=== PATIENT | female | born 1960 | race Two or more races ===

== ENCOUNTER 2020-11-17 07:20 | Inpatient (IN) | payer BC ==
[~2020-11-17] VITALS: Ht 154.9 cm; Wt 70.4 kg
[2020-11-17 08:59] LABS: BASOPHILS % (AUTO) 0.2 % (0-1); EOSINOPHILS % (AUTO) 0 % (0-6); HEMOGLOBIN 13.4 g/dl (12.0-16.0); LYMPHOCYTES # (AUTO) 0.7 X10'3 (1.1-4.8); LYMPHOCYTES % (AUTO) 6.7 % (21-51); MEAN CORPUSCULAR HGB CONC 33.5 g/dL (33.0-36.5); MEAN CORPUSCULAR VOLUME 83.4 FL (78-98); MEAN PLATELET VOLUME 6.7 FL (7.4-10.4); MONOCYTES # (AUTO) 0.8 X10'3 (0-0.9); MONOCYTES % (AUTO) 7.4 % (2-12); NEUTROPHILS # (AUTO) 9.5 X10'3 (1.8-7.7); NEUTROPHILS % (AUTO) 85.7 % (42-75); PLATELET COUNT 500 X10'3 (140-440); RED BLOOD COUNT 4.79 X10'6 (4.20-5.60); RED CELL DISTRIBUTION WIDTH 13.1 % (11.5-14.5); WHITE BLOOD COUNT 11.1 X10'3 (4.5-11.0)
[2020-11-17 09:26] LABS: ALANINE AMINOTRANSFERASE 34 U/L (12-78); ALBUMIN 2.6 G/DL (3.4-5.0); ALBUMIN/GLOBULIN RATIO 0.5 (1.1-1.5); ALKALINE PHOSPHATASE 294 IU/L (46-116); ANION GAP 13 (8-16); ASPARTATE AMINO TRANSFERASE 26 U/L (10-37); BILIRUBIN,TOTAL 0.5 MG/DL (0.1-1.0); BLOOD UREA NITROGEN 4 MG/DL (7-18); CALCIUM 8.4 MG/DL (8.5-10.1); CHLORIDE 101 MMOL/L (99-107); CREATININE 0.67 MG/DL (0.40-0.90); GLUCOSE 109 MG/DL (70-104); MAGNESIUM 2.2 MG/DL (1.5-2.4); SODIUM 140 MMOL/L (135-145); TOTAL CARBON DIOXIDE 26.1 MMOL/L (24-32); eGFR 89 ML/MIN
[2020-11-17] MEDS ORDERED: dexamethasone sod phosphate 10mg/ml inj IV STA (09:28)
[2020-11-17 09:39] LABS: POTASSIUM 2.6 MMOL/L (3.5-5.1)
[2020-11-17] MEDS ORDERED: potassium Cl 20 mEq SR tablet PO STA (09:39)
[2020-11-17] MEDS ORDERED: potassium Cl 10 mEq/100mL bag IV ONE (09:40)
[2020-11-17] MEDS ORDERED: proCHLORperazine 10 MG/2 ml inj IV ONE (09:40)
[2020-11-17] MEDS ORDERED: normal saline 1000ml 1,000 ML IV ONE (09:40)
[2020-11-17] MEDS ORDERED: ondansetron/PF 4mg/2ml inj IV ONE (09:40)
[2020-11-17 09:53] LABS: C-REACTIVE PROTEIN 13.57 MG/DL (0.0-0.5); LACTATE DEHYDROGENASE 408 U/L (81-234)
--- NOTE | 2020-11-17 09:57 | NUR ---
K 2.6 TAKEN BY QUOC SMITH
[2020-11-17] MEDS ORDERED: REMDESIVIR INJ 200 MG in normal saline 100ml IV soln 60 ML IV ONE (10:15)
[2020-11-17] MEDS ORDERED: dexamethasone 6 MG in NS 50ml IV soln IV STA (10:42)
[2020-11-17] MEDS ORDERED: ondansetron/PF 4mg/2ml inj IV PRN (10:55)
[2020-11-17] MEDS ORDERED: morphine 2 MG/ML inj. syringe IV PRN ×2 (10:55)
[2020-11-17] MEDS ORDERED: acetaminophen 325mg tablet PO PRN (10:55)
[2020-11-17] MEDS ORDERED: mag hydrox/Alum hydrox/simeth 30ml oral suspension PO PRN (10:55)
[2020-11-17 11:30] LABS: D-DIMER 1.39 MG/L FEU (0-0.50)
[2020-11-17 12:05] LABS: TROPONIN I < 0.04 NG/ML (0.0-0.05)
[2020-11-17] MEDS ORDERED: AMLO5TAB PO (14:47)
[2020-11-17] MEDS ORDERED: OMEP-50 PO (14:47)
[2020-11-17] MEDS ORDERED: HYDR-3972 PO (14:47)
[2020-11-17] MEDS ORDERED: ALPR0.5T8 PO (14:47)
[2020-11-17] MEDS ORDERED: VENL37.589 PO (14:47)
--- NOTE | 2020-11-17 15:00 | NUR ---
Incont. of urine and stool. Pt was cleaned.
[2020-11-17] MEDS ORDERED: HYDROcodone/acetaminophen 10/325mg tab PO PRN (16:30)
[2020-11-17] MEDS ORDERED: dexamethasone sod phosphate 10mg/ml inj IV SCH (20:00)
--- NOTE | 2020-11-17 21:02 | NUR ---
Report given to LUIS Ramírez.
--- NOTE | 2020-11-17 21:45 | NUR ---
Patient in room COVID 03. I have received report from Justice SMITH and had the opportunity to ask questions and assume patient care. patient admitted to the unit 2144 via . skin check perfoemd with ale smith.
[2020-11-17 22:00] VITALS: BP 117/68
[2020-11-17] MEDS: guaiFENesin/DM 10ml UD oral syrup PO PRN (22:17)
[2020-11-17] MEDS: docusate sod 100mg capsule PO SCH (22:17)
[2020-11-17] MEDS: acetaminophen 325mg tablet PO PRN (22:18)
[2020-11-17] MEDS: dexamethasone 6 MG in NS 50ml IV soln IV SCH (22:37)
[2020-11-18] MEDS ORDERED: magnesium Cl slow-release 64mg tablet PO PRN (00:10)
[2020-11-18] MEDS ORDERED: potassium Cl 40MEQ/1/2NS 520ml 520 ML IV PRN (00:10)
[2020-11-18] MEDS ORDERED: magnesium 4gm in 100ml NS 100 ML IV PRN (00:10)
[2020-11-18] MEDS ORDERED: potassium Cl 20 mEq SR tablet PO PRN (00:10)
[2020-11-18 00:56] LABS: MAGNESIUM 2.5 MG/DL (1.5-2.4); POTASSIUM 4.4 MMOL/L (3.5-5.1)
--- NOTE | 2020-11-18 06:43 | NUR ---
Patient in room COVID 03. I have received report from Marlys SMITH and had the opportunity to ask questions and assume patient care.
[2020-11-18 07:00] VITALS: BP 105/64
[2020-11-18] MEDS: K and/or MAG REPLACEMENT MC SCH ×2 (08:00→20:00)
[2020-11-18 09:02] LABS: BASOPHILS % (AUTO) 0.2 % (0-1); EOSINOPHILS % (AUTO) 0 % (0-6); HEMATOCRIT 38.9 % (35.0-45.0); HEMOGLOBIN 13.1 g/dl (12.0-16.0); LYMPHOCYTES # (AUTO) 0.6 X10'3 (1.1-4.8); LYMPHOCYTES % (AUTO) 4.8 % (21-51); MEAN CORPUSCULAR HEMOGLOBIN 28.4 PG (27.0-31.0); MEAN CORPUSCULAR HGB CONC 33.8 g/dL (33.0-36.5); MEAN CORPUSCULAR VOLUME 84.1 FL (78-98); MONOCYTES # (AUTO) 0.4 X10'3 (0-0.9); MONOCYTES % (AUTO) 3.5 % (2-12); NEUTROPHILS # (AUTO) 10.7 X10'3 (1.8-7.7); NEUTROPHILS % (AUTO) 91.5 % (42-75); PLATELET COUNT 596 X10'3 (140-440); RED BLOOD COUNT 4.62 X10'6 (4.20-5.60); RED CELL DISTRIBUTION WIDTH 13.4 % (11.5-14.5); WHITE BLOOD COUNT 11.7 X10'3 (4.5-11.0)
[2020-11-18 09:28] LABS: ALBUMIN 2.4 G/DL (3.4-5.0); ANION GAP 12 (8-16); BLOOD UREA NITROGEN 10 MG/DL (7-18); BUN/CREATININE RATIO 14.5 (6.6-38.0); CALCIUM 8.7 MG/DL (8.5-10.1); CHLORIDE 106 MMOL/L (99-107); CREATININE 0.69 MG/DL (0.40-0.90); GLUCOSE 168 MG/DL (70-104); POTASSIUM 3.5 MMOL/L (3.5-5.1); SODIUM 143 MMOL/L (135-145); TOTAL CARBON DIOXIDE 25.4 MMOL/L (24-32); eGFR 86 ML/MIN
[2020-11-18] MEDS: enoxaparin 40mg/0.4ml syringe SUBCUT SCH (09:29)
[2020-11-18] MEDS: pantoprazole 40mg Tablet.DR PO SCH (09:30)
[2020-11-18] MEDS: amLODIPine 5mg tablet PO SCH (09:30)
[2020-11-18] MEDS: docusate sod 100mg capsule PO SCH ×2 (09:31→21:01)
[2020-11-18] MEDS: venlafaxine XR 37.5mg cap (Q24H) PO SCH (09:31)
[2020-11-18] MEDS: REMDESIVIR INJ 100 MG in normal saline 100ml IV soln 80 ML IV SCH (09:31)
[2020-11-18] MEDS: dexamethasone 6 MG in NS 50ml IV soln IV SCH ×2 (09:32→21:01)
[2020-11-18] MEDS: HYDROcodone/acetaminophen 5mg/325mg tablet PO PRN (09:58)
[2020-11-18 11:00] VITALS: BP 138/78
--- NOTE | 2020-11-18 12:00 | NUR ---
Dr. Sanders to see pt new orders for imodium prn and robitussin AC prn at night for cough. per dr. sanders, only use the robitussin with codiene during the night.
[2020-11-18 16:13] VITALS: BP 66/78
[2020-11-18] MEDS ORDERED: loperamide 2mg capsule PO PRN (16:35)
--- NOTE | 2020-11-18 18:18 | NUR ---
Problems reprioritized. Patient report given, questions answered & plan of care reviewed with Prudence RN. Pt Spo2 stable on 15LPM High flow. pt eating dinner watching tv.
--- NOTE | 2020-11-18 18:45 | NUR ---
Patient in room COVID 03. I have received report from IVANA SMITH and had the opportunity to ask questions and assume patient care.
[2020-11-18] MEDS: HYDROcodone/acetaminophen 10/325mg tab PO PRN (21:21)
[2020-11-19] MEDS: guaiFENesin/codeine phos 10ml UD oral syrup PO PRN ×2 (02:04→22:29)
--- NOTE | 2020-11-19 06:36 | NUR ---
Problems reprioritized. Patient report given, questions answered & plan of care reviewed with MIL SMITH.
--- NOTE | 2020-11-19 06:36 | NUR ---
Patient in room COVID 03. I have received report from Felisha SMITH and had the opportunity to ask questions and assume patient care.
[2020-11-19 07:00] VITALS: BP 112/73
[2020-11-19] MEDS: K and/or MAG REPLACEMENT MC SCH ×2 (08:00→20:00)
[2020-11-19 08:59] LABS: EOSINOPHILS % (AUTO) 0 % (0-6); HEMOGLOBIN 12.6 g/dl (12.0-16.0); MEAN CORPUSCULAR HEMOGLOBIN 28.2 PG (27.0-31.0); MONOCYTES # (AUTO) 0.5 X10'3 (0-0.9); NEUTROPHILS % (AUTO) 93.1 % (42-75); RED CELL DISTRIBUTION WIDTH 13.5 % (11.5-14.5)
[2020-11-19 09:01] LABS: BASOPHILS % (AUTO) 0.1 % (0-1); HEMATOCRIT 38.6 % (35.0-45.0); LYMPHOCYTES # (AUTO) 0.9 X10'3 (1.1-4.8); LYMPHOCYTES % (AUTO) 4.5 % (21-51); MEAN CORPUSCULAR HGB CONC 32.5 g/dL (33.0-36.5); MEAN CORPUSCULAR VOLUME 86.5 FL (78-98); MONOCYTES % (AUTO) 2.3 % (2-12); NEUTROPHILS # (AUTO) 18.5 X10'3 (1.8-7.7); PLATELET COUNT 684 X10'3 (140-440); RED BLOOD COUNT 4.47 X10'6 (4.20-5.60); WHITE BLOOD COUNT 19.8 X10'3 (4.5-11.0)
[2020-11-19 09:08] LABS: ALBUMIN 2.1 G/DL (3.4-5.0); ANION GAP 12 (8-16); BLOOD UREA NITROGEN 15 MG/DL (7-18); BUN/CREATININE RATIO 22.4 (6.6-38.0); CALCIUM 8.5 MG/DL (8.5-10.1); CHLORIDE 109 MMOL/L (99-107); CREATININE 0.67 MG/DL (0.40-0.90); GLUCOSE 130 MG/DL (70-104); POTASSIUM 3.2 MMOL/L (3.5-5.1); SODIUM 146 MMOL/L (135-145); TOTAL CARBON DIOXIDE 25.3 MMOL/L (24-32); eGFR 89 ML/MIN
[2020-11-19] MEDS: dexamethasone 6 MG in NS 50ml IV soln IV SCH ×2 (09:23→20:01)
[2020-11-19] MEDS: docusate sod 100mg capsule PO SCH ×2 (09:24→20:01)
[2020-11-19] MEDS: amLODIPine 5mg tablet PO SCH (09:24)
[2020-11-19] MEDS: pantoprazole 40mg Tablet.DR PO SCH (09:24)
[2020-11-19] MEDS: enoxaparin 40mg/0.4ml syringe SUBCUT SCH ×2 (09:25→20:01)
[2020-11-19] MEDS: venlafaxine XR 37.5mg cap (Q24H) PO SCH (09:31)
[2020-11-19] MEDS: guaiFENesin/DM 10ml UD oral syrup PO PRN (09:37)
[2020-11-19] MEDS: REMDESIVIR INJ 100 MG in normal saline 100ml IV soln 80 ML IV SCH (09:54)
[2020-11-19 11:00] VITALS: BP 98/58
[2020-11-19] MEDS: potassium Cl 20 mEq SR tablet PO PRN ×2 (14:34→20:01)
--- NOTE | 2020-11-19 18:37 | NUR ---
Problems reprioritized. Patient report given, questions answered & plan of care reviewed with Chelsie SMITH.
[2020-11-19 20:00] VITALS: BP 113/65
[2020-11-20 02:00] VITALS: BP 108/64
--- NOTE | 2020-11-20 06:54 | NUR ---
I have received report from Chelsie SMITH and had the opportunity to ask questions and assume patient care.
[2020-11-20 07:47] VITALS: BP 120/69
[2020-11-20] MEDS: K and/or MAG REPLACEMENT MC SCH ×2 (08:00→20:00)
[2020-11-20] MEDS: docusate sod 100mg capsule PO SCH ×2 (08:00→19:47)
[2020-11-20 08:26] LABS: BASOPHILS % (AUTO) 0.1 % (0-1); EOSINOPHILS % (AUTO) 0 % (0-6); HEMATOCRIT 38.6 % (35.0-45.0); HEMOGLOBIN 12.7 g/dl (12.0-16.0); LYMPHOCYTES # (AUTO) 0.7 X10'3 (1.1-4.8); LYMPHOCYTES % (AUTO) 4.2 % (21-51); MEAN CORPUSCULAR HEMOGLOBIN 28.3 PG (27.0-31.0); MEAN CORPUSCULAR VOLUME 85.8 FL (78-98); MEAN PLATELET VOLUME 6.9 FL (7.4-10.4); MONOCYTES # (AUTO) 0.7 X10'3 (0-0.9); MONOCYTES % (AUTO) 4.7 % (2-12); NEUTROPHILS # (AUTO) 14.4 X10'3 (1.8-7.7); PLATELET COUNT 662 X10'3 (140-440); RED BLOOD COUNT 4.49 X10'6 (4.20-5.60); RED CELL DISTRIBUTION WIDTH 13.3 % (11.5-14.5); WHITE BLOOD COUNT 15.8 X10'3 (4.5-11.0)
[2020-11-20 08:56] LABS: D-DIMER 2.01 MG/L FEU (0-0.50)
[2020-11-20] MEDS: dexamethasone 6 MG in NS 50ml IV soln IV SCH ×2 (09:12→19:47)
[2020-11-20] MEDS: venlafaxine XR 37.5mg cap (Q24H) PO SCH (09:14)
[2020-11-20] MEDS: pantoprazole 40mg Tablet.DR PO SCH (09:15)
[2020-11-20] MEDS: amLODIPine 5mg tablet PO SCH (09:15)
[2020-11-20] MEDS: enoxaparin 40mg/0.4ml syringe SUBCUT SCH ×2 (09:16→19:48)
[2020-11-20 09:32] LABS: ALBUMIN 2.2 G/DL (3.4-5.0); ANION GAP 9 (8-16); BLOOD UREA NITROGEN 16 MG/DL (7-18); BUN/CREATININE RATIO 26.7 (6.6-38.0); C-REACTIVE PROTEIN 1.89 MG/DL (0.0-0.5); CALCIUM 8.7 MG/DL (8.5-10.1); CHLORIDE 112 MMOL/L (99-107); GLUCOSE 101 MG/DL (70-104); POTASSIUM 3.8 MMOL/L (3.5-5.1); SODIUM 148 MMOL/L (135-145); TOTAL CARBON DIOXIDE 26.6 MMOL/L (24-32); eGFR > 90 ML/MIN
[2020-11-20] MEDS: REMDESIVIR INJ 100 MG in normal saline 100ml IV soln 80 ML IV SCH (09:36)
[2020-11-20 12:27] VITALS: BP 119/68
[2020-11-20] MEDS: LORazepam 1 MG tablet PO PRN (15:18)
[2020-11-20 16:49] VITALS: BP 122/76
[2020-11-20 18:00] VITALS: BP 152/71
--- NOTE | 2020-11-20 18:42 | NUR ---
Patient in room COVID 03. I have received report from PHOENIX SMITH and had the opportunity to ask questions and assume patient care.
[2020-11-20] MEDS: magnesium hydroxide 30ml (MOM) UD suspension PO PRN (20:06)
[2020-11-20 22:00] VITALS: BP 160/99
[2020-11-20] MEDS: guaiFENesin/codeine phos 10ml UD oral syrup PO PRN (22:14)
[2020-11-21 02:00] VITALS: BP 136/79
--- NOTE | 2020-11-21 06:36 | NUR ---
Problems reprioritized. Patient report given, questions answered & plan of care reviewed with MARIA DE JESUS SMITH.
[2020-11-21 07:00] VITALS: BP 133/81
--- NOTE | 2020-11-21 07:17 | NUR ---
Patient in room COVID 03. I have received report from Felisha Killian and had the opportunity to ask questions and assume patient care.
[2020-11-21] MEDS: dexamethasone 6 MG in NS 50ml IV soln IV SCH ×2 (07:52→21:47)
[2020-11-21] MEDS: pantoprazole 40mg Tablet.DR PO SCH (07:53)
[2020-11-21] MEDS: docusate sod 100mg capsule PO SCH ×2 (07:53→21:48)
[2020-11-21] MEDS: venlafaxine XR 37.5mg cap (Q24H) PO SCH (07:53)
[2020-11-21] MEDS: REMDESIVIR INJ 100 MG in normal saline 100ml IV soln 80 ML IV SCH (07:53)
[2020-11-21] MEDS: enoxaparin 40mg/0.4ml syringe SUBCUT SCH ×2 (07:53→21:48)
[2020-11-21] MEDS: amLODIPine 5mg tablet PO SCH (07:53)
[2020-11-21] MEDS: K and/or MAG REPLACEMENT MC SCH ×2 (08:00→20:00)
[2020-11-21 08:14] LABS: EOSINOPHILS % (AUTO) 0 % (0-6)
[2020-11-21 08:17] LABS: BASOPHILS % (AUTO) 0.1 % (0-1); HEMATOCRIT 38.8 % (35.0-45.0); HEMOGLOBIN 13.2 g/dl (12.0-16.0); LYMPHOCYTES # (AUTO) 0.6 X10'3 (1.1-4.8); LYMPHOCYTES % (AUTO) 4.7 % (21-51); MEAN CORPUSCULAR HEMOGLOBIN 28.8 PG (27.0-31.0); MEAN CORPUSCULAR VOLUME 84.9 FL (78-98); MEAN PLATELET VOLUME 6.6 FL (7.4-10.4); MONOCYTES # (AUTO) 0.6 X10'3 (0-0.9); MONOCYTES % (AUTO) 4.4 % (2-12); NEUTROPHILS # (AUTO) 11.7 X10'3 (1.8-7.7); NEUTROPHILS % (AUTO) 90.8 % (42-75); PLATELET COUNT 760 X10'3 (140-440); RED BLOOD COUNT 4.56 X10'6 (4.20-5.60); RED CELL DISTRIBUTION WIDTH 13.3 % (11.5-14.5); WHITE BLOOD COUNT 12.9 X10'3 (4.5-11.0)
[2020-11-21 08:20] LABS: ALBUMIN 2.2 G/DL (3.4-5.0); ANION GAP 7 (8-16); BLOOD UREA NITROGEN 18 MG/DL (7-18); C-REACTIVE PROTEIN 1.49 MG/DL (0.0-0.5); CALCIUM 8.2 MG/DL (8.5-10.1); CHLORIDE 110 MMOL/L (99-107); GLUCOSE 108 MG/DL (70-104); POTASSIUM 4.1 MMOL/L (3.5-5.1); SODIUM 146 MMOL/L (135-145); TOTAL CARBON DIOXIDE 28.7 MMOL/L (24-32); eGFR > 90 ML/MIN
[2020-11-21 08:23] LABS: D-DIMER 1.39 MG/L FEU (0-0.50)
[2020-11-21 11:00] VITALS: BP 134/91
[2020-11-21 15:00] VITALS: BP 134/78
[2020-11-21 18:00] VITALS: BP 118/56
--- NOTE | 2020-11-21 18:32 | NUR ---
Problems reprioritized. Patient report given, questions answered & plan of care reviewed with Kylie Killian.
[2020-11-21 22:00] VITALS: BP 136/76
--- NOTE | 2020-11-22 06:30 | NUR ---
I have received report from Karon SMITH and had the opportunity to ask questions and assume patient care.
[2020-11-22 07:00] VITALS: BP 117/81
[2020-11-22] MEDS: dexamethasone 6 MG in NS 50ml IV soln IV SCH (07:57)
[2020-11-22] MEDS: amLODIPine 5mg tablet PO SCH (07:57)
[2020-11-22] MEDS: enoxaparin 40mg/0.4ml syringe SUBCUT SCH ×2 (07:58→22:38)
[2020-11-22] MEDS: venlafaxine XR 37.5mg cap (Q24H) PO SCH (07:58)
[2020-11-22] MEDS: pantoprazole 40mg Tablet.DR PO SCH (07:58)
[2020-11-22] MEDS: docusate sod 100mg capsule PO SCH ×2 (07:58→20:00)
[2020-11-22] MEDS: K and/or MAG REPLACEMENT MC SCH ×2 (08:00→20:00)
[2020-11-22] MEDS: ALPRAZolam 0.5mg tablet PO PRN (08:00)
[2020-11-22 09:08] LABS: EOSINOPHILS % (AUTO) 0 % (0-6); HEMOGLOBIN 13.8 g/dl (12.0-16.0); LYMPHOCYTES # (AUTO) 0.6 X10'3 (1.1-4.8); MEAN CORPUSCULAR VOLUME 85.6 FL (78-98); MONOCYTES # (AUTO) 0.4 X10'3 (0-0.9); NEUTROPHILS % (AUTO) 92.7 % (42-75); RED CELL DISTRIBUTION WIDTH 13.3 % (11.5-14.5); WHITE BLOOD COUNT 14.3 X10'3 (4.5-11.0)
[2020-11-22 09:10] LABS: BASOPHILS % (AUTO) 0.2 % (0-1); HEMATOCRIT 42.4 % (35.0-45.0); MEAN CORPUSCULAR HEMOGLOBIN 27.8 PG (27.0-31.0); MEAN CORPUSCULAR HGB CONC 32.5 g/dL (33.0-36.5); MEAN PLATELET VOLUME 6.8 FL (7.4-10.4); MONOCYTES % (AUTO) 3.1 % (2-12); NEUTROPHILS # (AUTO) 13.3 X10'3 (1.8-7.7); PLATELET COUNT 885 X10'3 (140-440); RED BLOOD COUNT 4.95 X10'6 (4.20-5.60)
[2020-11-22 09:29] LABS: ALBUMIN 2.3 G/DL (3.4-5.0); C-REACTIVE PROTEIN 0.97 MG/DL (0.0-0.5); CALCIUM 8.3 MG/DL (8.5-10.1); CHLORIDE 106 MMOL/L (99-107); CREATININE 0.56 MG/DL (0.40-0.90); GLUCOSE 112 MG/DL (70-104); POTASSIUM 3.6 MMOL/L (3.5-5.1); TOTAL CARBON DIOXIDE 27.5 MMOL/L (24-32); eGFR > 90 ML/MIN
[2020-11-22 09:32] LABS: ANION GAP 10 (8-16); BLOOD UREA NITROGEN 18 MG/DL (7-18); BUN/CREATININE RATIO 32.1 (6.6-38.0); SODIUM 143 MMOL/L (135-145)
[2020-11-22 11:11] LABS: D-DIMER 1.04 MG/L FEU (0-0.50)
--- NOTE | 2020-11-22 12:33 | NUR ---
Initial: Pt admitted w/ +Covid and is still quite short of breath per EMR. Pt's PO intake is low because of this, avg 24% x 11 meals on Regular diet not meeting needs, though PO intake did improve this morning. Pt may benefit from ONS at this time. No N/V/D noted, LBM 11/21. Will continue to monitor PO trends. Recommend: 1. Continue Regular diet as tolerated 2. Ensure Enlive BID BD to provide 700kcals and 40g protein if consumed 100% 3. Bowel care per rx 4. Weekly wts Addendum: 11/22/20 at [address] Amended: Links added.
[2020-11-22 12:51] VITALS: BP 119/69
[2020-11-22 16:07] VITALS: BP 141/80
[2020-11-22] MEDS: lactose-reduced food (Ensure Enlive) - 237ml bottle PO SCH (17:30)
[2020-11-22 18:00] VITALS: BP 108/59
[2020-11-22 22:00] VITALS: BP 102/62
[2020-11-23] MEDS: dexamethasone inj 4 MG in normal saline 50ml IV soln 50 ML IV SCH ×3 (00:14→19:53)
[2020-11-23 02:00] VITALS: BP 99/63
[2020-11-23 06:00] VITALS: BP 106/63
[2020-11-23] MEDS: lactose-reduced food (Ensure Enlive) - 237ml bottle PO SCH (07:30)
[2020-11-23] MEDS: venlafaxine XR 37.5mg cap (Q24H) PO SCH (08:00)
[2020-11-23] MEDS: K and/or MAG REPLACEMENT MC SCH ×2 (08:00→19:53)
[2020-11-23 08:17] LABS: BASOPHILS # (AUTO) 0.1 X10'3 (0-0.2); BASOPHILS % (AUTO) 0.5 % (0-1); EOSINOPHILS % (AUTO) 0.1 % (0-6); HEMATOCRIT 39.2 % (35.0-45.0); HEMOGLOBIN 12.7 g/dl (12.0-16.0); LYMPHOCYTES # (AUTO) 0.5 X10'3 (1.1-4.8); LYMPHOCYTES % (AUTO) 4.4 % (21-51); MEAN CORPUSCULAR HEMOGLOBIN 28.1 PG (27.0-31.0); MEAN CORPUSCULAR HGB CONC 32.5 g/dL (33.0-36.5); MEAN CORPUSCULAR VOLUME 86.7 FL (78-98); MEAN PLATELET VOLUME 6.8 FL (7.4-10.4); MONOCYTES # (AUTO) 0.3 X10'3 (0-0.9); MONOCYTES % (AUTO) 2.7 % (2-12); NEUTROPHILS # (AUTO) 11.5 X10'3 (1.8-7.7); NEUTROPHILS % (AUTO) 92.3 % (42-75); PLATELET COUNT 777 X10'3 (140-440); RED BLOOD COUNT 4.53 X10'6 (4.20-5.60); RED CELL DISTRIBUTION WIDTH 13.6 % (11.5-14.5); WHITE BLOOD COUNT 12.5 X10'3 (4.5-11.0)
[2020-11-23 08:27] LABS: D-DIMER 0.78 MG/L FEU (0-0.50)
[2020-11-23 08:45] LABS: ALANINE AMINOTRANSFERASE 17 U/L (12-78); ALBUMIN 2.1 G/DL (3.4-5.0); ALBUMIN/GLOBULIN RATIO 0.5 (1.1-1.5); ALKALINE PHOSPHATASE 246 IU/L (46-116); ANION GAP 7 (8-16); ASPARTATE AMINO TRANSFERASE 14 U/L (10-37); BILIRUBIN,TOTAL 0.4 MG/DL (0.1-1.0); BLOOD UREA NITROGEN 17 MG/DL (7-18); BUN/CREATININE RATIO 27.9 (6.6-38.0); C-REACTIVE PROTEIN 0.39 MG/DL (0.0-0.5); CHLORIDE 106 MMOL/L (99-107); CREATININE 0.61 MG/DL (0.40-0.90); GLUCOSE 109 MG/DL (70-104); POTASSIUM 4.3 MMOL/L (3.5-5.1); SODIUM 141 MMOL/L (135-145); TOTAL CARBON DIOXIDE 27.6 MMOL/L (24-32); TOTAL PROTEIN 6.6 G/DL (6.4-8.2); eGFR > 90 ML/MIN
[2020-11-23] MEDS: pantoprazole 40mg Tablet.DR PO SCH (10:14)
[2020-11-23] MEDS: docusate sod 100mg capsule PO SCH ×2 (10:14→19:54)
[2020-11-23] MEDS: enoxaparin 40mg/0.4ml syringe SUBCUT SCH ×2 (10:15→19:55)
[2020-11-23] MEDS: amLODIPine 5mg tablet PO SCH (10:18)
[2020-11-23 12:30] VITALS: BP 119/63
[2020-11-23 18:00] VITALS: BP 135/77
[2020-11-23 22:00] VITALS: BP 105/79
[2020-11-24 02:00] VITALS: BP 99/61
--- NOTE | 2020-11-24 06:56 | NUR ---
Patient in room COVID 03. I have received report from Jennifer SMITH and had the opportunity to ask questions and assume patient care.
[2020-11-24 07:00] VITALS: BP 108/65
[2020-11-24 07:16] LABS: MONOCYTES # (AUTO) 0.6 X10'3 (0-0.9)
[2020-11-24 07:17] LABS: BASOPHILS % (AUTO) 0.3 % (0-1); EOSINOPHILS % (AUTO) 0 % (0-6); HEMATOCRIT 38.6 % (35.0-45.0); LYMPHOCYTES # (AUTO) 0.9 X10'3 (1.1-4.8); LYMPHOCYTES % (AUTO) 8.6 % (21-51); MEAN CORPUSCULAR HEMOGLOBIN 28.7 PG (27.0-31.0); MEAN CORPUSCULAR HGB CONC 33.6 g/dL (33.0-36.5); MEAN CORPUSCULAR VOLUME 85.3 FL (78-98); MEAN PLATELET VOLUME 6.8 FL (7.4-10.4); MONOCYTES % (AUTO) 5.4 % (2-12); NEUTROPHILS # (AUTO) 9.2 X10'3 (1.8-7.7); NEUTROPHILS % (AUTO) 85.7 % (42-75); PLATELET COUNT 739 X10'3 (140-440); RED BLOOD COUNT 4.52 X10'6 (4.20-5.60); RED CELL DISTRIBUTION WIDTH 13.3 % (11.5-14.5); WHITE BLOOD COUNT 10.7 X10'3 (4.5-11.0)
[2020-11-24 07:38] LABS: ALANINE AMINOTRANSFERASE 17 U/L (12-78); ALBUMIN 2.1 G/DL (3.4-5.0); ALBUMIN/GLOBULIN RATIO 0.5 (1.1-1.5); ALKALINE PHOSPHATASE 221 IU/L (46-116); ANION GAP 9 (8-16); ASPARTATE AMINO TRANSFERASE 21 U/L (10-37); BILIRUBIN,TOTAL 0.4 MG/DL (0.1-1.0); BLOOD UREA NITROGEN 13 MG/DL (7-18); C-REACTIVE PROTEIN 0.19 MG/DL (0.0-0.5); CALCIUM 7.9 MG/DL (8.5-10.1); CHLORIDE 105 MMOL/L (99-107); CREATININE 0.59 MG/DL (0.40-0.90); GLUCOSE 100 MG/DL (70-104); POTASSIUM 4.2 MMOL/L (3.5-5.1); SODIUM 141 MMOL/L (135-145); TOTAL CARBON DIOXIDE 27.1 MMOL/L (24-32); TOTAL PROTEIN 6.3 G/DL (6.4-8.2); eGFR > 90 ML/MIN
[2020-11-24] MEDS: K and/or MAG REPLACEMENT MC SCH ×2 (08:00→20:00)
[2020-11-24] MEDS: dexamethasone inj 4 MG in normal saline 50ml IV soln 50 ML IV SCH (08:25)
[2020-11-24] MEDS: amLODIPine 5mg tablet PO SCH (08:25)
[2020-11-24] MEDS: pantoprazole 40mg Tablet.DR PO SCH (08:25)
[2020-11-24] MEDS: docusate sod 100mg capsule PO SCH ×2 (08:25→20:00)
[2020-11-24] MEDS: venlafaxine XR 37.5mg cap (Q24H) PO SCH (08:26)
[2020-11-24] MEDS: enoxaparin 40mg/0.4ml syringe SUBCUT SCH ×2 (08:26→19:47)
[2020-11-24] MEDS: LORazepam 1 MG tablet PO PRN (08:48)
[2020-11-24 11:00] VITALS: BP 121/63
[2020-11-24 18:00] VITALS: BP 127/76
--- NOTE | 2020-11-24 18:26 | NUR ---
Problems reprioritized. Patient report given, questions answered & plan of care reviewed with Kylie SMITH.
[2020-11-24] MEDS: lactose-reduced food (Ensure Enlive) - 237ml bottle PO SCH (18:29)
[2020-11-24 22:00] VITALS: BP 113/65
[2020-11-25 02:00] VITALS: BP 99/61
--- NOTE | 2020-11-25 06:53 | NUR ---
Problems reprioritized. Patient report given, questions answered & plan of care reviewed with Jon SMITH.
[2020-11-25 07:00] VITALS: BP 104/67
[2020-11-25] MEDS: enoxaparin 40mg/0.4ml syringe SUBCUT SCH ×2 (07:19→21:57)
[2020-11-25] MEDS: venlafaxine XR 37.5mg cap (Q24H) PO SCH (07:20)
[2020-11-25] MEDS: pantoprazole 40mg Tablet.DR PO SCH (07:20)
[2020-11-25] MEDS: docusate sod 100mg capsule PO SCH ×3 (07:20→21:56)
[2020-11-25] MEDS: amLODIPine 5mg tablet PO SCH (07:21)
[2020-11-25] MEDS: ALPRAZolam 0.5mg tablet PO PRN (07:24)
[2020-11-25] MEDS: acetaminophen 325mg tablet PO PRN (07:30)
[2020-11-25] MEDS: lactose-reduced food (Ensure Enlive) - 237ml bottle PO SCH ×2 (07:31→16:42)
[2020-11-25] MEDS: dexamethasone inj 4 MG in normal saline 50ml IV soln 50 ML IV SCH (07:36)
[2020-11-25] MEDS: K and/or MAG REPLACEMENT MC SCH ×2 (08:00→20:00)
[2020-11-25 09:07] LABS: BASOPHILS % (AUTO) 0.2 % (0-1); EOSINOPHILS # (AUTO) 0.2 X10'3 (0-0.9); EOSINOPHILS % (AUTO) 1.5 % (0-6); HEMATOCRIT 41.1 % (35.0-45.0); HEMOGLOBIN 13.9 g/dl (12.0-16.0); LYMPHOCYTES # (AUTO) 2.1 X10'3 (1.1-4.8); LYMPHOCYTES % (AUTO) 14.5 % (21-51); MEAN CORPUSCULAR HGB CONC 33.9 g/dL (33.0-36.5); MEAN CORPUSCULAR VOLUME 85.5 FL (78-98); MEAN PLATELET VOLUME 6.9 FL (7.4-10.4); NEUTROPHILS # (AUTO) 11.1 X10'3 (1.8-7.7); NEUTROPHILS % (AUTO) 76.8 % (42-75); PLATELET COUNT 691 X10'3 (140-440); RED CELL DISTRIBUTION WIDTH 13.5 % (11.5-14.5); WHITE BLOOD COUNT 14.4 X10'3 (4.5-11.0)
[2020-11-25 09:21] LABS: ALANINE AMINOTRANSFERASE 17 U/L (12-78); ALBUMIN 2.3 G/DL (3.4-5.0); ALBUMIN/GLOBULIN RATIO 0.5 (1.1-1.5); ALKALINE PHOSPHATASE 212 IU/L (46-116); ANION GAP 7 (8-16); ASPARTATE AMINO TRANSFERASE 18 U/L (10-37); BILIRUBIN,TOTAL 0.4 MG/DL (0.1-1.0); BLOOD UREA NITROGEN 12 MG/DL (7-18); BUN/CREATININE RATIO 21.1 (6.6-38.0); C-REACTIVE PROTEIN 0.06 MG/DL (0.0-0.5); CALCIUM 8.1 MG/DL (8.5-10.1); CHLORIDE 105 MMOL/L (99-107); CREATININE 0.57 MG/DL (0.40-0.90); GLUCOSE 77 MG/DL (70-104); POTASSIUM 3.2 MMOL/L (3.5-5.1); SODIUM 142 MMOL/L (135-145); TOTAL CARBON DIOXIDE 30.2 MMOL/L (24-32); TOTAL PROTEIN 6.7 G/DL (6.4-8.2); eGFR > 90 ML/MIN
[2020-11-25 09:35] LABS: D-DIMER 0.88 MG/L FEU (0-0.50)
[2020-11-25] MEDS ORDERED: potassium Cl 20 mEq SR tablet PO PRN (10:30)
[2020-11-25] MEDS: potassium Cl 20 mEq SR tablet PO PRN ×2 (10:49→16:40)
[2020-11-25 11:00] VITALS: BP 107/59
[2020-11-25 15:00] VITALS: BP 107/59
[2020-11-25 18:00] VITALS: BP 111/67
--- NOTE | 2020-11-25 18:04 | NUR ---
Problems reprioritized. Patient report given, questions answered & plan of care reviewed with the night shift supervisor RN.
[2020-11-25 22:00] VITALS: BP 121/73
[2020-11-26 02:00] VITALS: BP 129/68
--- NOTE | 2020-11-26 06:51 | NUR ---
Patient in room COVID 03. I have received report from Ashely SMITH and had the opportunity to ask questions and assume patient care.
[2020-11-26] MEDS: docusate sod 100mg capsule PO SCH ×2 (07:13→19:59)
[2020-11-26] MEDS: venlafaxine XR 37.5mg cap (Q24H) PO SCH (07:13)
[2020-11-26] MEDS: pantoprazole 40mg Tablet.DR PO SCH (07:14)
[2020-11-26] MEDS: enoxaparin 40mg/0.4ml syringe SUBCUT SCH ×2 (07:14→19:59)
[2020-11-26] MEDS: dexamethasone inj 4 MG in normal saline 50ml IV soln 50 ML IV SCH (07:15)
[2020-11-26 07:21] LABS: BASOPHILS % (AUTO) 0.2 % (0-1); EOSINOPHILS # (AUTO) 0.3 X10'3 (0-0.9); EOSINOPHILS % (AUTO) 1.9 % (0-6); HEMATOCRIT 40.1 % (35.0-45.0); HEMOGLOBIN 13.5 g/dl (12.0-16.0); LYMPHOCYTES # (AUTO) 1.8 X10'3 (1.1-4.8); LYMPHOCYTES % (AUTO) 12.5 % (21-51); MEAN CORPUSCULAR HEMOGLOBIN 28.4 PG (27.0-31.0); MEAN CORPUSCULAR HGB CONC 33.8 g/dL (33.0-36.5); MEAN CORPUSCULAR VOLUME 84.1 FL (78-98); MEAN PLATELET VOLUME 6.4 FL (7.4-10.4); MONOCYTES # (AUTO) 1.1 X10'3 (0-0.9); MONOCYTES % (AUTO) 7.4 % (2-12); NEUTROPHILS # (AUTO) 11.5 X10'3 (1.8-7.7); PLATELET COUNT 604 X10'3 (140-440); RED BLOOD COUNT 4.77 X10'6 (4.20-5.60); RED CELL DISTRIBUTION WIDTH 13.6 % (11.5-14.5); WHITE BLOOD COUNT 14.7 X10'3 (4.5-11.0)
[2020-11-26] MEDS: lactose-reduced food (Ensure Enlive) - 237ml bottle PO SCH ×2 (07:30→17:30)
[2020-11-26 07:36] LABS: D-DIMER 0.81 MG/L FEU (0-0.50)
[2020-11-26 07:42] LABS: ALANINE AMINOTRANSFERASE 23 U/L (12-78); ALBUMIN 2.3 G/DL (3.4-5.0); ALBUMIN/GLOBULIN RATIO 0.5 (1.1-1.5); ALKALINE PHOSPHATASE 208 IU/L (46-116); ANION GAP 6 (8-16); ASPARTATE AMINO TRANSFERASE 20 U/L (10-37); BILIRUBIN,TOTAL 0.3 MG/DL (0.1-1.0); BLOOD UREA NITROGEN 11 MG/DL (7-18); BUN/CREATININE RATIO 16.7 (6.6-38.0); C-REACTIVE PROTEIN 0.95 MG/DL (0.0-0.5); CALCIUM 8.3 MG/DL (8.5-10.1); CHLORIDE 104 MMOL/L (99-107); CREATININE 0.66 MG/DL (0.40-0.90); GLUCOSE 87 MG/DL (70-104); POTASSIUM 4.2 MMOL/L (3.5-5.1); SODIUM 141 MMOL/L (135-145); TOTAL CARBON DIOXIDE 31.2 MMOL/L (24-32); TOTAL PROTEIN 6.7 G/DL (6.4-8.2); eGFR > 90 ML/MIN
[2020-11-26 08:00] VITALS: BP 114/73
[2020-11-26] MEDS: K and/or MAG REPLACEMENT MC SCH ×2 (08:00→19:55)
[2020-11-26] MEDS: amLODIPine 5mg tablet PO SCH (08:39)
[2020-11-26 12:00] VITALS: BP 123/70
--- NOTE | 2020-11-26 14:54 | NUR ---
Reassessment: Patient's PO intake appears to be improving with average 50% PO intake up to average 67% PO intake over the last two days. Pt receiving Ensure Enlive BIDBD, documented with 100% PO intake first ONS down to 50% PO intake at second ONS. Noted pt refused ONS at dinner 11/25 and pending documentation of all PO intake for today. Pt will be meeting estimated nutrient needs if current trends in PO intake of meals continues. LBM 11/25. No further nutrition intervention implemented at this time. Will continue to follow and make recommendations as appropriate. Recommend: 1. Continue regular diet 2. Ensure Enlive BIDBD 3. Routine bowel care 4. Weekly scaled weights Addendum: 11/26/20 at [address] Amended: Links added.
[2020-11-26 17:00] VITALS: BP 110/65
[2020-11-26 18:00] VITALS: BP 90/35
--- NOTE | 2020-11-26 18:34 | NUR ---
Problems reprioritized. Patient report given, questions answered & plan of care reviewed with Prudence RN.
--- NOTE | 2020-11-26 18:57 | NUR ---
Patient in room COVID 03. I have received report from MIL SMITH and had the opportunity to ask questions and assume patient care.
[2020-11-26 22:00] VITALS: BP 108/70
[2020-11-27 02:00] VITALS: BP 98/68
--- NOTE | 2020-11-27 06:37 | NUR ---
Problems reprioritized. Patient report given, questions answered & plan of care reviewed with PHOENIX SMITH.
[2020-11-27] MEDS: lactose-reduced food (Ensure Enlive) - 237ml bottle PO SCH ×2 (07:30→19:00)
[2020-11-27 07:41] LABS: BASOPHILS # (AUTO) 0.1 X10'3 (0-0.2); EOSINOPHILS # (AUTO) 0.3 X10'3 (0-0.9); HEMOGLOBIN 13.4 g/dl (12.0-16.0)
[2020-11-27 07:43] LABS: BASOPHILS % (AUTO) 0.7 % (0-1); EOSINOPHILS % (AUTO) 1.7 % (0-6); HEMATOCRIT 41.1 % (35.0-45.0); LYMPHOCYTES # (AUTO) 1.6 X10'3 (1.1-4.8); LYMPHOCYTES % (AUTO) 10.2 % (21-51); MEAN CORPUSCULAR HGB CONC 32.6 g/dL (33.0-36.5); MEAN CORPUSCULAR VOLUME 85.9 FL (78-98); MONOCYTES # (AUTO) 1.3 X10'3 (0-0.9); MONOCYTES % (AUTO) 8.1 % (2-12); NEUTROPHILS # (AUTO) 12.5 X10'3 (1.8-7.7); NEUTROPHILS % (AUTO) 79.3 % (42-75); PLATELET COUNT 635 X10'3 (140-440); RED BLOOD COUNT 4.78 X10'6 (4.20-5.60); RED CELL DISTRIBUTION WIDTH 13.7 % (11.5-14.5); WHITE BLOOD COUNT 15.8 X10'3 (4.5-11.0)
[2020-11-27] MEDS: venlafaxine XR 37.5mg cap (Q24H) PO SCH (07:52)
[2020-11-27] MEDS: ALPRAZolam 0.5mg tablet PO PRN ×2 (07:52→19:13)
[2020-11-27] MEDS: dexamethasone inj 4 MG in normal saline 50ml IV soln 50 ML IV SCH (07:52)
[2020-11-27] MEDS: enoxaparin 40mg/0.4ml syringe SUBCUT SCH ×2 (07:52→20:30)
[2020-11-27] MEDS: docusate sod 100mg capsule PO SCH ×2 (07:52→20:00)
[2020-11-27] MEDS: amLODIPine 5mg tablet PO SCH (07:56)
[2020-11-27] MEDS: pantoprazole 40mg Tablet.DR PO SCH (07:57)
[2020-11-27 08:00] VITALS: BP 106/60
[2020-11-27] MEDS: K and/or MAG REPLACEMENT MC SCH ×2 (08:00→18:54)
[2020-11-27 08:06] LABS: ALANINE AMINOTRANSFERASE 25 U/L (12-78); ALBUMIN 2.4 G/DL (3.4-5.0); ALBUMIN/GLOBULIN RATIO 0.5 (1.1-1.5); ALKALINE PHOSPHATASE 201 IU/L (46-116); ANION GAP 7 (8-16); ASPARTATE AMINO TRANSFERASE 14 U/L (10-37); BILIRUBIN,TOTAL 0.4 MG/DL (0.1-1.0); BLOOD UREA NITROGEN 17 MG/DL (7-18); BUN/CREATININE RATIO 30.4 (6.6-38.0); CALCIUM 8.9 MG/DL (8.5-10.1); CHLORIDE 103 MMOL/L (99-107); CREATININE 0.56 MG/DL (0.40-0.90); GLUCOSE 95 MG/DL (70-104); POTASSIUM 3.8 MMOL/L (3.5-5.1); SODIUM 138 MMOL/L (135-145); TOTAL CARBON DIOXIDE 27.9 MMOL/L (24-32); eGFR > 90 ML/MIN
[2020-11-27 10:27] VITALS: BP 102/66
[2020-11-27 15:12] VITALS: BP 115/77
--- NOTE | 2020-11-27 18:30 | NUR ---
Patient in room COVID 03. I have received report from PHOENIX and had the opportunity to ask questions and assume patient care.
[2020-11-27 19:00] VITALS: BP 120/70
[2020-11-27 23:00] VITALS: BP 108/69
--- NOTE | 2020-11-28 06:35 | NUR ---
Problems reprioritized. Patient report given, questions answered & plan of care reviewed with PHOENIX.
[2020-11-28] MEDS: enoxaparin 40mg/0.4ml syringe SUBCUT SCH ×2 (07:51→20:29)
[2020-11-28] MEDS: dexamethasone inj 4 MG in normal saline 50ml IV soln 50 ML IV SCH (07:51)
[2020-11-28] MEDS: pantoprazole 40mg Tablet.DR PO SCH (07:52)
[2020-11-28] MEDS: ALPRAZolam 0.5mg tablet PO PRN ×2 (07:52→20:06)
[2020-11-28] MEDS: docusate sod 100mg capsule PO SCH ×2 (07:52→20:00)
[2020-11-28] MEDS: venlafaxine XR 37.5mg cap (Q24H) PO SCH (07:52)
[2020-11-28] MEDS: amLODIPine 5mg tablet PO SCH (07:53)
[2020-11-28] MEDS: lactose-reduced food (Ensure Enlive) - 237ml bottle PO SCH ×2 (07:58→18:30)
[2020-11-28 08:31] VITALS: BP 113/77
[2020-11-28] MEDS: K and/or MAG REPLACEMENT MC SCH ×3 (08:33→20:00)
[2020-11-28 09:48] LABS: D-DIMER 0.26 MG/L FEU (0-0.50)
[2020-11-28 09:53] LABS: BASOPHILS % (AUTO) 0.2 % (0-1); EOSINOPHILS # (AUTO) 0.3 X10'3 (0-0.9); EOSINOPHILS % (AUTO) 1.7 % (0-6); HEMATOCRIT 38.2 % (35.0-45.0); HEMOGLOBIN 12.4 g/dl (12.0-16.0); LYMPHOCYTES # (AUTO) 1.6 X10'3 (1.1-4.8); LYMPHOCYTES % (AUTO) 9.1 % (21-51); MEAN CORPUSCULAR HGB CONC 32.4 g/dL (33.0-36.5); MEAN CORPUSCULAR VOLUME 86.5 FL (78-98); MEAN PLATELET VOLUME 7.2 FL (7.4-10.4); MONOCYTES # (AUTO) 1.1 X10'3 (0-0.9); MONOCYTES % (AUTO) 6.1 % (2-12); NEUTROPHILS # (AUTO) 14.9 X10'3 (1.8-7.7); NEUTROPHILS % (AUTO) 82.9 % (42-75); PLATELET COUNT 568 X10'3 (140-440); RED BLOOD COUNT 4.42 X10'6 (4.20-5.60); RED CELL DISTRIBUTION WIDTH 13.5 % (11.5-14.5)
[2020-11-28 10:01] LABS: ALANINE AMINOTRANSFERASE 24 U/L (12-78); ALBUMIN 2.2 G/DL (3.4-5.0); ALBUMIN/GLOBULIN RATIO 0.5 (1.1-1.5); ALKALINE PHOSPHATASE 181 IU/L (46-116); ANION GAP 9 (8-16); ASPARTATE AMINO TRANSFERASE 18 U/L (10-37); BILIRUBIN,TOTAL 0.3 MG/DL (0.1-1.0); BLOOD UREA NITROGEN 14 MG/DL (7-18); BUN/CREATININE RATIO 21.9 (6.6-38.0); CALCIUM 8.4 MG/DL (8.5-10.1); CHLORIDE 103 MMOL/L (99-107); CREATININE 0.64 MG/DL (0.40-0.90); GLUCOSE 135 MG/DL (70-104); POTASSIUM 3.2 MMOL/L (3.5-5.1); SODIUM 139 MMOL/L (135-145); TOTAL CARBON DIOXIDE 26.6 MMOL/L (24-32); TOTAL PROTEIN 6.5 G/DL (6.4-8.2); eGFR > 90 ML/MIN
[2020-11-28 12:50] VITALS: BP 116/71
[2020-11-28] MEDS ORDERED: potassium Cl 40MEQ/1/2NS 520ml 520 ML IV PRN (17:10)
[2020-11-28] MEDS ORDERED: potassium Cl 20 mEq SR tablet PO PRN (17:10)
[2020-11-28] MEDS ORDERED: magnesium Cl slow-release 64mg tablet PO PRN (17:10)
[2020-11-28] MEDS ORDERED: magnesium 4gm in 100ml NS 100 ML IV PRN (17:10)
[2020-11-28 18:01] VITALS: BP 121/75
--- NOTE | 2020-11-28 18:30 | NUR ---
Patient in room COVID 03. I have received report from PHOENIX and had the opportunity to ask questions and assume patient care.
[2020-11-28 19:00] VITALS: BP 118/71
[2020-11-28 23:00] VITALS: BP 123/84
--- NOTE | 2020-11-29 | NUR ---
PT OXYGEN LEVELS REMAINING 87-90% ON 6L NC. PT DESATS EASILY WITH ANY MOBILITY. PT PLACED IN 10L SALTER. OXYGEN SATURATIONS 93%
--- NOTE | 2020-11-29 06:40 | NUR ---
Problems reprioritized. Patient report given, questions answered & plan of care reviewed with PHOENIX.
[2020-11-29] MEDS: K and/or MAG REPLACEMENT MC SCH ×4 (07:18→20:00)
[2020-11-29 07:22] VITALS: BP 120/78
[2020-11-29] MEDS: pantoprazole 40mg Tablet.DR PO SCH (07:29)
[2020-11-29] MEDS: docusate sod 100mg capsule PO SCH ×2 (07:29→20:00)
[2020-11-29] MEDS: dexamethasone inj 4 MG in normal saline 50ml IV soln 50 ML IV SCH (07:29)
[2020-11-29] MEDS: ALPRAZolam 0.5mg tablet PO PRN ×2 (07:29→19:14)
[2020-11-29] MEDS: venlafaxine XR 37.5mg cap (Q24H) PO SCH (07:30)
[2020-11-29] MEDS: enoxaparin 40mg/0.4ml syringe SUBCUT SCH ×2 (07:30→21:15)
[2020-11-29] MEDS: amLODIPine 5mg tablet PO SCH (07:30)
[2020-11-29] MEDS: lactose-reduced food (Ensure Enlive) - 237ml bottle PO SCH ×2 (07:30→18:00)
[2020-11-29 08:12] LABS: D-DIMER 0.29 MG/L FEU (0-0.50)
[2020-11-29 08:19] LABS: BASOPHILS # (AUTO) 0.1 X10'3 (0-0.2); BASOPHILS % (AUTO) 0.4 % (0-1); EOSINOPHILS # (AUTO) 0.3 X10'3 (0-0.9); EOSINOPHILS % (AUTO) 1.4 % (0-6); HEMATOCRIT 36.6 % (35.0-45.0); HEMOGLOBIN 12.2 g/dl (12.0-16.0); LYMPHOCYTES # (AUTO) 2.7 X10'3 (1.1-4.8); LYMPHOCYTES % (AUTO) 14.4 % (21-51); MEAN CORPUSCULAR HEMOGLOBIN 28.4 PG (27.0-31.0); MEAN CORPUSCULAR HGB CONC 33.3 g/dL (33.0-36.5); MEAN CORPUSCULAR VOLUME 85.2 FL (78-98); MEAN PLATELET VOLUME 6.9 FL (7.4-10.4); MONOCYTES # (AUTO) 1.2 X10'3 (0-0.9); MONOCYTES % (AUTO) 6.3 % (2-12); NEUTROPHILS # (AUTO) 14.4 X10'3 (1.8-7.7); NEUTROPHILS % (AUTO) 77.5 % (42-75); PLATELET COUNT 544 X10'3 (140-440); RED BLOOD COUNT 4.29 X10'6 (4.20-5.60); RED CELL DISTRIBUTION WIDTH 13.6 % (11.5-14.5); WHITE BLOOD COUNT 18.6 X10'3 (4.5-11.0)
[2020-11-29 08:36] LABS: ALANINE AMINOTRANSFERASE 54 U/L (12-78); ALBUMIN 2.2 G/DL (3.4-5.0); ALBUMIN/GLOBULIN RATIO 0.5 (1.1-1.5); ALKALINE PHOSPHATASE 213 IU/L (46-116); ANION GAP 7 (8-16); ASPARTATE AMINO TRANSFERASE 37 U/L (10-37); BILIRUBIN,TOTAL 0.3 MG/DL (0.1-1.0); BLOOD UREA NITROGEN 11 MG/DL (7-18); C-REACTIVE PROTEIN 1.01 MG/DL (0.0-0.5); CALCIUM 8.4 MG/DL (8.5-10.1); CHLORIDE 102 MMOL/L (99-107); CREATININE 0.55 MG/DL (0.40-0.90); GLUCOSE 83 MG/DL (70-104); POTASSIUM 3.6 MMOL/L (3.5-5.1); SODIUM 140 MMOL/L (135-145); TOTAL CARBON DIOXIDE 31.4 MMOL/L (24-32); TOTAL PROTEIN 6.5 G/DL (6.4-8.2); eGFR > 90 ML/MIN
[2020-11-29 09:11] LABS: PLATELET ESTIMATE INCREASED; TOTAL CELLS COUNTED 100
[2020-11-29 11:00] VITALS: BP 114/68
[2020-11-29] MEDS: furosemide 20 MG/2 ML vial IV SCH (16:15)
[2020-11-29 17:44] VITALS: BP 135/74
[2020-11-29 19:00] VITALS: BP 113/70
[2020-11-29] MEDS: acetaminophen 325mg tablet PO PRN (19:15)
[2020-11-29 23:00] VITALS: BP 107/69
[2020-11-30 02:00] VITALS: BP 108/68
--- NOTE | 2020-11-30 06:29 | NUR ---
Patient in room COVID 03. I have received report from LUIS ARREGUIN and had the opportunity to ask questions and assume patient care.
[2020-11-30 06:57] VITALS: BP 104/64
[2020-11-30] MEDS: venlafaxine XR 37.5mg cap (Q24H) PO SCH (07:53)
[2020-11-30] MEDS: dexamethasone inj 4 MG in normal saline 50ml IV soln 50 ML IV SCH (07:53)
[2020-11-30] MEDS: amLODIPine 5mg tablet PO SCH (07:53)
[2020-11-30] MEDS: furosemide 20 MG/2 ML vial IV SCH (07:53)
[2020-11-30] MEDS: docusate sod 100mg capsule PO SCH ×3 (07:53→20:11)
[2020-11-30] MEDS: enoxaparin 40mg/0.4ml syringe SUBCUT SCH ×2 (07:54→20:10)
[2020-11-30] MEDS: pantoprazole 40mg Tablet.DR PO SCH (07:55)
[2020-11-30] MEDS: K and/or MAG REPLACEMENT MC SCH ×4 (08:00→20:00)
[2020-11-30] MEDS: ALPRAZolam 0.5mg tablet PO PRN ×2 (08:04→20:20)
[2020-11-30] MEDS: lactose-reduced food (Ensure Enlive) - 237ml bottle PO SCH ×2 (08:07→17:30)
[2020-11-30 09:46] LABS: D-DIMER 0.35 MG/L FEU (0-0.50)
[2020-11-30 09:52] LABS: BASOPHILS # (AUTO) 0.1 X10'3 (0-0.2); BASOPHILS % (AUTO) 0.5 % (0-1); EOSINOPHILS # (AUTO) 0.3 X10'3 (0-0.9); EOSINOPHILS % (AUTO) 1.4 % (0-6); HEMATOCRIT 41.3 % (35.0-45.0); HEMOGLOBIN 13.5 g/dl (12.0-16.0); LYMPHOCYTES # (AUTO) 2.6 X10'3 (1.1-4.8); MEAN CORPUSCULAR HEMOGLOBIN 28.3 PG (27.0-31.0); MEAN CORPUSCULAR HGB CONC 32.8 g/dL (33.0-36.5); MEAN CORPUSCULAR VOLUME 86.4 FL (78-98); MEAN PLATELET VOLUME 7.5 FL (7.4-10.4); MONOCYTES % (AUTO) 5.1 % (2-12); NEUTROPHILS # (AUTO) 15.9 X10'3 (1.8-7.7); PLATELET COUNT 646 X10'3 (140-440); RED BLOOD COUNT 4.78 X10'6 (4.20-5.60); RED CELL DISTRIBUTION WIDTH 13.9 % (11.5-14.5); WHITE BLOOD COUNT 19.9 X10'3 (4.5-11.0)
[2020-11-30 09:53] LABS: ALANINE AMINOTRANSFERASE 74 U/L (12-78); ALBUMIN 2.7 G/DL (3.4-5.0); ALBUMIN/GLOBULIN RATIO 0.5 (1.1-1.5); ALKALINE PHOSPHATASE 251 IU/L (46-116); ANION GAP 10 (8-16); ASPARTATE AMINO TRANSFERASE 31 U/L (10-37); BILIRUBIN,TOTAL 0.3 MG/DL (0.1-1.0); BLOOD UREA NITROGEN 12 MG/DL (7-18); BUN/CREATININE RATIO 14.6 (6.6-38.0); C-REACTIVE PROTEIN 1.21 MG/DL (0.0-0.5); CALCIUM 9.2 MG/DL (8.5-10.1); CHLORIDE 96 MMOL/L (99-107); CREATININE 0.82 MG/DL (0.40-0.90); GLUCOSE 108 MG/DL (70-104); POTASSIUM 3.1 MMOL/L (3.5-5.1); SODIUM 139 MMOL/L (135-145); TOTAL PROTEIN 7.8 G/DL (6.4-8.2); eGFR 71 ML/MIN
[2020-11-30 11:40] VITALS: BP 103/58
--- NOTE | 2020-11-30 12:06 | NUR ---
11/30: Pt PO 100% ensure enlive BIDBD w/ consistent 50% avg regular diet improved to 100% dinner last night and breakfast this AM. Currently meeting needs. LBM 11/29. Will continue to monitor. Recommend: 1. Continue regular diet; encourage PO 2. Ensure Enlive BIDBD 3. Routine bowel care 4. Weekly scaled weights Addendum: 11/30/20 at [address] Amended: Links added.
[2020-11-30] MEDS: potassium Cl 20 mEq SR tablet PO PRN ×2 (12:32→16:34)
[2020-11-30 14:00] VITALS: BP 115/74
--- NOTE | 2020-11-30 19:19 | NUR ---
Problems reprioritized. Patient report given, questions answered & plan of care reviewed with Constantin Garcia.
[2020-11-30 22:00] VITALS: BP 111/72
[2020-12-01 02:00] VITALS: BP 109/69
[2020-12-01 06:00] VITALS: BP 117/67
--- NOTE | 2020-12-01 06:59 | NUR ---
Patient in room ORTHO 4014A. I have received report from LUIS Gallagher and had the opportunity to ask questions and assume patient care.
[2020-12-01] MEDS: lactose-reduced food (Ensure Enlive) - 237ml bottle PO SCH ×2 (07:30→17:30)
[2020-12-01 07:58] LABS: BASOPHILS # (AUTO) 0.1 X10'3 (0-0.2); BASOPHILS % (AUTO) 0.5 % (0-1); EOSINOPHILS # (AUTO) 0.3 X10'3 (0-0.9); EOSINOPHILS % (AUTO) 1.7 % (0-6); HEMATOCRIT 35.9 % (35.0-45.0); LYMPHOCYTES # (AUTO) 2.9 X10'3 (1.1-4.8); LYMPHOCYTES % (AUTO) 15.3 % (21-51); MEAN CORPUSCULAR HEMOGLOBIN 28.5 PG (27.0-31.0); MEAN CORPUSCULAR HGB CONC 33.4 g/dL (33.0-36.5); MEAN CORPUSCULAR VOLUME 85.4 FL (78-98); MEAN PLATELET VOLUME 7.2 FL (7.4-10.4); MONOCYTES # (AUTO) 1.3 X10'3 (0-0.9); MONOCYTES % (AUTO) 6.5 % (2-12); NEUTROPHILS # (AUTO) 14.5 X10'3 (1.8-7.7); PLATELET COUNT 540 X10'3 (140-440); RED CELL DISTRIBUTION WIDTH 13.5 % (11.5-14.5); WHITE BLOOD COUNT 19.2 X10'3 (4.5-11.0)
[2020-12-01] MEDS: K and/or MAG REPLACEMENT MC SCH ×4 (08:00→20:00)
[2020-12-01 08:15] LABS: ALANINE AMINOTRANSFERASE 65 U/L (12-78); ALBUMIN 2.5 G/DL (3.4-5.0); ALBUMIN/GLOBULIN RATIO 0.6 (1.1-1.5); ALKALINE PHOSPHATASE 220 IU/L (46-116); ANION GAP 7 (8-16); ASPARTATE AMINO TRANSFERASE 25 U/L (10-37); BILIRUBIN,TOTAL 0.2 MG/DL (0.1-1.0); BLOOD UREA NITROGEN 13 MG/DL (7-18); C-REACTIVE PROTEIN 0.99 MG/DL (0.0-0.5); CALCIUM 9.1 MG/DL (8.5-10.1); CHLORIDE 100 MMOL/L (99-107); CREATININE 0.59 MG/DL (0.40-0.90); GLUCOSE 73 MG/DL (70-104); SODIUM 139 MMOL/L (135-145); TOTAL CARBON DIOXIDE 31.7 MMOL/L (24-32); eGFR > 90 ML/MIN
[2020-12-01 08:31] LABS: D-DIMER 0.36 MG/L FEU (0-0.50)
[2020-12-01] MEDS: docusate sod 100mg capsule PO SCH ×2 (09:50→21:33)
[2020-12-01] MEDS: amLODIPine 5mg tablet PO SCH (09:51)
[2020-12-01] MEDS: pantoprazole 40mg Tablet.DR PO SCH (09:51)
[2020-12-01] MEDS: furosemide 20 MG/2 ML vial IV SCH (09:52)
[2020-12-01] MEDS: enoxaparin 40mg/0.4ml syringe SUBCUT SCH ×2 (09:58→21:31)
[2020-12-01 10:00] VITALS: BP 115/74
[2020-12-01] MEDS: ALPRAZolam 0.5mg tablet PO PRN ×2 (10:06→21:30)
[2020-12-01] MEDS: venlafaxine XR 37.5mg cap (Q24H) PO SCH (10:07)
[2020-12-01] MEDS: dexamethasone inj 4 MG in normal saline 50ml IV soln 50 ML IV SCH (10:16)
[2020-12-01 14:00] VITALS: BP 107/72
[2020-12-01 18:00] VITALS: BP 110/72
--- NOTE | 2020-12-01 18:30 | NUR ---
Assumed care report received from Eli SMITH.
[2020-12-01 22:00] VITALS: BP 120/79
--- NOTE | 2020-12-01 22:00 | NUR ---
declined need for pain meds at this time.
[2020-12-02 02:00] VITALS: BP 117/70
[2020-12-02 06:00] VITALS: BP 123/86
--- NOTE | 2020-12-02 06:36 | NUR ---
Patient in room ORTHO 4014. I have received report from LUIS CAMPBELL, and had the opportunity to ask questions and assume patient care.
--- NOTE | 2020-12-02 06:43 | NUR ---
Report to Yoselin SMITH.
[2020-12-02] MEDS: lactose-reduced food (Ensure Enlive) - 237ml bottle PO SCH ×2 (07:30→18:00)
[2020-12-02 07:39] LABS: BASOPHILS # (AUTO) 0.2 X10'3 (0-0.2); BASOPHILS % (AUTO) 1.1 % (0-1); EOSINOPHILS # (AUTO) 0.2 X10'3 (0-0.9); EOSINOPHILS % (AUTO) 1.4 % (0-6); HEMATOCRIT 37.4 % (35.0-45.0); HEMOGLOBIN 12.3 g/dl (12.0-16.0); LYMPHOCYTES # (AUTO) 2.3 X10'3 (1.1-4.8); LYMPHOCYTES % (AUTO) 13.1 % (21-51); MEAN CORPUSCULAR HEMOGLOBIN 28.5 PG (27.0-31.0); MEAN CORPUSCULAR VOLUME 86.1 FL (78-98); MEAN PLATELET VOLUME 7.1 FL (7.4-10.4); MONOCYTES # (AUTO) 1.1 X10'3 (0-0.9); NEUTROPHILS # (AUTO) 13.8 X10'3 (1.8-7.7); NEUTROPHILS % (AUTO) 78.4 % (42-75); PLATELET COUNT 490 X10'3 (140-440); RED BLOOD COUNT 4.34 X10'6 (4.20-5.60); RED CELL DISTRIBUTION WIDTH 13.8 % (11.5-14.5); WHITE BLOOD COUNT 17.5 X10'3 (4.5-11.0)
[2020-12-02 07:59] LABS: ALANINE AMINOTRANSFERASE 66 U/L (12-78); ALBUMIN 2.5 G/DL (3.4-5.0); ALBUMIN/GLOBULIN RATIO 0.5 (1.1-1.5); ALKALINE PHOSPHATASE 215 IU/L (46-116); ANION GAP 6 (8-16); ASPARTATE AMINO TRANSFERASE 20 U/L (10-37); BILIRUBIN,TOTAL 0.3 MG/DL (0.1-1.0); BLOOD UREA NITROGEN 15 MG/DL (7-18); BUN/CREATININE RATIO 26.3 (6.6-38.0); CALCIUM 9.1 MG/DL (8.5-10.1); CHLORIDE 100 MMOL/L (99-107); CREATININE 0.57 MG/DL (0.40-0.90); GLUCOSE 87 MG/DL (70-104); POTASSIUM 3.7 MMOL/L (3.5-5.1); SODIUM 140 MMOL/L (135-145); TOTAL CARBON DIOXIDE 34.4 MMOL/L (24-32); TOTAL PROTEIN 7.1 G/DL (6.4-8.2); eGFR > 90 ML/MIN
[2020-12-02] MEDS: K and/or MAG REPLACEMENT MC SCH ×4 (08:00→20:00)
[2020-12-02] MEDS: dexamethasone 1mg tablet PO SCH (09:49)
[2020-12-02] MEDS: amLODIPine 5mg tablet PO SCH (09:52)
[2020-12-02] MEDS: venlafaxine XR 37.5mg cap (Q24H) PO SCH (09:52)
[2020-12-02] MEDS: enoxaparin 40mg/0.4ml syringe SUBCUT SCH ×2 (09:54→21:23)
[2020-12-02] MEDS: pantoprazole 40mg Tablet.DR PO SCH (09:54)
[2020-12-02] MEDS: docusate sod 100mg capsule PO SCH ×2 (09:54→21:23)
[2020-12-02 10:00] VITALS: BP 111/70
[2020-12-02] MEDS: ALPRAZolam 0.5mg tablet PO PRN ×2 (11:03→21:22)
--- NOTE | 2020-12-02 12:55 | NUR ---
Dr Vallejo notified of patient desating and going onto non rebreather mask order for stat ABG and give anti anxiety medication.
[2020-12-02 13:39] LABS: ABG BASE EXCESS 8.3 mmol/L (-2.0-2.0); ABG HCO3 32.8 mmol/L (22.0-26.0); ABG OXYGEN SATURATION 94.3 % (94-97); ABG PCO2 (T) 45.3 mmHg (32.0-45.0); ABG PO2 (T) 71.5 mmHg (75.0-100.0); ALLEN'S TEST POSITIVE; FCOHb 0.5 % (0.0-3.9); FLOW 15 L/min; FMetHb 0.3 % (0.0-1.5); FO2Hb 93.5 % (94-97); PATIENT TEMPERATURE 37.1; TOTAL HEMOGLOBIN 13.2 G/dl (12.0-16.0)
[2020-12-02 14:00] VITALS: BP 109/68
[2020-12-02 18:00] VITALS: BP 109/72
--- NOTE | 2020-12-02 18:37 | NUR ---
Problems reprioritized. Patient report given, questions answered & plan of care reviewed with LUIS BRISCOE.
--- NOTE | 2020-12-02 21:00 | NUR ---
pt on NRB at 10L. educated on effectiveness of NRB vs. HF nasal canula and need for titration. verbalized understanding. changed to 12L HF and sats stayed 90-91%. will continue to monitor.
[2020-12-02 22:00] VITALS: BP 105/66
[2020-12-03 02:00] VITALS: BP 116/68
[2020-12-03 06:00] VITALS: BP 125/67
--- NOTE | 2020-12-03 06:30 | NUR ---
Patient in room ORTHO 4014. I have received report from LUIS Rebollar and had the opportunity to ask questions and assume patient care.
--- NOTE | 2020-12-03 06:41 | NUR ---
reported to days. noted pt oxygen demand decreasing to 7L HF while sleeping on side. anticipate discharge soon.
[2020-12-03] MEDS: lactose-reduced food (Ensure Enlive) - 237ml bottle PO SCH ×2 (08:03→17:34)
[2020-12-03] MEDS: K and/or MAG REPLACEMENT MC SCH ×2 (09:00→20:00)
[2020-12-03 10:00] VITALS: BP 108/72
[2020-12-03] MEDS: docusate sod 100mg capsule PO SCH ×2 (10:00→20:53)
[2020-12-03] MEDS: pantoprazole 40mg Tablet.DR PO SCH (10:00)
[2020-12-03] MEDS: venlafaxine XR 37.5mg cap (Q24H) PO SCH (10:00)
[2020-12-03] MEDS: enoxaparin 40mg/0.4ml syringe SUBCUT SCH ×2 (10:01→20:55)
[2020-12-03] MEDS: dexamethasone 1mg tablet PO SCH (10:01)
[2020-12-03] MEDS: amLODIPine 5mg tablet PO SCH (10:05)
[2020-12-03] MEDS: ALPRAZolam 0.5mg tablet PO PRN ×2 (10:07→21:00)
[2020-12-03 11:54] LABS: BASOPHILS # (AUTO) 0.1 X10'3 (0-0.2); BASOPHILS % (AUTO) 0.6 % (0-1); EOSINOPHILS # (AUTO) 0.4 X10'3 (0-0.9); EOSINOPHILS % (AUTO) 2.1 % (0-6); HEMATOCRIT 38.7 % (35.0-45.0); HEMOGLOBIN 12.6 g/dl (12.0-16.0); LYMPHOCYTES # (AUTO) 1.8 X10'3 (1.1-4.8); LYMPHOCYTES % (AUTO) 9.6 % (21-51); MEAN CORPUSCULAR HEMOGLOBIN 28.1 PG (27.0-31.0); MEAN CORPUSCULAR HGB CONC 32.6 g/dL (33.0-36.5); MEAN CORPUSCULAR VOLUME 86.4 FL (78-98); MEAN PLATELET VOLUME 6.8 FL (7.4-10.4); MONOCYTES # (AUTO) 0.9 X10'3 (0-0.9); MONOCYTES % (AUTO) 4.8 % (2-12); NEUTROPHILS # (AUTO) 15.5 X10'3 (1.8-7.7); NEUTROPHILS % (AUTO) 82.9 % (42-75); PLATELET COUNT 452 X10'3 (140-440); RED BLOOD COUNT 4.48 X10'6 (4.20-5.60); RED CELL DISTRIBUTION WIDTH 13.7 % (11.5-14.5); WHITE BLOOD COUNT 18.7 X10'3 (4.5-11.0)
[2020-12-03 12:07] LABS: D-DIMER 0.68 MG/L FEU (0-0.50)
[2020-12-03 12:13] LABS: ALANINE AMINOTRANSFERASE 63 U/L (12-78); ALBUMIN 2.4 G/DL (3.4-5.0); ALBUMIN/GLOBULIN RATIO 0.5 (1.1-1.5); ALKALINE PHOSPHATASE 209 IU/L (46-116); ANION GAP 7 (8-16); ASPARTATE AMINO TRANSFERASE 24 U/L (10-37); BILIRUBIN,TOTAL 0.2 MG/DL (0.1-1.0); BLOOD UREA NITROGEN 16 MG/DL (7-18); BUN/CREATININE RATIO 28.1 (6.6-38.0); CALCIUM 8.9 MG/DL (8.5-10.1); CHLORIDE 101 MMOL/L (99-107); CREATININE 0.57 MG/DL (0.40-0.90); GLUCOSE 150 MG/DL (70-104); POTASSIUM 3.6 MMOL/L (3.5-5.1); SODIUM 141 MMOL/L (135-145); TOTAL CARBON DIOXIDE 33.4 MMOL/L (24-32); eGFR > 90 ML/MIN
[2020-12-03 14:00] VITALS: BP 114/72
[2020-12-03 18:00] VITALS: BP 118/83
--- NOTE | 2020-12-03 18:25 | NUR ---
Patient in room ORTHO 4014. I have received report from LUIS Olivares and had the opportunity to ask questions and assume patient care.
--- NOTE | 2020-12-03 18:30 | NUR ---
Patient in room ORTHO 4014. I have received report from LUIS Nur and had the opportunity to ask questions and assume patient care.
[2020-12-03 22:00] VITALS: BP 112/69
[2020-12-04 02:00] VITALS: BP 120/83
[2020-12-04 06:00] VITALS: BP 126/75
--- NOTE | 2020-12-04 06:40 | NUR ---
Problems reprioritized. Patient report given, questions answered & plan of care reviewed with LUIS Mack.
--- NOTE | 2020-12-04 06:44 | NUR ---
Patient in room ORTHO 4014. I have received report and had the opportunity to ask questions and assume patient care.
[2020-12-04] MEDS: lactose-reduced food (Ensure Enlive) - 237ml bottle PO SCH ×2 (07:30→17:30)
[2020-12-04] MEDS: amLODIPine 5mg tablet PO SCH (07:38)
[2020-12-04] MEDS: venlafaxine XR 37.5mg cap (Q24H) PO SCH (07:38)
[2020-12-04] MEDS: docusate sod 100mg capsule PO SCH ×2 (07:38→19:32)
[2020-12-04] MEDS: dexamethasone 1mg tablet PO SCH (07:38)
[2020-12-04] MEDS: pantoprazole 40mg Tablet.DR PO SCH (07:38)
[2020-12-04] MEDS: enoxaparin 40mg/0.4ml syringe SUBCUT SCH ×2 (07:39→19:32)
[2020-12-04] MEDS: ALPRAZolam 0.5mg tablet PO PRN ×2 (07:43→19:32)
[2020-12-04 07:58] LABS: BASOPHILS # (AUTO) 0.1 X10'3 (0-0.2); BASOPHILS % (AUTO) 0.6 % (0-1); EOSINOPHILS # (AUTO) 0.5 X10'3 (0-0.9); EOSINOPHILS % (AUTO) 2.8 % (0-6); HEMATOCRIT 38.5 % (35.0-45.0); HEMOGLOBIN 12.6 g/dl (12.0-16.0); LYMPHOCYTES # (AUTO) 2.9 X10'3 (1.1-4.8); LYMPHOCYTES % (AUTO) 15.2 % (21-51); MEAN CORPUSCULAR HEMOGLOBIN 28.1 PG (27.0-31.0); MEAN CORPUSCULAR HGB CONC 32.7 g/dL (33.0-36.5); MEAN CORPUSCULAR VOLUME 85.9 FL (78-98); MONOCYTES # (AUTO) 0.9 X10'3 (0-0.9); MONOCYTES % (AUTO) 4.7 % (2-12); NEUTROPHILS # (AUTO) 14.6 X10'3 (1.8-7.7); NEUTROPHILS % (AUTO) 76.7 % (42-75); PLATELET COUNT 491 X10'3 (140-440); RED BLOOD COUNT 4.49 X10'6 (4.20-5.60); WHITE BLOOD COUNT 19.1 X10'3 (4.5-11.0)
[2020-12-04 08:06] LABS: D-DIMER 0.71 MG/L FEU (0-0.50)
[2020-12-04 08:08] LABS: ALANINE AMINOTRANSFERASE 62 U/L (12-78); ALBUMIN 2.5 G/DL (3.4-5.0); ALBUMIN/GLOBULIN RATIO 0.5 (1.1-1.5); ALKALINE PHOSPHATASE 203 IU/L (46-116); ANION GAP 6 (8-16); ASPARTATE AMINO TRANSFERASE 20 U/L (10-37); BILIRUBIN,TOTAL 0.3 MG/DL (0.1-1.0); BLOOD UREA NITROGEN 13 MG/DL (7-18); BUN/CREATININE RATIO 22.4 (6.6-38.0); C-REACTIVE PROTEIN 1.78 MG/DL (0.0-0.5); CALCIUM 9.2 MG/DL (8.5-10.1); CHLORIDE 101 MMOL/L (99-107); CREATININE 0.58 MG/DL (0.40-0.90); GLUCOSE 86 MG/DL (70-104); POTASSIUM 3.9 MMOL/L (3.5-5.1); SODIUM 139 MMOL/L (135-145); TOTAL CARBON DIOXIDE 32.4 MMOL/L (24-32); TOTAL PROTEIN 7.2 G/DL (6.4-8.2); eGFR > 90 ML/MIN
[2020-12-04 10:00] VITALS: BP 111/72
[2020-12-04 14:00] VITALS: BP 121/67
[2020-12-04 18:00] VITALS: BP 111/78
--- NOTE | 2020-12-04 18:19 | NUR ---
Problems reprioritized. Patient report given, questions answered & plan of care reviewed with LUIS Sandhu.
--- NOTE | 2020-12-04 18:45 | NUR ---
Patient in room ORTHO 4014. I have received report from Martina SMITH and had the opportunity to ask questions and assume patient care.
[2020-12-04] MEDS: K and/or MAG REPLACEMENT MC SCH (20:00)
[2020-12-04 22:00] VITALS: BP_SYST 111; BP_SYST 133; BP_DIAS 78; BP_DIAS 79
[2020-12-05 02:00] VITALS: BP 116/84
[2020-12-05 06:00] VITALS: BP 125/81
--- NOTE | 2020-12-05 06:17 | NUR ---
Problems reprioritized. Patient report given, questions answered & plan of care reviewed with Denisha SMITH.
--- NOTE | 2020-12-05 06:44 | NUR ---
received report from jin meyer
[2020-12-05 06:52] LABS: BASOPHILS # (AUTO) 0.2 X10'3 (0-0.2); BASOPHILS % (AUTO) 1.1 % (0-1); EOSINOPHILS # (AUTO) 0.7 X10'3 (0-0.9); EOSINOPHILS % (AUTO) 4.1 % (0-6); HEMATOCRIT 39.2 % (35.0-45.0); HEMOGLOBIN 13.1 g/dl (12.0-16.0); LYMPHOCYTES # (AUTO) 2.7 X10'3 (1.1-4.8); LYMPHOCYTES % (AUTO) 16.5 % (21-51); MEAN CORPUSCULAR HEMOGLOBIN 28.7 PG (27.0-31.0); MEAN CORPUSCULAR HGB CONC 33.4 g/dL (33.0-36.5); MEAN CORPUSCULAR VOLUME 85.9 FL (78-98); MONOCYTES # (AUTO) 0.8 X10'3 (0-0.9); NEUTROPHILS # (AUTO) 12.1 X10'3 (1.8-7.7); NEUTROPHILS % (AUTO) 73.3 % (42-75); PLATELET COUNT 405 X10'3 (140-440); RED BLOOD COUNT 4.56 X10'6 (4.20-5.60); RED CELL DISTRIBUTION WIDTH 14.4 % (11.5-14.5); WHITE BLOOD COUNT 16.4 X10'3 (4.5-11.0)
[2020-12-05 07:00] LABS: D-DIMER 0.68 MG/L FEU (0-0.50)
[2020-12-05 07:09] LABS: ALANINE AMINOTRANSFERASE 46 U/L (12-78); ALBUMIN 2.5 G/DL (3.4-5.0); ALBUMIN/GLOBULIN RATIO 0.5 (1.1-1.5); ALKALINE PHOSPHATASE 188 IU/L (46-116); ANION GAP 6 (8-16); ASPARTATE AMINO TRANSFERASE 15 U/L (10-37); BILIRUBIN,TOTAL 0.4 MG/DL (0.1-1.0); BLOOD UREA NITROGEN 15 MG/DL (7-18); BUN/CREATININE RATIO 19.7 (6.6-38.0); C-REACTIVE PROTEIN 2.54 MG/DL (0.0-0.5); CALCIUM 9.8 MG/DL (8.5-10.1); CHLORIDE 104 MMOL/L (99-107); CREATININE 0.76 MG/DL (0.40-0.90); GLUCOSE 93 MG/DL (70-104); POTASSIUM 5.3 MMOL/L (3.5-5.1); SODIUM 143 MMOL/L (135-145); TOTAL CARBON DIOXIDE 32.6 MMOL/L (24-32); TOTAL PROTEIN 7.5 G/DL (6.4-8.2); eGFR 77 ML/MIN
[2020-12-05] MEDS: K and/or MAG REPLACEMENT MC SCH (08:00)
[2020-12-05] MEDS: docusate sod 100mg capsule PO SCH ×2 (08:35→20:21)
[2020-12-05] MEDS: venlafaxine XR 37.5mg cap (Q24H) PO SCH (08:35)
[2020-12-05] MEDS: enoxaparin 40mg/0.4ml syringe SUBCUT SCH ×2 (08:36→20:21)
[2020-12-05] MEDS: pantoprazole 40mg Tablet.DR PO SCH (08:36)
[2020-12-05] MEDS: dexamethasone 1mg tablet PO SCH (08:36)
[2020-12-05] MEDS: amLODIPine 5mg tablet PO SCH (08:36)
[2020-12-05] MEDS: lactose-reduced food (Ensure Enlive) - 237ml bottle PO SCH ×2 (08:41→17:38)
[2020-12-05] MEDS: ALPRAZolam 0.5mg tablet PO PRN ×2 (08:43→20:21)
[2020-12-05 10:00] VITALS: BP 99/61
[2020-12-05 18:00] VITALS: BP 124/71
--- NOTE | 2020-12-05 18:42 | NUR ---
gave report to mikie jane rn
[2020-12-05 22:00] VITALS: BP 127/79
[2020-12-06 02:00] VITALS: BP 112/78
[2020-12-06 06:00] VITALS: BP 113/70
--- NOTE | 2020-12-06 06:37 | NUR ---
Problems reprioritized. Patient report given, questions answered & plan of care reviewed with LUIS Benitez.
--- NOTE | 2020-12-06 06:55 | NUR ---
Patient in room ORTHO 4014A. I have received report from LUIS DESOUZA and had the opportunity to ask questions and assume patient care.
[2020-12-06] MEDS: lactose-reduced food (Ensure Enlive) - 237ml bottle PO SCH ×2 (07:30→18:00)
[2020-12-06 07:31] LABS: BASOPHILS # (AUTO) 0.1 X10'3 (0-0.2); BASOPHILS % (AUTO) 0.7 % (0-1); EOSINOPHILS # (AUTO) 0.8 X10'3 (0-0.9); EOSINOPHILS % (AUTO) 4.3 % (0-6); HEMATOCRIT 37.2 % (35.0-45.0); HEMOGLOBIN 12.3 g/dl (12.0-16.0); LYMPHOCYTES % (AUTO) 11.4 % (21-51); MEAN CORPUSCULAR HEMOGLOBIN 28.2 PG (27.0-31.0); MEAN CORPUSCULAR VOLUME 85.4 FL (78-98); MEAN PLATELET VOLUME 6.9 FL (7.4-10.4); MONOCYTES # (AUTO) 0.8 X10'3 (0-0.9); MONOCYTES % (AUTO) 4.6 % (2-12); PLATELET COUNT 405 X10'3 (140-440); RED BLOOD COUNT 4.35 X10'6 (4.20-5.60); RED CELL DISTRIBUTION WIDTH 14.2 % (11.5-14.5); WHITE BLOOD COUNT 17.8 X10'3 (4.5-11.0)
[2020-12-06 07:36] LABS: D-DIMER 0.74 MG/L FEU (0-0.50)
[2020-12-06 07:42] LABS: ALANINE AMINOTRANSFERASE 35 U/L (12-78); ALBUMIN 2.4 G/DL (3.4-5.0); ALBUMIN/GLOBULIN RATIO 0.5 (1.1-1.5); ALKALINE PHOSPHATASE 175 IU/L (46-116); ANION GAP 9 (8-16); ASPARTATE AMINO TRANSFERASE 14 U/L (10-37); BILIRUBIN,TOTAL 0.5 MG/DL (0.1-1.0); BLOOD UREA NITROGEN 16 MG/DL (7-18); BUN/CREATININE RATIO 26.7 (6.6-38.0); C-REACTIVE PROTEIN 2.43 MG/DL (0.0-0.5); CALCIUM 9.2 MG/DL (8.5-10.1); CHLORIDE 100 MMOL/L (99-107); GLUCOSE 91 MG/DL (70-104); POTASSIUM 3.7 MMOL/L (3.5-5.1); SODIUM 138 MMOL/L (135-145); TOTAL CARBON DIOXIDE 29.4 MMOL/L (24-32); TOTAL PROTEIN 7.2 G/DL (6.4-8.2); eGFR > 90 ML/MIN
[2020-12-06] MEDS: docusate sod 100mg capsule PO SCH ×2 (08:00→19:45)
[2020-12-06] MEDS: pantoprazole 40mg Tablet.DR PO SCH (09:28)
[2020-12-06] MEDS: venlafaxine XR 37.5mg cap (Q24H) PO SCH (09:28)
[2020-12-06] MEDS: amLODIPine 5mg tablet PO SCH (09:28)
[2020-12-06] MEDS: dexamethasone 1mg tablet PO SCH (09:29)
[2020-12-06] MEDS: enoxaparin 40mg/0.4ml syringe SUBCUT SCH ×2 (09:29→19:39)
[2020-12-06] MEDS: ALPRAZolam 0.5mg tablet PO PRN ×2 (09:40→19:40)
[2020-12-06 10:00] VITALS: BP 113/70
[2020-12-06] MEDS: methylPREDNISolone sod succ/PF 40mg inj. IV SCH ×2 (11:54→19:36)
[2020-12-06 14:00] VITALS: BP 120/72
[2020-12-06 18:00] VITALS: BP 104/76
--- NOTE | 2020-12-06 18:24 | NUR ---
Problems reprioritized. Patient report given, questions answered & plan of care reviewed with LUIS PAYAN.
[2020-12-06 22:00] VITALS: BP 110/54
[2020-12-07 02:00] VITALS: BP 112/74
[2020-12-07 06:00] VITALS: BP 114/66
--- NOTE | 2020-12-07 06:36 | NUR ---
Patient in room ORTHO 4014A. I have received report from LUIS PAYAN and had the opportunity to ask questions and assume patient care.
[2020-12-07] MEDS: lactose-reduced food (Ensure Enlive) - 237ml bottle PO SCH ×2 (07:56→17:35)
[2020-12-07 08:32] LABS: BASOPHILS % (AUTO) 0.2 % (0-1); EOSINOPHILS % (AUTO) 0.3 % (0-6); HEMATOCRIT 36.5 % (35.0-45.0); LYMPHOCYTES # (AUTO) 1.7 X10'3 (1.1-4.8); LYMPHOCYTES % (AUTO) 10.8 % (21-51); MEAN CORPUSCULAR HEMOGLOBIN 28.4 PG (27.0-31.0); MEAN CORPUSCULAR HGB CONC 32.8 g/dL (33.0-36.5); MEAN CORPUSCULAR VOLUME 86.5 FL (78-98); MEAN PLATELET VOLUME 7.2 FL (7.4-10.4); MONOCYTES # (AUTO) 0.5 X10'3 (0-0.9); MONOCYTES % (AUTO) 3.5 % (2-12); NEUTROPHILS # (AUTO) 13.1 X10'3 (1.8-7.7); NEUTROPHILS % (AUTO) 85.2 % (42-75); PLATELET COUNT 387 X10'3 (140-440); RED BLOOD COUNT 4.22 X10'6 (4.20-5.60); RED CELL DISTRIBUTION WIDTH 14.3 % (11.5-14.5); WHITE BLOOD COUNT 15.4 X10'3 (4.5-11.0)
[2020-12-07 08:37] LABS: D-DIMER 0.29 MG/L FEU (0-0.50)
[2020-12-07 09:03] LABS: ALANINE AMINOTRANSFERASE 39 U/L (12-78); ALBUMIN 2.3 G/DL (3.4-5.0); ALBUMIN/GLOBULIN RATIO 0.5 (1.1-1.5); ALKALINE PHOSPHATASE 173 IU/L (46-116); ANION GAP 9 (8-16); ASPARTATE AMINO TRANSFERASE 21 U/L (10-37); BILIRUBIN,TOTAL 0.3 MG/DL (0.1-1.0); BLOOD UREA NITROGEN 12 MG/DL (7-18); BUN/CREATININE RATIO 23.1 (6.6-38.0); CHLORIDE 100 MMOL/L (99-107); CREATININE 0.52 MG/DL (0.40-0.90); GLUCOSE 91 MG/DL (70-104); POTASSIUM 3.7 MMOL/L (3.5-5.1); SODIUM 140 MMOL/L (135-145); TOTAL CARBON DIOXIDE 31.3 MMOL/L (24-32); TOTAL PROTEIN 7.1 G/DL (6.4-8.2); eGFR > 90 ML/MIN
[2020-12-07] MEDS: pantoprazole 40mg Tablet.DR PO SCH (09:56)
[2020-12-07] MEDS: venlafaxine XR 37.5mg cap (Q24H) PO SCH (09:57)
[2020-12-07] MEDS: docusate sod 100mg capsule PO SCH ×2 (09:57→20:00)
[2020-12-07] MEDS: amLODIPine 5mg tablet PO SCH (09:58)
[2020-12-07 10:00] VITALS: BP 139/76
[2020-12-07] MEDS: enoxaparin 40mg/0.4ml syringe SUBCUT SCH ×2 (10:02→20:14)
[2020-12-07] MEDS: methylPREDNISolone sod succ/PF 40mg inj. IV SCH ×2 (10:03→20:11)
[2020-12-07] MEDS: ALPRAZolam 0.5mg tablet PO PRN ×2 (10:18→20:11)
--- NOTE | 2020-12-07 11:41 | NUR ---
F/u 12/07: Pt PO meals and ONS declining past two days 25-50% meals and 0% ONS last night partially meeting needs. Noted pt oxygen requirements increased per DO note. ABHAY d/w RN who reports pt PO 100% ensure enlive and 50-75% breakfast this AM w/ encouragement but pt stating lower appetite at this time. LBM 12/05 receiving routine colace. Will continue to monitor for further PO trends and protein/kcal needs this admit. Recommend: 1. Continue regular diet; encourage PO 2. Ensure Enlive BIDBD 3. Routine bowel care 4. Weekly scaled weights Addendum: 12/07/20 at [address] Amended: Links added.
[2020-12-07 14:00] VITALS: BP 139/76
[2020-12-07 18:00] VITALS: BP 117/79
--- NOTE | 2020-12-07 18:36 | NUR ---
Problems reprioritized. Patient report given, questions answered & plan of care reviewed with LUIS CATALAN.
[2020-12-07 22:00] VITALS: BP 129/79
[2020-12-08 06:00] VITALS: BP 117/77
--- NOTE | 2020-12-08 06:30 | NUR ---
RECEIVED REPORT FROM LUIS CATALAN
[2020-12-08] MEDS: lactose-reduced food (Ensure Enlive) - 237ml bottle PO SCH ×2 (07:42→17:49)
[2020-12-08 08:20] LABS: BASOPHILS # (AUTO) 0.1 X10'3 (0-0.2); BASOPHILS % (AUTO) 0.4 % (0-1); EOSINOPHILS # (AUTO) 0.1 X10'3 (0-0.9); EOSINOPHILS % (AUTO) 0.3 % (0-6); HEMATOCRIT 37.7 % (35.0-45.0); HEMOGLOBIN 12.3 g/dl (12.0-16.0); LYMPHOCYTES # (AUTO) 1.8 X10'3 (1.1-4.8); LYMPHOCYTES % (AUTO) 10.1 % (21-51); MEAN CORPUSCULAR HEMOGLOBIN 27.9 PG (27.0-31.0); MEAN CORPUSCULAR HGB CONC 32.7 g/dL (33.0-36.5); MEAN CORPUSCULAR VOLUME 85.5 FL (78-98); MEAN PLATELET VOLUME 7.3 FL (7.4-10.4); MONOCYTES # (AUTO) 0.7 X10'3 (0-0.9); MONOCYTES % (AUTO) 4.1 % (2-12); NEUTROPHILS # (AUTO) 15.2 X10'3 (1.8-7.7); NEUTROPHILS % (AUTO) 85.1 % (42-75); PLATELET COUNT 426 X10'3 (140-440); RED BLOOD COUNT 4.41 X10'6 (4.20-5.60); RED CELL DISTRIBUTION WIDTH 13.9 % (11.5-14.5); WHITE BLOOD COUNT 17.9 X10'3 (4.5-11.0)
[2020-12-08 08:28] LABS: ALANINE AMINOTRANSFERASE 39 U/L (12-78); ALBUMIN 2.4 G/DL (3.4-5.0); ALBUMIN/GLOBULIN RATIO 0.5 (1.1-1.5); ALKALINE PHOSPHATASE 187 IU/L (46-116); ANION GAP 8 (8-16); ASPARTATE AMINO TRANSFERASE 15 U/L (10-37); BILIRUBIN,TOTAL 0.3 MG/DL (0.1-1.0); BLOOD UREA NITROGEN 14 MG/DL (7-18); BUN/CREATININE RATIO 22.6 (6.6-38.0); C-REACTIVE PROTEIN 1.57 MG/DL (0.0-0.5); CALCIUM 9.1 MG/DL (8.5-10.1); CHLORIDE 100 MMOL/L (99-107); CREATININE 0.62 MG/DL (0.40-0.90); GLUCOSE 88 MG/DL (70-104); POTASSIUM 3.8 MMOL/L (3.5-5.1); SODIUM 139 MMOL/L (135-145); TOTAL CARBON DIOXIDE 31.4 MMOL/L (24-32); TOTAL PROTEIN 7.4 G/DL (6.4-8.2); eGFR > 90 ML/MIN
[2020-12-08] MEDS: amLODIPine 5mg tablet PO SCH (08:29)
[2020-12-08] MEDS: venlafaxine XR 37.5mg cap (Q24H) PO SCH (08:29)
[2020-12-08] MEDS: docusate sod 100mg capsule PO SCH ×2 (08:29→19:31)
[2020-12-08] MEDS: pantoprazole 40mg Tablet.DR PO SCH (08:30)
[2020-12-08] MEDS: methylPREDNISolone sod succ/PF 40mg inj. IV SCH ×2 (08:30→19:31)
[2020-12-08] MEDS: enoxaparin 40mg/0.4ml syringe SUBCUT SCH ×2 (08:31→19:32)
[2020-12-08] MEDS: ALPRAZolam 0.5mg tablet PO PRN ×2 (08:33→19:31)
[2020-12-08 09:04] LABS: D-DIMER 0.35 MG/L FEU (0-0.50)
[2020-12-08 10:00] VITALS: BP 135/79
[2020-12-08 14:00] VITALS: BP 128/85
[2020-12-08 18:00] VITALS: BP 135/79
--- NOTE | 2020-12-08 18:20 | NUR ---
GAVE REPORT TO LUIS RENAE
[2020-12-08 22:00] VITALS: BP 129/81
[2020-12-09 02:00] VITALS: BP 136/87
--- NOTE | 2020-12-09 06:21 | NUR ---
Problems reprioritized. Patient report given, questions answered & plan of care reviewed with LUIS Lynne.
[2020-12-09 06:30] VITALS: BP 134/88
--- NOTE | 2020-12-09 06:46 | NUR ---
Patient in room ORTHO 4014. I have received report from mynor abdi and had the opportunity to ask questions and assume patient care.
[2020-12-09] MEDS: lactose-reduced food (Ensure Enlive) - 237ml bottle PO SCH ×2 (07:32→17:44)
[2020-12-09] MEDS: pantoprazole 40mg Tablet.DR PO SCH (07:36)
[2020-12-09] MEDS: venlafaxine XR 37.5mg cap (Q24H) PO SCH (07:36)
[2020-12-09] MEDS: docusate sod 100mg capsule PO SCH ×2 (07:36→19:47)
[2020-12-09] MEDS: amLODIPine 5mg tablet PO SCH (07:36)
[2020-12-09] MEDS: enoxaparin 40mg/0.4ml syringe SUBCUT SCH ×2 (07:37→19:48)
[2020-12-09] MEDS: methylPREDNISolone sod succ/PF 40mg inj. IV SCH ×2 (07:37→19:48)
[2020-12-09] MEDS: ALPRAZolam 0.5mg tablet PO PRN ×2 (07:59→19:52)
[2020-12-09 10:03] LABS: BASOPHILS # (AUTO) 0.1 X10'3 (0-0.2); BASOPHILS % (AUTO) 0.3 % (0-1); EOSINOPHILS # (AUTO) 0.1 X10'3 (0-0.9); EOSINOPHILS % (AUTO) 0.7 % (0-6); HEMOGLOBIN 12.8 g/dl (12.0-16.0); LYMPHOCYTES # (AUTO) 0.9 X10'3 (1.1-4.8); LYMPHOCYTES % (AUTO) 4.3 % (21-51); MEAN CORPUSCULAR HEMOGLOBIN 27.7 PG (27.0-31.0); MEAN CORPUSCULAR HGB CONC 31.9 g/dL (33.0-36.5); MEAN CORPUSCULAR VOLUME 86.7 FL (78-98); MEAN PLATELET VOLUME 6.7 FL (7.4-10.4); MONOCYTES # (AUTO) 0.7 X10'3 (0-0.9); MONOCYTES % (AUTO) 3.4 % (2-12); NEUTROPHILS # (AUTO) 19.1 X10'3 (1.8-7.7); NEUTROPHILS % (AUTO) 91.3 % (42-75); PLATELET COUNT 425 X10'3 (140-440); RED BLOOD COUNT 4.61 X10'6 (4.20-5.60); RED CELL DISTRIBUTION WIDTH 14.4 % (11.5-14.5); WHITE BLOOD COUNT 20.9 X10'3 (4.5-11.0)
[2020-12-09 10:11] LABS: D-DIMER 0.38 MG/L FEU (0-0.50)
[2020-12-09 10:14] LABS: ALBUMIN 2.6 G/DL (3.4-5.0); ANION GAP 8 (8-16); BLOOD UREA NITROGEN 12 MG/DL (7-18); BUN/CREATININE RATIO 20.7 (6.6-38.0); C-REACTIVE PROTEIN 1.02 MG/DL (0.0-0.5); CALCIUM 9.5 MG/DL (8.5-10.1); CHLORIDE 101 MMOL/L (99-107); CREATININE 0.58 MG/DL (0.40-0.90); GLUCOSE 91 MG/DL (70-104); POTASSIUM 3.6 MMOL/L (3.5-5.1); SODIUM 141 MMOL/L (135-145); TOTAL CARBON DIOXIDE 32.3 MMOL/L (24-32); eGFR > 90 ML/MIN
[2020-12-09 10:29] LABS: ALANINE AMINOTRANSFERASE 49 U/L (12-78); ALBUMIN/GLOBULIN RATIO 0.5 (1.1-1.5); ALKALINE PHOSPHATASE 183 IU/L (46-116); ASPARTATE AMINO TRANSFERASE 16 U/L (10-37); BILIRUBIN,TOTAL 0.3 MG/DL (0.1-1.0); TOTAL PROTEIN 7.6 G/DL (6.4-8.2)
[2020-12-09 10:45] VITALS: BP 114/40
[2020-12-09 14:55] VITALS: BP 125/76
[2020-12-09 18:00] VITALS: BP 123/76
--- NOTE | 2020-12-09 18:22 | NUR ---
Patient in room ORTHO 4014. I have received report from LUIS Lynne and had the opportunity to ask questions and assume patient care.
--- NOTE | 2020-12-09 18:23 | NUR ---
Problems reprioritized. Patient report given, questions answered & plan of care reviewed with LAYLA SMITH.
[2020-12-09 22:00] VITALS: BP 120/77
[2020-12-10 02:00] VITALS: BP 118/67
--- NOTE | 2020-12-10 06:18 | NUR ---
Problems reprioritized. Patient report given, questions answered & plan of care reviewed with LUIS Lynne.
--- NOTE | 2020-12-10 06:41 | NUR ---
Patient in room ORTHO 4014. I have received report from mynor abdi and had the opportunity to ask questions and assume patient care.
[2020-12-10 06:57] VITALS: BP 99/60
[2020-12-10] MEDS: lactose-reduced food (Ensure Enlive) - 237ml bottle PO SCH ×2 (07:43→17:37)
[2020-12-10 07:45] LABS: BASOPHILS % (AUTO) 0.3 % (0-1); EOSINOPHILS # (AUTO) 0.2 X10'3 (0-0.9); EOSINOPHILS % (AUTO) 1.5 % (0-6); HEMATOCRIT 38.2 % (35.0-45.0); HEMOGLOBIN 12.4 g/dl (12.0-16.0); LYMPHOCYTES # (AUTO) 2.1 X10'3 (1.1-4.8); LYMPHOCYTES % (AUTO) 14.5 % (21-51); MEAN CORPUSCULAR HEMOGLOBIN 28.1 PG (27.0-31.0); MEAN CORPUSCULAR HGB CONC 32.4 g/dL (33.0-36.5); MEAN CORPUSCULAR VOLUME 86.7 FL (78-98); MEAN PLATELET VOLUME 6.8 FL (7.4-10.4); MONOCYTES # (AUTO) 0.8 X10'3 (0-0.9); MONOCYTES % (AUTO) 5.2 % (2-12); NEUTROPHILS # (AUTO) 11.5 X10'3 (1.8-7.7); NEUTROPHILS % (AUTO) 78.5 % (42-75); PLATELET COUNT 412 X10'3 (140-440); RED BLOOD COUNT 4.41 X10'6 (4.20-5.60); RED CELL DISTRIBUTION WIDTH 14.3 % (11.5-14.5); WHITE BLOOD COUNT 14.7 X10'3 (4.5-11.0)
[2020-12-10] MEDS: methylPREDNISolone sod succ/PF 40mg inj. IV SCH ×2 (07:54→19:40)
[2020-12-10] MEDS: enoxaparin 40mg/0.4ml syringe SUBCUT SCH ×2 (07:54→19:41)
[2020-12-10] MEDS: docusate sod 100mg capsule PO SCH ×2 (07:55→19:40)
[2020-12-10] MEDS: venlafaxine XR 37.5mg cap (Q24H) PO SCH (07:55)
[2020-12-10] MEDS: pantoprazole 40mg Tablet.DR PO SCH (07:55)
[2020-12-10 07:58] LABS: D-DIMER 0.39 MG/L FEU (0-0.50)
[2020-12-10] MEDS: ALPRAZolam 0.5mg tablet PO PRN ×2 (07:58→19:40)
[2020-12-10 08:00] LABS: ALANINE AMINOTRANSFERASE 36 U/L (12-78); ALBUMIN 2.5 G/DL (3.4-5.0); ALBUMIN/GLOBULIN RATIO 0.5 (1.1-1.5); ALKALINE PHOSPHATASE 163 IU/L (46-116); ANION GAP 4 (8-16); ASPARTATE AMINO TRANSFERASE 10 U/L (10-37); BILIRUBIN,TOTAL 0.3 MG/DL (0.1-1.0); BLOOD UREA NITROGEN 17 MG/DL (7-18); C-REACTIVE PROTEIN 1.34 MG/DL (0.0-0.5); CALCIUM 9.5 MG/DL (8.5-10.1); CHLORIDE 100 MMOL/L (99-107); CREATININE 0.63 MG/DL (0.40-0.90); GLUCOSE 85 MG/DL (70-104); POTASSIUM 3.8 MMOL/L (3.5-5.1); SODIUM 137 MMOL/L (135-145); TOTAL CARBON DIOXIDE 32.7 MMOL/L (24-32); TOTAL PROTEIN 7.2 G/DL (6.4-8.2); eGFR > 90 ML/MIN
[2020-12-10] MEDS: amLODIPine 5mg tablet PO SCH (08:00)
[2020-12-10 10:00] VITALS: BP 126/72
[2020-12-10 14:00] VITALS: BP 116/75
[2020-12-10 18:00] VITALS: BP 136/85
--- NOTE | 2020-12-10 18:20 | NUR ---
Patient in room ORTHO 4014. I have received report from LUIS Lynne and had the opportunity to ask questions and assume patient care.
--- NOTE | 2020-12-10 18:34 | NUR ---
Problems reprioritized. Patient report given, questions answered & plan of care reviewed with LAYLA SMITH.
[2020-12-10 22:00] VITALS: BP 106/59
[2020-12-11 02:00] VITALS: BP 121/68
--- NOTE | 2020-12-11 02:00 | NUR ---
also wearing a 15 liter NRB mask Addendum: 12/11/20 at 0235 by Jazmine Waddell RN Amended: Links added.
[2020-12-11 06:00] VITALS: BP 116/71
--- NOTE | 2020-12-11 06:28 | NUR ---
Problems reprioritized. Patient report given, questions answered & plan of care reviewed with LUIS Giang.
[2020-12-11] MEDS: lactose-reduced food (Ensure Enlive) - 237ml bottle PO SCH ×2 (07:30→17:30)
[2020-12-11 08:29] LABS: BASOPHILS # (AUTO) 0.1 X10'3 (0-0.2); BASOPHILS % (AUTO) 0.5 % (0-1); D-DIMER 0.34 MG/L FEU (0-0.50); EOSINOPHILS # (AUTO) 0.2 X10'3 (0-0.9); HEMATOCRIT 38.8 % (35.0-45.0); HEMOGLOBIN 12.7 g/dl (12.0-16.0); LYMPHOCYTES # (AUTO) 1.8 X10'3 (1.1-4.8); LYMPHOCYTES % (AUTO) 15.2 % (21-51); MEAN CORPUSCULAR HEMOGLOBIN 28.4 PG (27.0-31.0); MEAN CORPUSCULAR HGB CONC 32.7 g/dL (33.0-36.5); MEAN CORPUSCULAR VOLUME 86.9 FL (78-98); MONOCYTES # (AUTO) 0.7 X10'3 (0-0.9); MONOCYTES % (AUTO) 5.6 % (2-12); NEUTROPHILS # (AUTO) 9.3 X10'3 (1.8-7.7); NEUTROPHILS % (AUTO) 76.7 % (42-75); PLATELET COUNT 472 X10'3 (140-440); RED BLOOD COUNT 4.47 X10'6 (4.20-5.60); RED CELL DISTRIBUTION WIDTH 14.5 % (11.5-14.5); WHITE BLOOD COUNT 12.1 X10'3 (4.5-11.0)
[2020-12-11] MEDS: amLODIPine 5mg tablet PO SCH (08:37)
[2020-12-11] MEDS: venlafaxine XR 37.5mg cap (Q24H) PO SCH (08:37)
[2020-12-11] MEDS: pantoprazole 40mg Tablet.DR PO SCH (08:38)
[2020-12-11] MEDS: docusate sod 100mg capsule PO SCH ×2 (08:38→20:09)
[2020-12-11] MEDS: methylPREDNISolone sod succ/PF 40mg inj. IV SCH ×2 (08:38→20:08)
[2020-12-11] MEDS: enoxaparin 40mg/0.4ml syringe SUBCUT SCH ×2 (08:41→20:09)
[2020-12-11] MEDS: ALPRAZolam 0.5mg tablet PO PRN ×2 (08:55→20:16)
[2020-12-11] MEDS: magnesium hydroxide 30ml (MOM) UD suspension PO PRN (09:03)
[2020-12-11 09:43] LABS: ALANINE AMINOTRANSFERASE 31 U/L (12-78); ALBUMIN 2.5 G/DL (3.4-5.0); ALBUMIN/GLOBULIN RATIO 0.5 (1.1-1.5); ALKALINE PHOSPHATASE 159 IU/L (46-116); ANION GAP 7 (8-16); ASPARTATE AMINO TRANSFERASE 14 U/L (10-37); BILIRUBIN,TOTAL 0.3 MG/DL (0.1-1.0); BLOOD UREA NITROGEN 18 MG/DL (7-18); BUN/CREATININE RATIO 32.7 (6.6-38.0); C-REACTIVE PROTEIN 1.46 MG/DL (0.0-0.5); CALCIUM 9.6 MG/DL (8.5-10.1); CHLORIDE 103 MMOL/L (99-107); CREATININE 0.55 MG/DL (0.40-0.90); GLUCOSE 80 MG/DL (70-104); POTASSIUM 4.3 MMOL/L (3.5-5.1); SODIUM 143 MMOL/L (135-145); TOTAL CARBON DIOXIDE 32.8 MMOL/L (24-32); TOTAL PROTEIN 7.4 G/DL (6.4-8.2); eGFR > 90 ML/MIN
[2020-12-11 10:00] VITALS: BP 124/73
[2020-12-11] MEDS: HYDROcodone/acetaminophen 5mg/325mg tablet PO PRN (12:32)
[2020-12-11 14:00] VITALS: BP 111/70
--- NOTE | 2020-12-11 14:35 | NUR ---
PAGER ID: [phone] MESSAGE: Renetta Viktor9. Jesus Macias, 4014A: Patient still in Sinus tachycardia, heart ranges from 116 to 150. patient had a large BM after suds enema given.
[2020-12-11 18:00] VITALS: BP 115/72
--- NOTE | 2020-12-11 18:00 | NUR ---
ALSO WEARING 15 LITERS NRB MASK Addendum: 12/11/20 at 1947 by Jazmine Waddell RN Amended: Links added.
[2020-12-11 22:00] VITALS: BP 110/67
--- NOTE | 2020-12-11 22:00 | NUR ---
Also wearing 15 liters NBR mask Addendum: 12/11/20 at 2308 by Jazmine Waddell RN Amended: Links added.
[2020-12-12 06:00] VITALS: BP 122/77
--- NOTE | 2020-12-12 06:05 | NUR ---
received report from jin davey
--- NOTE | 2020-12-12 06:18 | NUR ---
Pt handoff to Denisha SMTIH
[2020-12-12] MEDS: pantoprazole 40mg Tablet.DR PO SCH (07:20)
[2020-12-12] MEDS: ALPRAZolam 0.5mg tablet PO PRN ×2 (07:20→19:36)
[2020-12-12] MEDS: amLODIPine 5mg tablet PO SCH (07:21)
[2020-12-12] MEDS: venlafaxine XR 37.5mg cap (Q24H) PO SCH (07:21)
[2020-12-12] MEDS: docusate sod 100mg capsule PO SCH ×2 (07:22→19:36)
[2020-12-12] MEDS: methylPREDNISolone sod succ/PF 40mg inj. IV SCH ×2 (07:22→15:16)
[2020-12-12] MEDS: lactose-reduced food (Ensure Enlive) - 237ml bottle PO SCH ×2 (07:22→17:35)
[2020-12-12] MEDS: HYDROcodone/acetaminophen 10/325mg tab PO PRN (07:27)
[2020-12-12] MEDS: enoxaparin 40mg/0.4ml syringe SUBCUT SCH ×2 (07:31→19:37)
[2020-12-12 07:44] LABS: BASOPHILS # (AUTO) 0.1 X10'3 (0-0.2); BASOPHILS % (AUTO) 0.5 % (0-1); EOSINOPHILS # (AUTO) 0.3 X10'3 (0-0.9); EOSINOPHILS % (AUTO) 2.2 % (0-6); HEMATOCRIT 36.5 % (35.0-45.0); HEMOGLOBIN 12.1 g/dl (12.0-16.0); LYMPHOCYTES # (AUTO) 1.6 X10'3 (1.1-4.8); LYMPHOCYTES % (AUTO) 13.3 % (21-51); MEAN CORPUSCULAR HEMOGLOBIN 28.8 PG (27.0-31.0); MEAN CORPUSCULAR HGB CONC 33.2 g/dL (33.0-36.5); MEAN CORPUSCULAR VOLUME 86.7 FL (78-98); MONOCYTES # (AUTO) 0.5 X10'3 (0-0.9); MONOCYTES % (AUTO) 4.2 % (2-12); NEUTROPHILS # (AUTO) 9.4 X10'3 (1.8-7.7); NEUTROPHILS % (AUTO) 79.8 % (42-75); PLATELET COUNT 447 X10'3 (140-440); RED BLOOD COUNT 4.21 X10'6 (4.20-5.60); RED CELL DISTRIBUTION WIDTH 14.3 % (11.5-14.5); WHITE BLOOD COUNT 11.7 X10'3 (4.5-11.0)
[2020-12-12 07:50] LABS: ALANINE AMINOTRANSFERASE 25 U/L (12-78); ALBUMIN 2.4 G/DL (3.4-5.0); ALBUMIN/GLOBULIN RATIO 0.5 (1.1-1.5); ALKALINE PHOSPHATASE 150 IU/L (46-116); ANION GAP 7 (8-16); ASPARTATE AMINO TRANSFERASE 13 U/L (10-37); BILIRUBIN,TOTAL 0.3 MG/DL (0.1-1.0); BLOOD UREA NITROGEN 15 MG/DL (7-18); BUN/CREATININE RATIO 27.3 (6.6-38.0); C-REACTIVE PROTEIN 1.64 MG/DL (0.0-0.5); CALCIUM 9.3 MG/DL (8.5-10.1); CHLORIDE 101 MMOL/L (99-107); CREATININE 0.55 MG/DL (0.40-0.90); GLUCOSE 92 MG/DL (70-104); SODIUM 140 MMOL/L (135-145); TOTAL CARBON DIOXIDE 32.5 MMOL/L (24-32); TOTAL PROTEIN 7.1 G/DL (6.4-8.2); eGFR > 90 ML/MIN
--- NOTE | 2020-12-12 08:00 | NUR ---
precision aircraft structure assembler nurse told me that pt had a bm on 12/11, but a bm has not been recorded for this patient on 12/11
[2020-12-12 08:03] LABS: D-DIMER 0.32 MG/L FEU (0-0.50)
--- NOTE | 2020-12-12 09:29 | NUR ---
F/u 12/12: Pt PO intake is moderate, avg 40% x 7 meals on Regular diet and 75% x 7 last documented ONS meeting needs at this time. Noted pt was complaining of constipation w/ no BM since 12/05. Per RN pt was able to have BM 12/11 s/p enema. No new nutrition intervention implemented at this time, will continue to monitor. Recommend: 1. Continue regular diet; encourage PO 2. Ensure Enlive BIDBD 3. Routine bowel care 4. Weekly scaled weights Addendum: 12/12/20 at [address] Amended: Links added.
[2020-12-12 10:00] VITALS: BP 111/68
[2020-12-12] MEDS ORDERED: magnesium hydroxide 30ml (MOM) UD suspension PO PRN (11:15)
[2020-12-12 14:00] VITALS: BP 122/73
--- NOTE | 2020-12-12 16:57 | NUR ---
EVERY TIME I GO INTO PATIENT'S ROOM I ENCOURAGE HER TO USE HER IS, PT DOES NOT WANT TO USE HER IS, I ENCOURAGE HER TO USE THE BSC INSTEAD OF THE BED BOWMAN, PT IS CURRENTLY TELLING ME THAT SHE BECOMES TOO SHORT OF BREATH TO USE THE BSC, ADMIN COLACE THIS MORNING TO HELP PT HAVE A BM, I HAVE ENCOURAGED PT TO TAKE MOM AND PRUNE JUICE BUT PT TELLS ME THAT SHE HAD A BM YESTERDAY BUT CONCERNED THAT PT MAY STILL BE CONSTIPATED, CONTINUE TO EDUCATE AND TO MONITOR
[2020-12-12 18:00] VITALS: BP 127/74
--- NOTE | 2020-12-12 18:19 | NUR ---
gave report mikie jane rn
--- NOTE | 2020-12-12 18:31 | NUR ---
Off going dayshift nurse on 12-11 told me that she gave Pt a soap enema and that she had a bm. This was not charted but Pt confirmed she did have a bm after enema administration.
[2020-12-12] MEDS: HYDROcodone/acetaminophen 5mg/325mg tablet PO PRN (19:41)
[2020-12-12] MEDS ORDERED: psyllium seed 3.4 gm packet PO SCH (21:00)
[2020-12-12 22:00] VITALS: BP 134/72
[2020-12-13 01:59] VITALS: BP 121/77
[2020-12-13 06:00] VITALS: BP 127/71
--- NOTE | 2020-12-13 06:10 | NUR ---
RECEIVED REPORT FROM LYLY Zhang RN
--- NOTE | 2020-12-13 06:13 | NUR ---
Problems reprioritized. Patient report given, questions answered & plan of care reviewed with LUIS Denny.
[2020-12-13] MEDS: lactose-reduced food (Ensure Enlive) - 237ml bottle PO SCH ×2 (07:30→17:55)
[2020-12-13 08:31] LABS: BASOPHILS # (AUTO) 0.1 X10'3 (0-0.2); BASOPHILS % (AUTO) 0.4 % (0-1); EOSINOPHILS # (AUTO) 0.6 X10'3 (0-0.9); HEMATOCRIT 36.9 % (35.0-45.0); HEMOGLOBIN 12.5 g/dl (12.0-16.0); LYMPHOCYTES # (AUTO) 2.2 X10'3 (1.1-4.8); LYMPHOCYTES % (AUTO) 14.3 % (21-51); MEAN CORPUSCULAR HEMOGLOBIN 28.7 PG (27.0-31.0); MEAN CORPUSCULAR HGB CONC 33.9 g/dL (33.0-36.5); MEAN CORPUSCULAR VOLUME 84.5 FL (78-98); MEAN PLATELET VOLUME 6.7 FL (7.4-10.4); MONOCYTES # (AUTO) 0.9 X10'3 (0-0.9); MONOCYTES % (AUTO) 5.8 % (2-12); NEUTROPHILS # (AUTO) 11.6 X10'3 (1.8-7.7); NEUTROPHILS % (AUTO) 75.5 % (42-75); PLATELET COUNT 492 X10'3 (140-440); RED BLOOD COUNT 4.37 X10'6 (4.20-5.60); RED CELL DISTRIBUTION WIDTH 14.1 % (11.5-14.5); WHITE BLOOD COUNT 15.3 X10'3 (4.5-11.0)
[2020-12-13] MEDS: methylPREDNISolone sod succ/PF 40mg inj. IV SCH (08:40)
[2020-12-13 08:41] LABS: D-DIMER 0.67 MG/L FEU (0-0.50)
[2020-12-13] MEDS: amLODIPine 5mg tablet PO SCH (08:41)
[2020-12-13] MEDS: pantoprazole 40mg Tablet.DR PO SCH (08:41)
[2020-12-13] MEDS: ALPRAZolam 0.5mg tablet PO PRN ×2 (08:41→21:09)
[2020-12-13] MEDS: enoxaparin 40mg/0.4ml syringe SUBCUT SCH ×2 (08:41→21:09)
[2020-12-13] MEDS: docusate sod 100mg capsule PO SCH ×2 (08:41→20:00)
[2020-12-13] MEDS: venlafaxine XR 37.5mg cap (Q24H) PO SCH (08:41)
[2020-12-13 08:47] LABS: ALANINE AMINOTRANSFERASE 25 U/L (12-78); ALBUMIN 2.4 G/DL (3.4-5.0); ALBUMIN/GLOBULIN RATIO 0.5 (1.1-1.5); ALKALINE PHOSPHATASE 143 IU/L (46-116); ANION GAP 9 (8-16); ASPARTATE AMINO TRANSFERASE 13 U/L (10-37); BILIRUBIN,TOTAL 0.3 MG/DL (0.1-1.0); BLOOD UREA NITROGEN 11 MG/DL (7-18); BUN/CREATININE RATIO 19.3 (6.6-38.0); C-REACTIVE PROTEIN 0.89 MG/DL (0.0-0.5); CALCIUM 9.2 MG/DL (8.5-10.1); CHLORIDE 100 MMOL/L (99-107); CREATININE 0.57 MG/DL (0.40-0.90); GLUCOSE 85 MG/DL (70-104); POTASSIUM 3.4 MMOL/L (3.5-5.1); SODIUM 140 MMOL/L (135-145); TOTAL CARBON DIOXIDE 30.6 MMOL/L (24-32); eGFR > 90 ML/MIN
[2020-12-13] MEDS: HYDROcodone/acetaminophen 10/325mg tab PO PRN ×3 (08:48→22:04)
[2020-12-13] MEDS ORDERED: potassium Cl 40MEQ/1/2NS 520ml 520 ML IV PRN ×2 (09:05)
[2020-12-13] MEDS ORDERED: potassium Cl 20 mEq SR tablet PO PRN (09:05)
[2020-12-13] MEDS: psyllium seed 3.4 gm packet PO SCH (09:43)
[2020-12-13] MEDS: potassium Cl 20 mEq SR tablet PO PRN ×3 (09:43→17:22)
[2020-12-13 10:00] VITALS: BP 132/70
[2020-12-13 14:00] VITALS: BP 115/69
[2020-12-13 18:20] VITALS: BP 130/83
--- NOTE | 2020-12-13 18:40 | NUR ---
GAVE REPORT TO June,
[2020-12-14 01:30] VITALS: BP 110/74
[2020-12-14 06:00] VITALS: BP 145/81
--- NOTE | 2020-12-14 06:20 | NUR ---
Patient in room ORTHO 4022. I have received report from Karon RN and had the opportunity to ask questions and assume patient care.
[2020-12-14] MEDS: HYDROcodone/acetaminophen 10/325mg tab PO PRN ×2 (06:22→16:16)
[2020-12-14] MEDS: amLODIPine 5mg tablet PO SCH (08:09)
[2020-12-14] MEDS: venlafaxine XR 37.5mg cap (Q24H) PO SCH (08:09)
[2020-12-14] MEDS: docusate sod 100mg capsule PO SCH ×2 (08:09→20:00)
[2020-12-14] MEDS: psyllium seed 3.4 gm packet PO SCH (08:09)
[2020-12-14] MEDS: methylPREDNISolone sod succ/PF 40mg inj. IV SCH ×2 (08:10→16:15)
[2020-12-14] MEDS: pantoprazole 40mg Tablet.DR PO SCH (08:10)
[2020-12-14] MEDS: lactose-reduced food (Ensure Enlive) - 237ml bottle PO SCH ×2 (08:10→17:56)
[2020-12-14] MEDS: enoxaparin 40mg/0.4ml syringe SUBCUT SCH ×2 (08:10→20:00)
[2020-12-14 08:47] LABS: BASOPHILS # (AUTO) 0.1 X10'3 (0-0.2); BASOPHILS % (AUTO) 0.7 % (0-1); EOSINOPHILS # (AUTO) 1.2 X10'3 (0-0.9); EOSINOPHILS % (AUTO) 7.6 % (0-6); HEMOGLOBIN 12.9 g/dl (12.0-16.0); LYMPHOCYTES # (AUTO) 1.9 X10'3 (1.1-4.8); LYMPHOCYTES % (AUTO) 12.5 % (21-51); MEAN CORPUSCULAR HEMOGLOBIN 28.3 PG (27.0-31.0); MEAN CORPUSCULAR HGB CONC 32.9 g/dL (33.0-36.5); MEAN CORPUSCULAR VOLUME 86.1 FL (78-98); MEAN PLATELET VOLUME 6.8 FL (7.4-10.4); MONOCYTES # (AUTO) 0.8 X10'3 (0-0.9); MONOCYTES % (AUTO) 5.1 % (2-12); NEUTROPHILS # (AUTO) 11.5 X10'3 (1.8-7.7); NEUTROPHILS % (AUTO) 74.1 % (42-75); PLATELET COUNT 534 X10'3 (140-440); RED BLOOD COUNT 4.53 X10'6 (4.20-5.60); WHITE BLOOD COUNT 15.5 X10'3 (4.5-11.0)
[2020-12-14 09:13] LABS: D-DIMER 1.02 MG/L FEU (0-0.50)
[2020-12-14 09:23] LABS: ALANINE AMINOTRANSFERASE 145 U/L (12-78); ALBUMIN 2.2 G/DL (3.4-5.0); ALBUMIN/GLOBULIN RATIO 0.4 (1.1-1.5); ALKALINE PHOSPHATASE 300 IU/L (46-116); ANION GAP 11 (8-16); ASPARTATE AMINO TRANSFERASE 44 U/L (10-37); BILIRUBIN,TOTAL 0.8 MG/DL (0.1-1.0); BLOOD UREA NITROGEN 8 MG/DL (7-18); BUN/CREATININE RATIO 15.7 (6.6-38.0); C-REACTIVE PROTEIN 10.56 MG/DL (0.0-0.5); CALCIUM 8.9 MG/DL (8.5-10.1); CHLORIDE 97 MMOL/L (99-107); CREATININE 0.51 MG/DL (0.40-0.90); GLUCOSE 89 MG/DL (70-104); POTASSIUM 3.9 MMOL/L (3.5-5.1); SODIUM 136 MMOL/L (135-145); TOTAL CARBON DIOXIDE 27.9 MMOL/L (24-32); TOTAL PROTEIN 7.2 G/DL (6.4-8.2); eGFR > 90 ML/MIN
[2020-12-14 10:00] VITALS: BP 130/77
[2020-12-14] MEDS: ALPRAZolam 0.5mg tablet PO PRN (10:56)
[2020-12-14 14:00] VITALS: BP 142/88
--- NOTE | 2020-12-14 18:31 | NUR ---
Problems reprioritized. Patient report given, questions answered & plan of care reviewed with Neelima SMITH.
[2020-12-14 22:00] VITALS: BP 127/83
[2020-12-15] VITALS (7 sets, daily range): BP systolic 92–136; BP diastolic 51–80
[2020-12-15] MEDS: methylPREDNISolone sod succ/PF 40mg inj. IV SCH ×3 (00:37→16:30)
[2020-12-15 06:48] LABS: ABG BASE EXCESS 4.8 mmol/L (-2.0-2.0); ABG HCO3 29.6 mmol/L (22.0-26.0); ABG PCO2 (T) 44.1 mmHg (32.0-45.0); ABG PO2 (T) 34.2 mmHg (75.0-100.0); ALLEN'S TEST POSITIVE; FCOHb 1.5 % (0.0-3.9); FLOW 15 L/min; FMetHb 0.1 % (0.0-1.5); FO2Hb 67.9 % (94-97)
[2020-12-15] MEDS: lactose-reduced food (Ensure Enlive) - 237ml bottle PO SCH ×2 (06:58→16:43)
[2020-12-15] MEDS: morphine 2 MG/ML inj. syringe IV PRN ×2 (06:59→18:58)
[2020-12-15] MEDS ORDERED: LIDOcaine 2% 10ml TOPICAL JELLY (Urojet) TP ONE (08:25)
[2020-12-15] MEDS: venlafaxine XR 37.5mg cap (Q24H) PO SCH (09:20)
[2020-12-15] MEDS: psyllium seed 3.4 gm packet PO SCH (09:20)
[2020-12-15] MEDS: pantoprazole 40mg Tablet.DR PO SCH (09:20)
[2020-12-15] MEDS: docusate sod 100mg capsule PO SCH ×2 (09:21→20:20)
[2020-12-15] MEDS: amLODIPine 5mg tablet PO SCH (09:22)
[2020-12-15] MEDS: enoxaparin 40mg/0.4ml syringe SUBCUT SCH ×2 (09:23→20:20)
[2020-12-15] MEDS: dexmedetomidin/NS 400mcg/100ml 100 ML IV SCH ×2 (09:24→17:34)
[2020-12-15 09:40] LABS: ABG BASE EXCESS 4.7 mmol/L (-2.0-2.0); ABG HCO3 29.8 mmol/L (22.0-26.0); ABG OXYGEN SATURATION 88.1 % (94-97); ABG PO2 (T) 52.8 mmHg (75.0-100.0); ALLEN'S TEST POSITIVE; FMetHb 0.3 % (0.0-1.5); RESPIRATORY RATE 12 b/min; TIDAL VOLUME 564 mL; TOTAL HEMOGLOBIN 14.8 G/dl (12.0-16.0)
[2020-12-15] MEDS ORDERED: bisacodyl 10mg suppository rectal RC STA (13:21)
[2020-12-15] MEDS ORDERED: dextrose 5%-normal saline 1,000 ML IV SCH (13:25)
[2020-12-15] MEDS: dextrose 5%-normal saline 1,000 ML IV SCH (15:00)
[2020-12-15] MEDS ORDERED: nicotine 21mg patch - 24 hr TD SCH (16:00)
[2020-12-15] MEDS: nicotine 21mg patch - 24 hr TD SCH (17:20)
[2020-12-15] MEDS: ALPRAZolam 0.5mg tablet PO PRN (20:37)
[2020-12-16] VITALS (23 sets, daily range): BP systolic 96–121; BP diastolic 61–74
[2020-12-16] MEDS: methylPREDNISolone sod succ/PF 40mg inj. IV SCH ×3 (00:09→16:49)
[2020-12-16] MEDS: dextrose 5%-normal saline 1,000 ML IV SCH ×3 (02:38→22:50)
[2020-12-16] MEDS: morphine 2 MG/ML inj. syringe IV PRN (03:16)
[2020-12-16 03:21] LABS: BASOPHILS # (AUTO) 0.1 X10'3 (0-0.2); BASOPHILS % (AUTO) 0.6 % (0-1); EOSINOPHILS % (AUTO) 0 % (0-6); HEMATOCRIT 36.2 % (35.0-45.0); LYMPHOCYTES # (AUTO) 0.8 X10'3 (1.1-4.8); LYMPHOCYTES % (AUTO) 7.1 % (21-51); MEAN CORPUSCULAR HEMOGLOBIN 28.8 PG (27.0-31.0); MEAN CORPUSCULAR HGB CONC 33.1 g/dL (33.0-36.5); MEAN CORPUSCULAR VOLUME 86.9 FL (78-98); MEAN PLATELET VOLUME 7.2 FL (7.4-10.4); MONOCYTES # (AUTO) 0.4 X10'3 (0-0.9); MONOCYTES % (AUTO) 3.8 % (2-12); NEUTROPHILS # (AUTO) 10.5 X10'3 (1.8-7.7); NEUTROPHILS % (AUTO) 88.5 % (42-75); PLATELET COUNT 553 X10'3 (140-440); RED BLOOD COUNT 4.16 X10'6 (4.20-5.60); RED CELL DISTRIBUTION WIDTH 14.6 % (11.5-14.5); WHITE BLOOD COUNT 11.8 X10'3 (4.5-11.0)
[2020-12-16 03:37] LABS: D-DIMER 0.22 MG/L FEU (0-0.50)
[2020-12-16 03:40] LABS: ALBUMIN 2.1 G/DL (3.4-5.0); ANION GAP 8 (8-16); BLOOD UREA NITROGEN 29 MG/DL (7-18); C-REACTIVE PROTEIN 4.91 MG/DL (0.0-0.5); CALCIUM 9.2 MG/DL (8.5-10.1); CHLORIDE 108 MMOL/L (99-107); CREATININE 0.63 MG/DL (0.40-0.90); GLUCOSE 167 MG/DL (70-104); MAGNESIUM 2.3 MG/DL (1.5-2.4); PHOSPHORUS 3.3 MG/DL (2.3-4.5); SODIUM 143 MMOL/L (135-145); TOTAL CARBON DIOXIDE 27.2 MMOL/L (24-32); eGFR > 90 ML/MIN
[2020-12-16] MEDS: dexmedetomidin/NS 400mcg/100ml 100 ML IV SCH ×2 (05:22→17:42)
[2020-12-16] MEDS: ALPRAZolam 0.5mg tablet PO PRN (05:24)
--- NOTE | 2020-12-16 06:31 | NUR ---
Problems reprioritized. Patient report given, questions answered & plan of care reviewed with Mike.
[2020-12-16] MEDS: lactose-reduced food (Ensure Enlive) - 237ml bottle PO SCH ×2 (07:30→16:50)
[2020-12-16] MEDS: nicotine 21mg patch - 24 hr TD SCH (07:58)
[2020-12-16] MEDS: amLODIPine 5mg tablet PO SCH (07:59)
[2020-12-16] MEDS: pantoprazole 40mg Tablet.DR PO SCH (07:59)
[2020-12-16] MEDS: venlafaxine XR 37.5mg cap (Q24H) PO SCH (07:59)
[2020-12-16] MEDS: enoxaparin 40mg/0.4ml syringe SUBCUT SCH ×2 (07:59→20:20)
[2020-12-16] MEDS: docusate sod 100mg capsule PO SCH ×2 (07:59→20:19)
[2020-12-16] MEDS: psyllium seed 3.4 gm packet PO SCH (08:00)
--- NOTE | 2020-12-16 11:29 | NUR ---
TPN Consult: Pt s/p rapid response last night currently requiring full face bipap at 17.7L/min to remain NPO w/ exception to a few medications. Prior poor PO hx 7 days and TPN to start today pending PICC per MD; PN recs below given pt needs. Noted pt receiving NS/D5 at 100ml/hr however to likely wean once PN initiates. Will monitor for PN tolerance and adjustment needs. Recommend: 1. Continuous TPN via PICC line per MD using 2:1 Clinimix E 5/20 at 62.5ml/hr goal w/ separate 100ml 20% intralipids to run at 8.33ml/hr daily. In total to provide 1500ml volume/day, 75g AA, 300g DEX (4.12mg/kg/min), and 1520 total kcals. 2. TG/PALB Q /; daily wts 3. Consider weaning D5/NS once PN initiated if MD agreeable 4. monitor for PN tolerance and signs of refeeding given poor PO hx 5. bowel care per rx 6. advance to regular diet as medically indicated; consider CARAMEL CUTTER HELPER BSS if PO concerns. Once PO diet resumes and at least full liquids resume Ensure Enlives TID Addendum: 12/16/20 at [address] Amended: Links added.
[2020-12-16] MEDS ORDERED: magnesium Cl slow-release 64mg tablet PO PRN (11:35)
[2020-12-16] MEDS ORDERED: Dextrose 10%-water IV solution 1,000 ML IV PRN (11:35)
[2020-12-16] MEDS ORDERED: magnesium 2GM in 50ml NS 50 ML IV PRN (11:35)
[2020-12-16] MEDS ORDERED: sodium phosphate inj. 30 MMOL in dextrose 5%-water 250 ML IV PRN (11:35)
[2020-12-16] MEDS ORDERED: sodium phosphate inj. 15 MMOL in dextrose 5%-water 250 ML IV PRN (11:35)
[2020-12-16] MEDS ORDERED: Neutra Phos packet PO PRN (11:35)
[2020-12-16] MEDS ORDERED: potassium Cl 20 mEq SR tablet PO PRN ×4 (11:35)
[2020-12-16] MEDS ORDERED: potassium Cl 40MEQ/1/2NS 520ml 520 ML IV PRN ×4 (11:35)
[2020-12-16] MEDS ORDERED: magnesium 4gm in 100ml NS 100 ML IV PRN (11:35)
[2020-12-16] MEDS ORDERED: K, MAG and/or Phos replacement - Verify level? MC SCH (11:35)
[2020-12-16 12:01] LABS: TRIGLYCERIDES 302 MG/DL (20-135)
[2020-12-16] MEDS: LORazepam 2 mg/ml vial IV PRN (17:41)
--- NOTE | 2020-12-16 18:32 | NUR ---
Patient in room CICU 2008. I have received report from LUIS Mckeon and had the opportunity to ask questions and assume patient care.
--- NOTE | 2020-12-16 18:34 | NUR ---
Problems reprioritized. Patient report given, questions answered & plan of care reviewed with
[2020-12-16] MEDS: K and/or MAG REPLACEMENT MC SCH (20:00)
[2020-12-17] VITALS (23 sets, daily range): BP systolic 108–142; BP diastolic 59–81
[2020-12-17] MEDS: morphine 2 MG/ML inj. syringe IV PRN ×2 (00:06→06:31)
[2020-12-17] MEDS: methylPREDNISolone sod succ/PF 40mg inj. IV SCH ×4 (00:06→23:53)
[2020-12-17] MEDS: dextrose 5%-normal saline 1,000 ML IV SCH ×3 (00:25→20:30)
[2020-12-17 03:32] LABS: ABG BASE EXCESS -1.8 mmol/L (-2.0-2.0); ABG HCO3 22.6 mmol/L (22.0-26.0); ABG PCO2 (T) 35.8 mmHg (32.0-45.0); ABG PO2 (T) 64.7 mmHg (75.0-100.0); ALLEN'S TEST POSITIVE; FCOHb 0.2 % (0.0-3.9); FMetHb 0.2 % (0.0-1.5); FO2Hb 92.6 % (94-97); PATIENT TEMPERATURE 36.2; RESPIRATORY RATE 16 b/min; TOTAL HEMOGLOBIN 11.4 G/dl (12.0-16.0)
[2020-12-17] MEDS: ALPRAZolam 0.5mg tablet PO PRN (04:03)
--- NOTE | 2020-12-17 06:22 | NUR ---
Problems reprioritized. Patient report given, questions answered & plan of care reviewed with LUIS Hall.
[2020-12-17 07:01] LABS: BASOPHILS % (AUTO) 0.2 % (0-1); EOSINOPHILS % (AUTO) 0 % (0-6); HEMATOCRIT 34.2 % (35.0-45.0); HEMOGLOBIN 11.4 g/dl (12.0-16.0); LYMPHOCYTES % (AUTO) 7.5 % (21-51); MEAN CORPUSCULAR HEMOGLOBIN 28.8 PG (27.0-31.0); MEAN CORPUSCULAR HGB CONC 33.3 g/dL (33.0-36.5); MEAN CORPUSCULAR VOLUME 86.7 FL (78-98); MEAN PLATELET VOLUME 7.1 FL (7.4-10.4); MONOCYTES # (AUTO) 0.3 X10'3 (0-0.9); MONOCYTES % (AUTO) 2.5 % (2-12); NEUTROPHILS % (AUTO) 89.8 % (42-75); PLATELET COUNT 542 X10'3 (140-440); RED BLOOD COUNT 3.95 X10'6 (4.20-5.60); RED CELL DISTRIBUTION WIDTH 14.4 % (11.5-14.5); WHITE BLOOD COUNT 13.3 X10'3 (4.5-11.0)
[2020-12-17 07:11] LABS: D-DIMER 0.32 MG/L FEU (0-0.50)
[2020-12-17 07:20] LABS: ALANINE AMINOTRANSFERASE 41 U/L (12-78); ALBUMIN 2.1 G/DL (3.4-5.0); ALBUMIN/GLOBULIN RATIO 0.5 (1.1-1.5); ALKALINE PHOSPHATASE 162 IU/L (46-116); ANION GAP 2 (8-16); ASPARTATE AMINO TRANSFERASE 7 U/L (10-37); BILIRUBIN,TOTAL 0.3 MG/DL (0.1-1.0); BLOOD UREA NITROGEN 15 MG/DL (7-18); BUN/CREATININE RATIO 31.9 (6.6-38.0); C-REACTIVE PROTEIN 1.48 MG/DL (0.0-0.5); CALCIUM 8.9 MG/DL (8.5-10.1); CHLORIDE 105 MMOL/L (99-107); CREATININE 0.47 MG/DL (0.40-0.90); GLUCOSE 113 MG/DL (70-104); PHOSPHORUS 2.5 MG/DL (2.3-4.5); POTASSIUM 3.2 MMOL/L (3.5-5.1); SODIUM 133 MMOL/L (135-145); TOTAL CARBON DIOXIDE 25.6 MMOL/L (24-32); TOTAL PROTEIN 6.4 G/DL (6.4-8.2); eGFR > 90 ML/MIN
[2020-12-17] MEDS: lactose-reduced food (Ensure Enlive) - 237ml bottle PO SCH ×2 (07:30→18:45)
[2020-12-17] MEDS: docusate sod 100mg capsule PO SCH ×2 (08:25→20:28)
[2020-12-17] MEDS: venlafaxine XR 37.5mg cap (Q24H) PO SCH (08:26)
[2020-12-17] MEDS: amLODIPine 5mg tablet PO SCH (08:26)
[2020-12-17] MEDS: pantoprazole 40mg Tablet.DR PO SCH (08:26)
[2020-12-17] MEDS: nicotine 21mg patch - 24 hr TD SCH (08:27)
[2020-12-17] MEDS: psyllium seed 3.4 gm packet PO SCH (08:27)
[2020-12-17] MEDS: enoxaparin 40mg/0.4ml syringe SUBCUT SCH ×2 (08:28→20:28)
[2020-12-17] MEDS: dexmedetomidin/NS 400mcg/100ml 100 ML IV SCH (08:41)
[2020-12-17] MEDS: K and/or MAG REPLACEMENT MC SCH ×2 (08:55→20:00)
[2020-12-17] MEDS: HYDROcodone/acetaminophen 10/325mg tab PO PRN ×2 (09:57→14:57)
[2020-12-17] MEDS ORDERED: furosemide 20 MG/2 ML vial IV ONE (12:35)
[2020-12-17] MEDS ORDERED: Dextrose 10%-water IV solution 1,000 ML IV PRN (14:15)
[2020-12-17] MEDS: LORazepam 1 MG tablet PO PRN ×2 (14:58→20:29)
[2020-12-17] MEDS: DEXMEDETOMIDINE 400MCG in NORMAL SALINE 100ml IV SCH ×2 (18:00→23:57)
[2020-12-17] MEDS ORDERED: ZINC/COPPER/MANGANESE/SELENIUM 0.5 ML, chromic chloride inj. 5 MCG in AA 5%/CALCIUM/LYT... IV SCH (19:00)
[2020-12-17] MEDS: fat emulsion 20% inj. 100 ML IV SCH (20:29)
[2020-12-17] MEDS: LORazepam 2 mg/ml vial IV PRN (23:19)
[2020-12-18] VITALS (21 sets, daily range): BP systolic 92–148; BP diastolic 51–88
[2020-12-18 03:27] LABS: D-DIMER 0.57 MG/L FEU (0-0.50)
[2020-12-18 03:36] LABS: ALANINE AMINOTRANSFERASE 33 U/L (12-78); ALBUMIN 1.9 G/DL (3.4-5.0); ALBUMIN/GLOBULIN RATIO 0.5 (1.1-1.5); ALKALINE PHOSPHATASE 140 IU/L (46-116); ANION GAP 9 (8-16); ASPARTATE AMINO TRANSFERASE 15 U/L (10-37); BASOPHILS # (AUTO) 0.1 X10'3 (0-0.2); BASOPHILS % (AUTO) 0.4 % (0-1); BILIRUBIN,TOTAL 0.3 MG/DL (0.1-1.0); BLOOD UREA NITROGEN 14 MG/DL (7-18); BUN/CREATININE RATIO 24.6 (6.6-38.0); C-REACTIVE PROTEIN 0.74 MG/DL (0.0-0.5); CHLORIDE 103 MMOL/L (99-107); CREATININE 0.57 MG/DL (0.40-0.90); EOSINOPHILS % (AUTO) 0 % (0-6); GLUCOSE 209 MG/DL (70-104); HEMATOCRIT 31.1 % (35.0-45.0); HEMOGLOBIN 10.6 g/dl (12.0-16.0); LYMPHOCYTES # (AUTO) 0.4 X10'3 (1.1-4.8); LYMPHOCYTES % (AUTO) 3.3 % (21-51); MAGNESIUM 1.7 MG/DL (1.5-2.4); MEAN CORPUSCULAR HEMOGLOBIN 28.9 PG (27.0-31.0); MEAN PLATELET VOLUME 7.2 FL (7.4-10.4); MONOCYTES # (AUTO) 0.6 X10'3 (0-0.9); MONOCYTES % (AUTO) 4.1 % (2-12); NEUTROPHILS # (AUTO) 12.5 X10'3 (1.8-7.7); NEUTROPHILS % (AUTO) 92.2 % (42-75); PHOSPHORUS 2.2 MG/DL (2.3-4.5); PLATELET COUNT 412 X10'3 (140-440); RED BLOOD COUNT 3.66 X10'6 (4.20-5.60); RED CELL DISTRIBUTION WIDTH 13.9 % (11.5-14.5); SODIUM 139 MMOL/L (135-145); TOTAL CARBON DIOXIDE 27.4 MMOL/L (24-32); TOTAL PROTEIN 5.9 G/DL (6.4-8.2); WHITE BLOOD COUNT 13.6 X10'3 (4.5-11.0); eGFR > 90 ML/MIN
[2020-12-18] MEDS: LORazepam 2 mg/ml vial IV PRN ×2 (03:41→07:17)
[2020-12-18 04:31] LABS: ABG BASE EXCESS 1.3 mmol/L (-2.0-2.0); ABG HCO3 25.3 mmol/L (22.0-26.0); ABG PCO2 (T) 38.2 mmHg (32.0-45.0); ABG PO2 (T) 61.4 mmHg (75.0-100.0); ALLEN'S TEST POSITIVE; FCOHb 0.4 % (0.0-3.9); FMetHb 0.4 % (0.0-1.5); FO2Hb 90.3 % (94-97); PATIENT TEMPERATURE 37.1; RESPIRATORY RATE 16 b/min; TOTAL HEMOGLOBIN 12.2 G/dl (12.0-16.0)
[2020-12-18] MEDS: potassium Cl 40MEQ/250ML bag 270 ML IV PRN (06:08)
[2020-12-18] MEDS: dextrose 5%-normal saline 1,000 ML IV SCH (06:25)
[2020-12-18] MEDS: DEXMEDETOMIDINE 400MCG in NORMAL SALINE 100ml IV SCH ×3 (07:05→20:15)
[2020-12-18] MEDS: lactose-reduced food (Ensure Enlive) - 237ml bottle PO SCH ×2 (07:30→17:30)
[2020-12-18] MEDS: morphine 2 MG/ML inj. syringe IV PRN (07:49)
[2020-12-18] MEDS: docusate sod 100mg capsule PO SCH ×2 (08:00→19:37)
[2020-12-18] MEDS: methylPREDNISolone sod succ/PF 40mg inj. IV SCH ×3 (08:00→23:40)
[2020-12-18] MEDS ORDERED: rocuronium 10mg/ml inj IV ONE (08:00)
[2020-12-18] MEDS: psyllium seed 3.4 gm packet PO SCH (08:00)
[2020-12-18] MEDS: enoxaparin 40mg/0.4ml syringe SUBCUT SCH ×2 (08:00→19:37)
[2020-12-18] MEDS ORDERED: etomidate 2mg/ml inj. ONE (08:00)
[2020-12-18] MEDS: pantoprazole 40mg Tablet.DR PO SCH (08:00)
[2020-12-18] MEDS: nicotine 21mg patch - 24 hr TD SCH (08:00)
[2020-12-18] MEDS: K and/or MAG REPLACEMENT MC SCH ×2 (08:00→20:00)
[2020-12-18] MEDS: venlafaxine XR 37.5mg cap (Q24H) PO SCH (08:00)
[2020-12-18] MEDS: amLODIPine 5mg tablet PO SCH (08:00)
--- NOTE | 2020-12-18 08:00 | NUR ---
PATIENT PRESENTS INCREASE IN ANXIETY AND RESP RATE OF 42. REPOSITIONED IN BED. MEDICATED WITH ATIVAN , AND MORPHINE SULFATE THIS AM. DR. THOMPSON INTO SEE PATIENT; STAT CHEST X-RAY ORDERED.
[2020-12-18] MEDS ORDERED: fentaNYL/PF 50MCG/1 ML 2ML syringe IV PRN (10:00)
[2020-12-18] MEDS: FENTANYL-0.9 % NACL/PF 100 ML IV PRN ×4 (10:10→22:22)
[2020-12-18] MEDS: midazolam 100mg in NS 100ml 100 ML IV PRN ×3 (10:10→20:16)
[2020-12-18 10:12] LABS: ABG HCO3 29.5 mmol/L (22.0-26.0); ABG OXYGEN SATURATION 94.6 % (94-97); ABG PO2 (T) 89.2 mmHg (75.0-100.0); ALLEN'S TEST POSITIVE; FCOHb 0.6 % (0.0-3.9); FMetHb 0.5 % (0.0-1.5); FO2Hb 93.6 % (94-97); PEEP 12 cm H2O; RESPIRATORY RATE 16 b/min; TIDAL VOLUME 300 mL; TOTAL HEMOGLOBIN 13.7 G/dl (12.0-16.0)
[2020-12-18] MEDS ORDERED: metoprolol tartrate 1mg/ml inj IV ONE (10:50)
--- NOTE | 2020-12-18 11:00 | NUR ---
Patient was declining on the Bipap at 100% Fi02 with a saturation of about 84%, patient was very anxious and had an increased work of breath. Patient was to be intubated. With x2 RT, MD, and x2 RN bedside 20 of Etomidate and 50 of Rocuronium given to patient and then patient was successfully intubated at 0950 with tube placement 24 @teeth. Chest xray showed the ETT in just a tad far so RT pulled the tube back so final placement had the tube sitting at 22 @ teeth. Versed and Fentanyl gtt started per MD order.
[2020-12-18 11:52] LABS: ABG BASE EXCESS -0.9 mmol/L (-2.0-2.0); ABG HCO3 26.8 mmol/L (22.0-26.0); ABG OXYGEN SATURATION 84.4 % (94-97); ABG PCO2 (T) 58.5 mmHg (32.0-45.0); ABG PO2 (T) 54.3 mmHg (75.0-100.0); ALLEN'S TEST POSITIVE; FCOHb 0.5 % (0.0-3.9); FMetHb 0.3 % (0.0-1.5); FO2Hb 83.7 % (94-97); PATIENT TEMPERATURE 37.1; PEEP 12 cm H2O; RESPIRATORY RATE 20 b/min; TIDAL VOLUME 325 mL; TOTAL HEMOGLOBIN 13.1 G/dl (12.0-16.0)
--- NOTE | 2020-12-18 13:00 | NUR ---
Spoke with Inés, patient's daughter, and informed her of the current situation.
[2020-12-18] MEDS: NORepinephrine 8mg/ 250ml NS 250 ML IV PRN (14:16)
--- NOTE | 2020-12-18 14:42 | NUR ---
TF Consult: Pt now intubated w/ TF to start today per EMR. Pt previously started on TPN following PICC line yesterday w/ PN advanced to goal. Noted K and Phos decrease possible refeeding given prior poor intake this admit; receiving electrolyte replacement per protocol. LBM 12/15. TF recs below; will monitor for EN tolerance and adjustment needs on vent. IF EN tolerated then PN should wean as EN advances. Recommend: 1. Continuous TF per MD using Vital AF at 60ml/hr goal; to provide 1440ml volume, 1728 kcals, 1166ml water, and 108g protein. 2. Continuous TPN via PICC line per MD using 2:1 Clinimix E 5/20 at 62.5ml/hr goal w/ separate 100ml 20% intralipids to run at 8.33ml/hr daily. In total to provide 1500ml volume/day, 75g AA, 300g DEX (4.12mg/kg/min), and 1520 total kcals. 2. TG/PALB Q /; daily wts 3. signs of possible refeeding; electrolyte replacements per protocol 4. additional water flushes per building architect; prior low serum Na 133 currently 139 this AM 5. Monitor for TF tolerance. IF tolerating tube feeds advancement; wean PN as medically indicated 6. bowel care per rx Addendum: 12/18/20 at [address] Amended: Links added.
[2020-12-18 15:32] LABS: ANION GAP 4 (8-16); BLOOD UREA NITROGEN 15 MG/DL (7-18); BUN/CREATININE RATIO 21.4 (6.6-38.0); CALCIUM 8.5 MG/DL (8.5-10.1); CHLORIDE 106 MMOL/L (99-107); GLUCOSE 163 MG/DL (70-104); POTASSIUM 4.3 MMOL/L (3.5-5.1); SODIUM 139 MMOL/L (135-145); eGFR 85 ML/MIN
[2020-12-18] MEDS: ZINC/COPPER/MANGANESE/SELENIUM 0.5 ML, chromic chloride inj. 5 MCG in AA 5%/CALCIUM/LYT... IV SCH (17:42)
--- NOTE | 2020-12-18 18:30 | NUR ---
Patient in room CICU 2008. I have received report from Jeanne SMITH and had the opportunity to ask questions and assume patient care.
[2020-12-18] MEDS: fat emulsion 20% inj. 100 ML IV SCH (19:38)
--- NOTE | 2020-12-18 20:00 | NUR ---
KUB ordered to verify placement of Core kishan. Awaiting results for ok to run tube feeding through core kishan. TPN currently running.
[2020-12-18] MEDS ORDERED: insulin regular, human U-100 3ml vial - multi-dose SQ SCH (23:15)
[2020-12-18] MEDS ORDERED: insulin Lispro (HumaLOG) vial - multi-dose SQ SCH (23:15)
[2020-12-18] MEDS ORDERED: dextrose ORAL solution 15 GM/59 ML bottle PO PRN ×2 (23:15)
[2020-12-18] MEDS ORDERED: dextrose 50%-water 50ml dispensing syringe IV PRN ×2 (23:15)
[2020-12-18] MEDS ORDERED: glucagon, human recombinant 1mg kit SUBCUT PRN (23:15)
--- NOTE | 2020-12-18 23:30 | NUR ---
Called Dr Melvin pensionholder information clerk tele doctor to notify of patient change in condition. Sats down in the 80's. Patient proned and new orders for Nimbex received.
[2020-12-19] VITALS (24 sets, daily range): BP systolic 84–111; BP diastolic 50–68
--- NOTE | 2020-12-19 00:30 | NUR ---
Sats continue to be in the 70-80's. Chest xray ordered and ABG. Called Dr Melvin to notify of ABG results and asked him to review chest xray. Dr Melvin stated that he does not have access to the xrays and requested that I call ER to do a bedside eval. Called locum Dr Diaz to request to come in to see patient. Dr Diaz states he is not oncall 16/10 and requested that the ER be called. 0100- Called ER, Dr Kang to ask to come see patient. Awaiting ER doc at this time. Sats continue to be 83-84%.
[2020-12-19 00:46] LABS: ABG BASE EXCESS 0.8 mmol/L (-2.0-2.0); ABG HCO3 28.7 mmol/L (22.0-26.0); ABG OXYGEN SATURATION 78.8 % (94-97); ABG PCO2 (T) 61.8 mmHg (32.0-45.0); ABG PO2 (T) 44.9 mmHg (75.0-100.0); ALLEN'S TEST POSITIVE; FCOHb 0.9 % (0.0-3.9); FMetHb 0.3 % (0.0-1.5); FO2Hb 77.9 % (94-97); PATIENT TEMPERATURE 37.2; PEEP 12 cm H2O; RESPIRATORY RATE 20 b/min; TIDAL VOLUME 325 mL; TOTAL HEMOGLOBIN 13.1 G/dl (12.0-16.0)
[2020-12-19] MEDS: DEXMEDETOMIDINE 400MCG in NORMAL SALINE 100ml IV SCH ×2 (01:07→07:23)
[2020-12-19] MEDS: midazolam 100mg in NS 100ml 100 ML IV PRN ×3 (01:07→15:57)
--- NOTE | 2020-12-19 01:50 | NUR ---
TPN running. Awaiting COR MICHAEL placement confirmation. activities leader tele doc does not have access to KUB.
--- NOTE | 2020-12-19 02:00 | NUR ---
Dr Kang at bedside to assess patient. New orders for xray/ 0245- Dr kang reviewed chest xray. No pneumo, no new orders at this time.
[2020-12-19] MEDS: FENTANYL-0.9 % NACL/PF 100 ML IV PRN ×6 (02:20→21:29)
[2020-12-19 02:38] LABS: D-DIMER 1.96 MG/L FEU (0-0.50)
[2020-12-19 02:45] LABS: ALANINE AMINOTRANSFERASE 39 U/L (12-78); ALBUMIN 1.8 G/DL (3.4-5.0); ALBUMIN/GLOBULIN RATIO 0.4 (1.1-1.5); ALKALINE PHOSPHATASE 146 IU/L (46-116); ANION GAP 5 (8-16); ASPARTATE AMINO TRANSFERASE 17 U/L (10-37); BILIRUBIN,TOTAL 0.7 MG/DL (0.1-1.0); BLOOD UREA NITROGEN 20 MG/DL (7-18); BUN/CREATININE RATIO 33.9 (6.6-38.0); C-REACTIVE PROTEIN 5.29 MG/DL (0.0-0.5); CALCIUM 8.7 MG/DL (8.5-10.1); CHLORIDE 105 MMOL/L (99-107); CREATININE 0.59 MG/DL (0.40-0.90); GLUCOSE 144 MG/DL (70-104); MAGNESIUM 1.9 MG/DL (1.5-2.4); PHOSPHORUS 3.4 MG/DL (2.3-4.5); POTASSIUM 3.5 MMOL/L (3.5-5.1); SODIUM 141 MMOL/L (135-145); TOTAL CARBON DIOXIDE 31.2 MMOL/L (24-32); TOTAL PROTEIN 5.9 G/DL (6.4-8.2); eGFR > 90 ML/MIN
[2020-12-19 02:57] LABS: BASOPHILS % (AUTO) 0.2 % (0-1); EOSINOPHILS % (AUTO) 0.1 % (0-6); HEMATOCRIT 35.2 % (35.0-45.0); HEMOGLOBIN 11.7 g/dl (12.0-16.0); LYMPHOCYTES # (AUTO) 0.7 X10'3 (1.1-4.8); LYMPHOCYTES % (AUTO) 2.8 % (21-51); MEAN CORPUSCULAR HEMOGLOBIN 28.7 PG (27.0-31.0); MEAN CORPUSCULAR HGB CONC 33.1 g/dL (33.0-36.5); MEAN CORPUSCULAR VOLUME 86.6 FL (78-98); MONOCYTES # (AUTO) 0.3 X10'3 (0-0.9); NEUTROPHILS # (AUTO) 25.6 X10'3 (1.8-7.7); NEUTROPHILS % (AUTO) 95.9 % (42-75); PLATELET COUNT 599 X10'3 (140-440); RED BLOOD COUNT 4.06 X10'6 (4.20-5.60); RED CELL DISTRIBUTION WIDTH 14.1 % (11.5-14.5)
[2020-12-19 03:12] LABS: WHITE BLOOD COUNT 26.7 X10'3 (4.5-11.0)
[2020-12-19 03:23] LABS: ABG BASE EXCESS -1.3 mmol/L (-2.0-2.0); ABG HCO3 32.2 mmol/L (22.0-26.0); ABG OXYGEN SATURATION 84.8 % (94-97); ABG PCO2 (T) 115.5 mmHg (32.0-45.0); ABG PO2 (T) 64.4 mmHg (75.0-100.0); ALLEN'S TEST POSITIVE; FCOHb 0.6 % (0.0-3.9); FMetHb 0.4 % (0.0-1.5); PEEP 12 cm H2O; RESPIRATORY RATE 20 b/min; TIDAL VOLUME 325 mL; TOTAL HEMOGLOBIN 13.3 G/dl (12.0-16.0)
[2020-12-19 05:28] LABS: ABG BASE EXCESS -4.8 mmol/L (-2.0-2.0); ABG HCO3 26.4 mmol/L (22.0-26.0); ABG OXYGEN SATURATION 86.7 % (94-97); ABG PCO2 (T) 84.4 mmHg (32.0-45.0); ABG PO2 (T) 61.7 mmHg (75.0-100.0); ALLEN'S TEST POSITIVE; FCOHb 0.7 % (0.0-3.9); FMetHb 0.5 % (0.0-1.5); FO2Hb 85.7 % (94-97); PEEP 12 cm H2O; RESPIRATORY RATE 32 b/min; TIDAL VOLUME 325 mL; TOTAL HEMOGLOBIN 12.8 G/dl (12.0-16.0)
--- NOTE | 2020-12-19 06:33 | NUR ---
Patient in room CICU 2008. I have received report from Leticia SMITH and had the opportunity to ask questions and assume patient care.
--- NOTE | 2020-12-19 06:34 | NUR ---
Problems reprioritized. Patient report given, questions answered & plan of care reviewed with Yoanna SMITH.
[2020-12-19 06:40] LABS: PLATELET ESTIMATE INCREASED; TOTAL CELLS COUNTED 100
[2020-12-19] MEDS: venlafaxine XR 37.5mg cap (Q24H) PO SCH (07:12)
[2020-12-19] MEDS: lactose-reduced food (Ensure Enlive) - 237ml bottle PO SCH ×2 (07:12→17:05)
[2020-12-19] MEDS: docusate sod 100mg capsule PO SCH (07:12)
[2020-12-19] MEDS: psyllium seed 3.4 gm packet PO SCH (07:12)
[2020-12-19] MEDS: pantoprazole 40 MG vial IV SCH (07:23)
[2020-12-19] MEDS: methylPREDNISolone sod succ/PF 40mg inj. IV SCH ×2 (07:23→15:13)
[2020-12-19] MEDS: nicotine 21mg patch - 24 hr TD SCH (07:24)
[2020-12-19] MEDS: enoxaparin 40mg/0.4ml syringe SUBCUT SCH ×2 (07:24→20:03)
[2020-12-19] MEDS: NORepinephrine 8mg/ 250ml NS 250 ML IV PRN ×2 (07:29→16:54)
[2020-12-19] MEDS: amLODIPine 5mg tablet PO SCH (07:29)
[2020-12-19] MEDS: K and/or MAG REPLACEMENT MC SCH ×2 (07:33→20:00)
--- NOTE | 2020-12-19 08:31 | NUR ---
Informed Dr. Kwok of WBC 26.1, HR 120s-130s. Received orders for antibiotics and lopressor for HR.
[2020-12-19] MEDS ORDERED: cefepime 1GM/NS ADD-VANTAGE 100 ML IV SCH (08:35)
[2020-12-19] MEDS: CISatracurium besylate inj. 100 MG in normal saline 100ml IV soln 90 ML IV PRN ×4 (08:56→22:07)
[2020-12-19] MEDS: metoprolol tartrate 1mg/ml inj IV PRN (08:58)
[2020-12-19] MEDS: ZINC/COPPER/MANGANESE/SELENIUM 0.5 ML, chromic chloride inj. 5 MCG in AA 5%/CALCIUM/LYT... IV SCH (09:53)
[2020-12-19] MEDS: vancomycin/NS 1 GM ADD-VANTAGE 250 ML IV SCH ×2 (10:43→21:28)
[2020-12-19 10:49] LABS: CLARITY,URINE CLOUDY (Clear); COLOR,URINE YELLOW (Yellow); UA COLLECTION TYPE FOLEY CATH
[2020-12-19 10:50] LABS: GLUCOSE, URINE NEGATIVE (Neg); KETONES,URINE NEGATIVE (Neg); LEUKOCYTE ESTERASE ,URINE NEGATIVE (Neg); NITRITES, URINE NEGATIVE (Neg); OCCULT BLOOD,URINE MODERATE (Neg); PROTEIN,URINE 100 mg/dl (Neg)
[2020-12-19 10:53] LABS: AMORPHOUS URATES 1+; BACTERIA,URINE 3+ /HPF (Neg); SQUAMOUS EPITHELIAL CELL,UR NONE SEEN /LPF (FEW)
[2020-12-19] MEDS: cefepime 2g/NS 100ml ADVANTAGE 100 ML IV SCH ×2 (11:05→20:03)
[2020-12-19] MEDS: mineral oil/petrolatum ophthal oint EACHEYE SCH ×2 (13:09→20:21)
--- NOTE | 2020-12-19 18:24 | NUR ---
Problems reprioritized. Patient report given, questions answered & plan of care reviewed with Jordan SMITH.
--- NOTE | 2020-12-19 18:30 | NUR ---
Patient in room CICU 2008. I have received report from Yoanna SMITH and had the opportunity to ask questions and assume patient care.
[2020-12-19] MEDS: docusate sodium 100mg/10ml UD cup PO SCH (20:03)
[2020-12-19] MEDS ORDERED: VANCOMYCIN LEVEL IV ONE (20:30)
[2020-12-19] MEDS: insulin glargine (Lantus) pen - multi-dose SQ SCH (21:00)
[2020-12-19] MEDS: fat emulsion 20% inj. 100 ML IV SCH (21:17)
[2020-12-20] VITALS (29 sets, daily range): BP systolic 78–130; BP diastolic 45–74
[2020-12-20] MEDS: midazolam 100mg in NS 100ml 100 ML IV PRN ×3 (00:04→16:45)
[2020-12-20] MEDS: methylPREDNISolone sod succ/PF 40mg inj. IV SCH ×3 (00:04→15:48)
[2020-12-20] MEDS: DEXMEDETOMIDINE 400MCG in NORMAL SALINE 100ml IV SCH ×2 (00:26→16:49)
[2020-12-20] MEDS: ZINC/COPPER/MANGANESE/SELENIUM 0.5 ML, chromic chloride inj. 5 MCG in AA 5%/CALCIUM/LYT... IV SCH (01:04)
[2020-12-20] MEDS: FENTANYL-0.9 % NACL/PF 100 ML IV PRN ×5 (01:14→16:44)
[2020-12-20] MEDS: mineral oil/petrolatum ophthal oint EACHEYE SCH ×4 (02:34→22:18)
[2020-12-20 02:50] LABS: ABG OXYGEN SATURATION 94.4 % (94-97); ABG PCO2 (T) 75.4 mmHg (32.0-45.0); ABG PO2 (T) 72.8 mmHg (75.0-100.0); ALLEN'S TEST POSITIVE; FCOHb 0.5 % (0.0-3.9); FMetHb 0.3 % (0.0-1.5); FO2Hb 93.6 % (94-97); PATIENT TEMPERATURE 36.8; PEEP 12 cm H2O; RESPIRATORY RATE 32 b/min; TIDAL VOLUME 325 mL; TOTAL HEMOGLOBIN 11.4 G/dl (12.0-16.0)
[2020-12-20 03:27] LABS: BASOPHILS % (AUTO) 0.2 % (0-1); EOSINOPHILS % (AUTO) 0 % (0-6); HEMATOCRIT 32.4 % (35.0-45.0); HEMOGLOBIN 10.2 g/dl (12.0-16.0); LYMPHOCYTES # (AUTO) 0.6 X10'3 (1.1-4.8); LYMPHOCYTES % (AUTO) 2.8 % (21-51); MEAN CORPUSCULAR HEMOGLOBIN 28.1 PG (27.0-31.0); MEAN CORPUSCULAR HGB CONC 31.5 g/dL (33.0-36.5); MEAN CORPUSCULAR VOLUME 89.2 FL (78-98); MEAN PLATELET VOLUME 7.1 FL (7.4-10.4); MONOCYTES # (AUTO) 0.7 X10'3 (0-0.9); NEUTROPHILS # (AUTO) 20.9 X10'3 (1.8-7.7); PLATELET COUNT 388 X10'3 (140-440); RED BLOOD COUNT 3.63 X10'6 (4.20-5.60); WHITE BLOOD COUNT 22.2 X10'3 (4.5-11.0)
[2020-12-20 03:59] LABS: ALANINE AMINOTRANSFERASE 43 U/L (12-78); ALBUMIN 1.4 G/DL (3.4-5.0); ALBUMIN/GLOBULIN RATIO 0.3 (1.1-1.5); ALKALINE PHOSPHATASE 153 IU/L (46-116); ANION GAP 7 (8-16); ASPARTATE AMINO TRANSFERASE 22 U/L (10-37); BILIRUBIN,TOTAL 0.3 MG/DL (0.1-1.0); BLOOD UREA NITROGEN 28 MG/DL (7-18); BUN/CREATININE RATIO 32.2 (6.6-38.0); C-REACTIVE PROTEIN 19.71 MG/DL (0.0-0.5); CALCIUM 8.6 MG/DL (8.5-10.1); CHLORIDE 107 MMOL/L (99-107); CREATININE 0.87 MG/DL (0.40-0.90); GLUCOSE 143 MG/DL (70-104); MAGNESIUM 2.2 MG/DL (1.5-2.4); POTASSIUM 4.6 MMOL/L (3.5-5.1); PREALBUMIN 11.7 MG/DL (19-36); SODIUM 141 MMOL/L (135-145); TOTAL CARBON DIOXIDE 27.2 MMOL/L (24-32); TOTAL PROTEIN 5.8 G/DL (6.4-8.2); TRIGLYCERIDES 170 MG/DL (20-135); eGFR 66 ML/MIN
[2020-12-20] MEDS: NORepinephrine 8mg/ 250ml NS 250 ML IV PRN ×4 (04:37→20:55)
--- NOTE | 2020-12-20 06:19 | NUR ---
Problems reprioritized. Patient report given, questions answered & plan of care reviewed with Yoanna SMITH.
--- NOTE | 2020-12-20 06:31 | NUR ---
Patient in room CICU 2008. I have received report from Jordan SMITH and had the opportunity to ask questions and assume patient care.
[2020-12-20] MEDS: lactose-reduced food (Ensure Enlive) - 237ml bottle PO SCH ×2 (07:09→16:31)
[2020-12-20] MEDS: venlafaxine XR 37.5mg cap (Q24H) PO SCH (07:09)
[2020-12-20] MEDS: K and/or MAG REPLACEMENT MC SCH ×2 (07:10→20:00)
[2020-12-20] MEDS: psyllium seed 3.4 gm packet PO SCH (07:10)
[2020-12-20] MEDS: amLODIPine 5mg tablet PO SCH (07:10)
[2020-12-20] MEDS: cefepime 2g/NS 100ml ADVANTAGE 100 ML IV SCH ×2 (07:46→22:38)
[2020-12-20] MEDS: docusate sodium 100mg/10ml UD cup PO SCH ×2 (07:47→20:00)
[2020-12-20] MEDS: enoxaparin 40mg/0.4ml syringe SUBCUT SCH (07:47)
[2020-12-20] MEDS: pantoprazole 40 MG vial IV SCH (07:47)
[2020-12-20] MEDS: nicotine 21mg patch - 24 hr TD SCH (07:47)
[2020-12-20] MEDS: CISatracurium besylate inj. 100 MG in normal saline 100ml IV soln 90 ML IV PRN ×2 (08:11→16:50)
--- NOTE | 2020-12-20 08:27 | NUR ---
Informed Dr. Kwok of residual of 300 of blood pulled from [place]. MD ordered KUB, changed protonix to BID, and recheck hemogram. Also informed that residuals last night were high in the 700s and tube feed has been off since midnight.
[2020-12-20] MEDS: vancomycin/NS 1 GM ADD-VANTAGE 250 ML IV SCH ×2 (09:18→23:26)
--- NOTE | 2020-12-20 11:03 | NUR ---
Informed Dr. Coronado of positive blood culture-gram positive cocci in clusters and gram neg mahamed in urine. No change in orders.
[2020-12-20] MEDS ORDERED: bisacodyl 10mg suppository rectal RC ONE (11:30)
--- NOTE | 2020-12-20 11:50 | NUR ---
F/u 12/20: Pt TF advancing to goal at 50ml/hr however held last night for GRV 730ml w/ subsequent GRV's 250-300ml. Noted TPN restarted at 12.5ml/hr as well. ABHAY d/w manager talent who reports pt has two NG's in place neither post-pyloric and current GRV's no concern given volume of daily GI secretions. TPN to stop today w/ TF to resume advancing to goal. LBM 12/15 receiving routine colace; dulcolax to start today for additional bowel care per MD. Will continue to monitor for TF tolerance and adjustment needs on vent. Recommend: 1. Continuous TF per MD using Vital AF at 60ml/hr goal; to provide 1440ml volume, 1728 kcals, 1166ml water, and 108g protein. 2. TG/PALB Q /; daily wts 3. additional water flushes per manager talent; prior low serum Na 133 currently 141 this AM w/ EN held since last night 4. monitor for TF tolerances 5. routine bowel care; 5 days constipation Addendum: 12/20/20 at [address] Amended: Links added.
[2020-12-20 12:14] LABS: HEMATOCRIT 26.2 % (35.0-45.0); HEMOGLOBIN 8.3 g/dl (12.0-16.0); MEAN CORPUSCULAR HEMOGLOBIN 28.3 PG (27.0-31.0); MEAN CORPUSCULAR HGB CONC 31.6 g/dL (33.0-36.5); MEAN CORPUSCULAR VOLUME 89.5 FL (78-98); MEAN PLATELET VOLUME 6.7 FL (7.4-10.4); PLATELET COUNT 400 X10'3 (140-440); RED BLOOD COUNT 2.93 X10'6 (4.20-5.60)
--- NOTE | 2020-12-20 13:02 | NUR ---
Informed Dr. Kwok of drop in H&H to 8.3/26.2 from 10.2/32, aspirated 70ml bloody gastric residual this afternoon. MD to consult with athletic monitor GI DrHannah and ordered protonix drip.
--- NOTE | 2020-12-20 14:30 | NUR ---
Informed Dr. Kwok of HR increasing to 130, BP dropping. MD performed bedside US of heart to determine if pt needs fluid volume. MD ordered to give lopressor to lower HR because US did not show that pt was volume depleted.
[2020-12-20] MEDS: metoprolol tartrate 1mg/ml inj IV PRN (15:08)
[2020-12-20] MEDS: pantoprazole 40MG/NS 100ML BAG 100 ML IV SCH ×2 (16:16→22:30)
[2020-12-20 17:56] LABS: MEAN CORPUSCULAR HEMOGLOBIN 28.2 PG (27.0-31.0); MEAN CORPUSCULAR HGB CONC 31.2 g/dL (33.0-36.5); MEAN CORPUSCULAR VOLUME 90.5 FL (78-98); PLATELET COUNT 490 X10'3 (140-440); RED BLOOD COUNT 1.87 X10'6 (4.20-5.60); RED CELL DISTRIBUTION WIDTH 14.7 % (11.5-14.5); WHITE BLOOD COUNT 22.2 X10'3 (4.5-11.0)
[2020-12-20 17:58] LABS: HEMATOCRIT 16.9 % (35.0-45.0); HEMOGLOBIN 5.3 g/dl (12.0-16.0)
--- NOTE | 2020-12-20 18:28 | NUR ---
MD informed of drop in H&H to 5.3/16.9, BP 86/47, HR 141, maxed on levophed. MD called Dr. Wyman for EGD, 3units of PRBCs, PT/INR, and 500 NS Bolus.
--- NOTE | 2020-12-20 18:29 | NUR ---
Problems reprioritized. Patient report given, questions answered & plan of care reviewed with Jordan SMITH.
--- NOTE | 2020-12-20 18:30 | NUR ---
Patient in room CICU 2008. I have received report from Yoanna SMITH and had the opportunity to ask questions and assume patient care. Patient currently tachycardic with HR in 140s, BP 93/51 with levophed running at max rate and 1 L bolus of NS infusing as well. MD Kwok at bedside, order received by daytime RN to infuse 3 units PRBC STAT. Will call daughter Inés to obtain verbal consent over phone. Will continue to monitor patient.
[2020-12-20] MEDS ORDERED: pantoprazole 40 MG vial IV SCH (20:00)
[2020-12-20] MEDS ORDERED: albumin (Human) 5% 250ml 250 ML IV ONE ×4 (20:25)
[2020-12-20] MEDS ORDERED: albumin (Human) 5% 250ml 1,000 ML IV ONE (20:26)
[2020-12-20] MEDS ORDERED: VANCOMYCIN LEVEL IV ONE (20:30)
[2020-12-20] MEDS ORDERED: desmopressin inj. 24 MCG in normal saline 100ml IV soln 94 ML IV ONE (20:50)
[2020-12-20] MEDS ORDERED: tranexamic acid 1gm/0.7% sal. 100 ML IV ONE (20:50)
[2020-12-20] MEDS: vasopressin inj. 40 UNIT in normal saline 50ml IV soln 38 ML IV SCH (20:51)
[2020-12-20] MEDS: insulin glargine (Lantus) pen - multi-dose SQ SCH (21:00)
[2020-12-20 23:19] LABS: HEMATOCRIT 27.5 % (35.0-45.0); MEAN CORPUSCULAR HEMOGLOBIN 30.2 PG (27.0-31.0); MEAN CORPUSCULAR HGB CONC 32.8 g/dL (33.0-36.5); MEAN CORPUSCULAR VOLUME 92.1 FL (78-98); MEAN PLATELET VOLUME 7.1 FL (7.4-10.4); PLATELET COUNT 236 X10'3 (140-440); RED BLOOD COUNT 2.98 X10'6 (4.20-5.60); RED CELL DISTRIBUTION WIDTH 14.7 % (11.5-14.5); WHITE BLOOD COUNT 19.2 X10'3 (4.5-11.0)
[2020-12-20 23:49] LABS: ABG BASE EXCESS -16.2 mmol/L (-2.0-2.0); ABG HCO3 16.3 mmol/L (22.0-26.0); ABG OXYGEN SATURATION 66.7 % (94-97); ABG PCO2 (T) 79.1 mmHg (32.0-45.0); ABG PO2 (T) 39.3 mmHg (75.0-100.0); ALLEN'S TEST POSITIVE; FCOHb 0.1 % (0.0-3.9); FMetHb 0.4 % (0.0-1.5); FO2Hb 66.4 % (94-97); TIDAL VOLUME 325 mL; TOTAL HEMOGLOBIN 10.2 G/dl (12.0-16.0)
[2020-12-21] VITALS (31 sets, daily range): BP systolic 88–139; BP diastolic 52–87
[2020-12-21] MEDS: pantoprazole 40MG/NS 100ML BAG 100 ML IV SCH ×5 (01:00→18:51)
[2020-12-21] MEDS: midazolam 100mg in NS 100ml 100 ML IV PRN ×4 (01:10→23:22)
[2020-12-21] MEDS: methylPREDNISolone sod succ/PF 40mg inj. IV SCH ×3 (01:10→19:55)
[2020-12-21] MEDS: mineral oil/petrolatum ophthal oint EACHEYE SCH ×4 (02:45→19:55)
[2020-12-21] MEDS: NORepinephrine 8mg/ 250ml NS 250 ML IV PRN ×3 (02:46→14:37)
[2020-12-21 03:32] LABS: BASOPHILS % (AUTO) 0.2 % (0-1); EOSINOPHILS % (AUTO) 0 % (0-6); HEMATOCRIT 27.5 % (35.0-45.0); HEMOGLOBIN 9.1 g/dl (12.0-16.0); LYMPHOCYTES # (AUTO) 1.3 X10'3 (1.1-4.8); MEAN CORPUSCULAR HEMOGLOBIN 30.5 PG (27.0-31.0); MEAN CORPUSCULAR VOLUME 92.5 FL (78-98); MONOCYTES # (AUTO) 1.2 X10'3 (0-0.9); NEUTROPHILS # (AUTO) 18.3 X10'3 (1.8-7.7); WHITE BLOOD COUNT 20.9 X10'3 (4.5-11.0)
[2020-12-21 03:33] LABS: LYMPHOCYTES % (AUTO) 6.4 % (21-51); MONOCYTES % (AUTO) 5.7 % (2-12); NEUTROPHILS % (AUTO) 87.7 % (42-75); PLATELET COUNT 239 X10'3 (140-440); RED BLOOD COUNT 2.97 X10'6 (4.20-5.60); RED CELL DISTRIBUTION WIDTH 14.3 % (11.5-14.5)
[2020-12-21 03:43] LABS: D-DIMER 1.16 MG/L FEU (0-0.50)
[2020-12-21 03:45] LABS: ABG BASE EXCESS -12.6 mmol/L (-2.0-2.0); ABG HCO3 17.5 mmol/L (22.0-26.0); ABG OXYGEN SATURATION 94.8 % (94-97); ABG PCO2 (T) 60.4 mmHg (32.0-45.0); ABG PO2 (T) 72.9 mmHg (75.0-100.0); ALLEN'S TEST Modified; FCOHb 0.4 % (0.0-3.9); FMetHb 0.1 % (0.0-1.5); FO2Hb 94.3 % (94-97); PATIENT TEMPERATURE 36.5; PEEP 10 cm H2O; RESPIRATORY RATE 32 b/min; TIDAL VOLUME 400 mL; TOTAL HEMOGLOBIN 10.2 G/dl (12.0-16.0)
[2020-12-21 03:48] LABS: ALANINE AMINOTRANSFERASE 55 U/L (12-78); ALBUMIN 2.7 G/DL (3.4-5.0); ALBUMIN/GLOBULIN RATIO 1.2 (1.1-1.5); ALKALINE PHOSPHATASE 75 IU/L (46-116); ANION GAP 5 (8-16); ASPARTATE AMINO TRANSFERASE 41 U/L (10-37); BILIRUBIN,TOTAL 0.5 MG/DL (0.1-1.0); BLOOD UREA NITROGEN 39 MG/DL (7-18); BUN/CREATININE RATIO 36.4 (6.6-38.0); CALCIUM 6.9 MG/DL (8.5-10.1); CHLORIDE 112 MMOL/L (99-107); CREATININE 1.07 MG/DL (0.40-0.90); GLUCOSE 161 MG/DL (70-104); MAGNESIUM 1.7 MG/DL (1.5-2.4); PHOSPHORUS 4.2 MG/DL (2.3-4.5); POTASSIUM 4.4 MMOL/L (3.5-5.1); SODIUM 134 MMOL/L (135-145); TOTAL CARBON DIOXIDE 16.9 MMOL/L (24-32); TOTAL PROTEIN 4.9 G/DL (6.4-8.2); eGFR 52 ML/MIN
[2020-12-21] MEDS: CISatracurium besylate inj. 100 MG in normal saline 100ml IV soln 90 ML IV PRN ×2 (04:43→20:32)
[2020-12-21 04:44] LABS: NUCLEATED RED BLOOD CELLS 1 /100WBC (0-0); PLATELET ESTIMATE NORMAL; TOTAL CELLS COUNTED 100
[2020-12-21 04:45] LABS: BURR CELLS 1+
[2020-12-21] MEDS ORDERED: CALCIUM GLUC 1gm/50ml NACL,iso 50 ML IV ONE (05:05)
--- NOTE | 2020-12-21 06:00 | NUR ---
Patient in room CICU 2008. I have received report from Jordan SMITH and had the opportunity to ask questions and assume patient care.
--- NOTE | 2020-12-21 06:28 | NUR ---
Problems reprioritized. Patient report given, questions answered & plan of care reviewed with Yoanna SMITH.
[2020-12-21] MEDS: lactose-reduced food (Ensure Enlive) - 237ml bottle PO SCH ×2 (07:16→17:01)
[2020-12-21] MEDS: docusate sodium 100mg/10ml UD cup PO SCH ×2 (07:17→19:55)
[2020-12-21] MEDS: K and/or MAG REPLACEMENT MC SCH ×2 (07:17→19:55)
[2020-12-21] MEDS: psyllium seed 3.4 gm packet PO SCH (07:17)
[2020-12-21] MEDS: amLODIPine 5mg tablet PO SCH (07:17)
[2020-12-21] MEDS: venlafaxine XR 37.5mg cap (Q24H) PO SCH (07:17)
[2020-12-21] MEDS: cefepime 2g/NS 100ml ADVANTAGE 100 ML IV SCH ×2 (07:43→19:55)
[2020-12-21] MEDS: DEXMEDETOMIDINE 400MCG in NORMAL SALINE 100ml IV SCH ×2 (07:43→23:30)
[2020-12-21] MEDS: FENTANYL-0.9 % NACL/PF 100 ML IV PRN ×2 (07:44→19:08)
[2020-12-21] MEDS: nicotine 21mg patch - 24 hr TD SCH (07:44)
[2020-12-21 07:51] LABS: PARTIAL THROMBOPLASTIN TIME 27 SECONDS (22-32)
[2020-12-21] MEDS ORDERED: MVI, adult No.4 with vit. K 10 ML in dextrose 5% water 500ml 500 ML IV SCH ×2 (08:00)
[2020-12-21] MEDS: vancomycin/NS 1 GM ADD-VANTAGE 250 ML IV SCH ×2 (09:18→20:58)
[2020-12-21 09:51] LABS: ABG BASE EXCESS -13.4 mmol/L (-2.0-2.0); ABG HCO3 16.1 mmol/L (22.0-26.0); ABG OXYGEN SATURATION 91.1 % (94-97); ABG PCO2 (T) 53.9 mmHg (32.0-45.0); ABG PO2 (T) 63.8 mmHg (75.0-100.0); FCOHb 0.3 % (0.0-3.9); FMetHb 0.3 % (0.0-1.5); FO2Hb 90.6 % (94-97); PATIENT TEMPERATURE 36.5; PEEP 10 cm H2O; RESPIRATORY RATE 32 b/min; TIDAL VOLUME 415 mL; TOTAL HEMOGLOBIN 9.6 G/dl (12.0-16.0)
[2020-12-21 10:02] LABS: HEMATOCRIT 22.8 % (35.0-45.0); MEAN CORPUSCULAR HEMOGLOBIN 30.4 PG (27.0-31.0); MEAN CORPUSCULAR HGB CONC 33.1 g/dL (33.0-36.5); MEAN CORPUSCULAR VOLUME 91.9 FL (78-98); MEAN PLATELET VOLUME 7.1 FL (7.4-10.4); PLATELET COUNT 181 X10'3 (140-440); RED BLOOD COUNT 2.48 X10'6 (4.20-5.60); WHITE BLOOD COUNT 13.4 X10'3 (4.5-11.0)
[2020-12-21 10:04] LABS: HEMOGLOBIN 7.6 g/dl (12.0-16.0)
[2020-12-21] MEDS ORDERED: sodium bicarbonate (8.4%) inj. 100 MEQ in dextrose 5%-water 1,000 ML IV SCH (11:45)
--- NOTE | 2020-12-21 12:09 | NUR ---
F/u 12/21: Pt TF currently held for GIB s/p scope revealing large volume of blood/TF/clots in stomach however no source of bleeding per MD note. Reglan to start today to assist in gastric emptying per MD. OG/NG removed during procedure w/ OG placed back in stomach to suction per MD note. Still no BM 6 days received routine colace prior to NPO status. Will monitor for GI status and EN restarting as medically indicated. IF GI compromise persists may benefit from PN to meet needs. Recommend: 1. IF TF resumes; Continuous TF per MD using Vital AF at 60ml/hr goal; to provide 1440ml volume, 1728 kcals, 1166ml water, and 108g protein. 2. TG/PALB Q /; daily wts 3. additional water flushes per sign hanger supervisor; low serum Na 134 4. monitor for TF tolerances once restarted 5. routine bowel care; 6 days constipation; promotility agent per MD Addendum: 12/21/20 at [address] Amended: Links added.
[2020-12-21] MEDS: metoclopramide 5 mg/ml inj IV SCH ×2 (13:13→19:54)
[2020-12-21 14:07] LABS: HEMOGLOBIN 10.1 g/dl (12.0-16.0); MEAN CORPUSCULAR HEMOGLOBIN 30.9 PG (27.0-31.0); MEAN CORPUSCULAR HGB CONC 33.6 g/dL (33.0-36.5); MEAN PLATELET VOLUME 7.2 FL (7.4-10.4); PLATELET COUNT 160 X10'3 (140-440); RED BLOOD COUNT 3.26 X10'6 (4.20-5.60); RED CELL DISTRIBUTION WIDTH 14.9 % (11.5-14.5); WHITE BLOOD COUNT 13.5 X10'3 (4.5-11.0)
--- NOTE | 2020-12-21 14:31 | NUR ---
Spoke with Daughter Inés over the phone and gave update on pts condition.
[2020-12-21 14:59] LABS: ABG BASE EXCESS -14.8 mmol/L (-2.0-2.0); ABG OXYGEN SATURATION 92.2 % (94-97); ABG PCO2 (T) 60.1 mmHg (32.0-45.0); ABG PO2 (T) 70.5 mmHg (75.0-100.0); FCOHb 0.8 % (0.0-3.9); FMetHb 0.4 % (0.0-1.5); FO2Hb 91.1 % (94-97); PEEP 10 cm H2O; RESPIRATORY RATE 32 b/min; TIDAL VOLUME 408 mL
[2020-12-21] MEDS ORDERED: sodium bicarbonate (8.4%) 1 mEq/ml syringe IV ONE (15:10)
--- NOTE | 2020-12-21 18:15 | NUR ---
Patient in room CICU 2008. I have received report from Yoanna SMITH and had the opportunity to ask questions and assume patient care.
--- NOTE | 2020-12-21 18:21 | NUR ---
Problems reprioritized. Patient report given, questions answered & plan of care reviewed with Jordan SMITH.
[2020-12-21 18:44] LABS: HEMATOCRIT 33.8 % (35.0-45.0); HEMOGLOBIN 11.6 g/dl (12.0-16.0); MEAN CORPUSCULAR HEMOGLOBIN 29.8 PG (27.0-31.0); MEAN CORPUSCULAR HGB CONC 34.3 g/dL (33.0-36.5); MEAN CORPUSCULAR VOLUME 86.9 FL (78-98); MEAN PLATELET VOLUME 7.2 FL (7.4-10.4); PLATELET COUNT 156 X10'3 (140-440); RED BLOOD COUNT 3.88 X10'6 (4.20-5.60); RED CELL DISTRIBUTION WIDTH 16.8 % (11.5-14.5); WHITE BLOOD COUNT 14.7 X10'3 (4.5-11.0)
[2020-12-21 19:50] LABS: ABG HCO3 19.2 mmol/L (22.0-26.0); ABG OXYGEN SATURATION 93.8 % (94-97); ABG PCO2 (T) 55.6 mmHg (32.0-45.0); ABG PO2 (T) 70.7 mmHg (75.0-100.0); FMetHb 0.3 % (0.0-1.5); FO2Hb 92.6 % (94-97); PATIENT TEMPERATURE 36.4; PEEP 10 cm H2O; RESPIRATORY RATE 32 b/min; TIDAL VOLUME 400 mL; TOTAL HEMOGLOBIN 12.7 G/dl (12.0-16.0)
[2020-12-21] MEDS: insulin glargine (Lantus) pen - multi-dose SQ SCH (20:59)
[2020-12-21 22:14] LABS: HEMATOCRIT 34.5 % (35.0-45.0); HEMOGLOBIN 11.8 g/dl (12.0-16.0); MEAN CORPUSCULAR HEMOGLOBIN 29.4 PG (27.0-31.0); MEAN CORPUSCULAR HGB CONC 34.1 g/dL (33.0-36.5); MEAN CORPUSCULAR VOLUME 86.4 FL (78-98); PLATELET COUNT 172 X10'3 (140-440); RED BLOOD COUNT 3.99 X10'6 (4.20-5.60); RED CELL DISTRIBUTION WIDTH 16.5 % (11.5-14.5); WHITE BLOOD COUNT 16.9 X10'3 (4.5-11.0)
[2020-12-22] VITALS (24 sets, daily range): BP systolic 84–130; BP diastolic 49–85
[2020-12-22] MEDS: NORepinephrine 8mg/ 250ml NS 250 ML IV PRN
[2020-12-22] MEDS: pantoprazole 40MG/NS 100ML BAG 100 ML IV SCH ×5 (01:10→21:21)
[2020-12-22] MEDS: mineral oil/petrolatum ophthal oint EACHEYE SCH ×4 (02:26→20:10)
[2020-12-22] MEDS: metoclopramide 5 mg/ml inj IV SCH ×4 (02:26→20:27)
[2020-12-22 02:44] LABS: EOSINOPHILS % (AUTO) 0 % (0-6); LYMPHOCYTES # (AUTO) 1.1 X10'3 (1.1-4.8)
[2020-12-22 02:46] LABS: BASOPHILS % (AUTO) 0.2 % (0-1); HEMATOCRIT 36.2 % (35.0-45.0); HEMOGLOBIN 12.1 g/dl (12.0-16.0); LYMPHOCYTES % (AUTO) 5.5 % (21-51); MEAN CORPUSCULAR HEMOGLOBIN 29.5 PG (27.0-31.0); MEAN CORPUSCULAR HGB CONC 33.4 g/dL (33.0-36.5); MEAN CORPUSCULAR VOLUME 88.4 FL (78-98); MEAN PLATELET VOLUME 7.3 FL (7.4-10.4); MONOCYTES # (AUTO) 0.9 X10'3 (0-0.9); MONOCYTES % (AUTO) 4.7 % (2-12); NEUTROPHILS # (AUTO) 17.9 X10'3 (1.8-7.7); NEUTROPHILS % (AUTO) 89.6 % (42-75); PLATELET COUNT 190 X10'3 (140-440); RED CELL DISTRIBUTION WIDTH 17.1 % (11.5-14.5)
[2020-12-22 02:56] LABS: D-DIMER 0.43 MG/L FEU (0-0.50)
[2020-12-22 02:57] LABS: ALBUMIN 2.3 G/DL (3.4-5.0); ANION GAP 10 (8-16); BLOOD UREA NITROGEN 54 MG/DL (7-18); C-REACTIVE PROTEIN 1.66 MG/DL (0.0-0.5); CALCIUM 7.9 MG/DL (8.5-10.1); CHLORIDE 116 MMOL/L (99-107); GLUCOSE 147 MG/DL (70-104); MAGNESIUM 1.9 MG/DL (1.5-2.4); POTASSIUM 4.4 MMOL/L (3.5-5.1); SODIUM 146 MMOL/L (135-145); TOTAL CARBON DIOXIDE 19.7 MMOL/L (24-32); eGFR 46 ML/MIN
[2020-12-22 04:07] LABS: ABG BASE EXCESS -10.1 mmol/L (-2.0-2.0); ABG HCO3 19.5 mmol/L (22.0-26.0); ABG OXYGEN SATURATION 94.4 % (94-97); ABG PCO2 (T) 57.8 mmHg (32.0-45.0); FCOHb 1.8 % (0.0-3.9); FMetHb 0.1 % (0.0-1.5); FO2Hb 92.6 % (94-97); PATIENT TEMPERATURE 36.3; PEEP 10 cm H2O; RESPIRATORY RATE 32 b/min; TIDAL VOLUME 400 mL; TOTAL HEMOGLOBIN 12.9 G/dl (12.0-16.0)
[2020-12-22] MEDS: FENTANYL-0.9 % NACL/PF 100 ML IV PRN ×3 (04:07→19:00)
[2020-12-22 04:43] LABS: ANISOCYTOSIS 1+; NUCLEATED RED BLOOD CELLS 1 /100WBC (0-0); PLATELET ESTIMATE NORMAL; POLYCHROMASIA FEW; TOTAL CELLS COUNTED 100
[2020-12-22] MEDS: midazolam 100mg in NS 100ml 100 ML IV PRN ×3 (05:31→19:00)
[2020-12-22 05:54] LABS: HEMATOCRIT 36.5 % (35.0-45.0); HEMOGLOBIN 12.2 g/dl (12.0-16.0); MEAN CORPUSCULAR HEMOGLOBIN 29.4 PG (27.0-31.0); MEAN CORPUSCULAR HGB CONC 33.5 g/dL (33.0-36.5); MEAN PLATELET VOLUME 7.2 FL (7.4-10.4); PLATELET COUNT 203 X10'3 (140-440); RED BLOOD COUNT 4.15 X10'6 (4.20-5.60); RED CELL DISTRIBUTION WIDTH 16.8 % (11.5-14.5); WHITE BLOOD COUNT 21.3 X10'3 (4.5-11.0)
[2020-12-22] MEDS: CISatracurium besylate inj. 100 MG in normal saline 100ml IV soln 90 ML IV PRN ×2 (06:08→16:03)
--- NOTE | 2020-12-22 06:26 | NUR ---
Problems reprioritized. Patient report given, questions answered & plan of care reviewed with day shift RN.
[2020-12-22] MEDS ORDERED: sodium bicarbonate (8.4%) 1 mEq/ml syringe IV ONE (07:25)
[2020-12-22] MEDS: psyllium seed 3.4 gm packet PO SCH (07:37)
[2020-12-22] MEDS: venlafaxine XR 37.5mg cap (Q24H) PO SCH (07:37)
[2020-12-22] MEDS: amLODIPine 5mg tablet PO SCH (07:37)
[2020-12-22] MEDS: K and/or MAG REPLACEMENT MC SCH ×2 (07:38→20:00)
[2020-12-22] MEDS: docusate sodium 100mg/10ml UD cup PO SCH ×2 (07:38→20:27)
[2020-12-22] MEDS: methylPREDNISolone sod succ/PF 40mg inj. IV SCH ×2 (08:12→20:27)
[2020-12-22] MEDS: vancomycin/NS 1 GM ADD-VANTAGE 250 ML IV SCH ×2 (08:13→20:27)
[2020-12-22] MEDS: cefepime 2g/NS 100ml ADVANTAGE 100 ML IV SCH (08:13)
[2020-12-22] MEDS: nicotine 21mg patch - 24 hr TD SCH (08:13)
[2020-12-22] MEDS: DEXMEDETOMIDINE 400MCG in NORMAL SALINE 100ml IV SCH ×2 (08:59→22:16)
[2020-12-22 10:11] LABS: ABG BASE EXCESS -5.4 mmol/L (-2.0-2.0); ABG HCO3 22.5 mmol/L (22.0-26.0); ABG OXYGEN SATURATION 92.1 % (94-97); ABG PCO2 (T) 53.6 mmHg (32.0-45.0); ABG PO2 (T) 62.9 mmHg (75.0-100.0); FCOHb 1.6 % (0.0-3.9); FMetHb 0.2 % (0.0-1.5); FO2Hb 90.4 % (94-97); PATIENT TEMPERATURE 36.6; PEEP 10 cm H2O; RESPIRATORY RATE 32 b/min; TIDAL VOLUME 410 mL; TOTAL HEMOGLOBIN 12.3 G/dl (12.0-16.0)
[2020-12-22 10:48] LABS: HEMATOCRIT 33.1 % (35.0-45.0); HEMOGLOBIN 11.4 g/dl (12.0-16.0); MEAN CORPUSCULAR HEMOGLOBIN 29.6 PG (27.0-31.0); MEAN CORPUSCULAR HGB CONC 34.3 g/dL (33.0-36.5); MEAN CORPUSCULAR VOLUME 86.4 FL (78-98); PLATELET COUNT 172 X10'3 (140-440); RED BLOOD COUNT 3.83 X10'6 (4.20-5.60); RED CELL DISTRIBUTION WIDTH 16.7 % (11.5-14.5); WHITE BLOOD COUNT 19.6 X10'3 (4.5-11.0)
--- NOTE | 2020-12-22 11:10 | NUR ---
F/u 12/22: Per MD at critical care rounds pt to resume TF at [facility] today, though per EMR pt still NPO. TC to RN who reports TF is not currently running, informed RN of MD request for [facility]. Noted pt with no BM since 12/15, d/w MD and multidisciplinary team at critical care rounds. Noted pt started on IV Reglan Q6H 12/21 for eight doses and with routine Colace available however held d/t NPO status. Will continue to follow closely. Recommendations: 1. Once MD okays advancing TF goal rate, continuous TF using Vital AF with 60 ml/hr goal to provide 1440 ml total volume/day, 1728 kcal, 1166 ml water, and 108 g protein. 2. Prealbumin q /; daily scaled wts 3. Additional water flushes per french polisher; previously low serum Na 4. Routine bowel care; 7 days constipation; promotility agent per MD Addendum: 12/22/20 at [address] Amended: Links added.
[2020-12-22] MEDS: CefTRIAXone 2gm/D5W 50ml BAG 50 ML IV SCH (12:42)
[2020-12-22 19:38] LABS: HEMATOCRIT 33.4 % (35.0-45.0); HEMOGLOBIN 11.2 g/dl (12.0-16.0); MEAN CORPUSCULAR HEMOGLOBIN 29.4 PG (27.0-31.0); MEAN CORPUSCULAR HGB CONC 33.7 g/dL (33.0-36.5); MEAN CORPUSCULAR VOLUME 87.3 FL (78-98); PLATELET COUNT 166 X10'3 (140-440); RED BLOOD COUNT 3.82 X10'6 (4.20-5.60); RED CELL DISTRIBUTION WIDTH 16.6 % (11.5-14.5); WHITE BLOOD COUNT 20.3 X10'3 (4.5-11.0)
[2020-12-22] MEDS: vasopressin inj. 40 UNIT in normal saline 50ml IV soln 38 ML IV SCH (20:30)
[2020-12-22] MEDS: insulin glargine (Lantus) pen - multi-dose SQ SCH (20:45)
[2020-12-23] VITALS (24 sets, daily range): BP systolic 98–143; BP diastolic 61–77
[2020-12-23] MEDS: pantoprazole 40MG/NS 100ML BAG 100 ML IV SCH ×5 (02:26→21:42)
[2020-12-23] MEDS: CISatracurium besylate inj. 100 MG in normal saline 100ml IV soln 90 ML IV PRN ×2 (02:29→13:30)
[2020-12-23] MEDS: mineral oil/petrolatum ophthal oint EACHEYE SCH ×4 (02:29→20:00)
[2020-12-23] MEDS: metoclopramide 5 mg/ml inj IV SCH ×2 (02:29→08:00)
[2020-12-23 03:26] LABS: EOSINOPHILS % (AUTO) 0 % (0-6); MEAN PLATELET VOLUME 7.3 FL (7.4-10.4); MONOCYTES # (AUTO) 0.9 X10'3 (0-0.9); RED BLOOD COUNT 3.88 X10'6 (4.20-5.60)
[2020-12-23 03:28] LABS: BASOPHILS % (AUTO) 0.1 % (0-1); HEMATOCRIT 33.8 % (35.0-45.0); HEMOGLOBIN 11.4 g/dl (12.0-16.0); LYMPHOCYTES # (AUTO) 0.8 X10'3 (1.1-4.8); LYMPHOCYTES % (AUTO) 3.3 % (21-51); MEAN CORPUSCULAR HEMOGLOBIN 29.4 PG (27.0-31.0); MEAN CORPUSCULAR HGB CONC 33.8 g/dL (33.0-36.5); MONOCYTES % (AUTO) 3.6 % (2-12); NEUTROPHILS # (AUTO) 23.7 X10'3 (1.8-7.7); PLATELET COUNT 183 X10'3 (140-440)
[2020-12-23 03:41] LABS: D-DIMER 0.75 MG/L FEU (0-0.50)
[2020-12-23 03:42] LABS: ALBUMIN 2.1 G/DL (3.4-5.0); ANION GAP 9 (8-16); BLOOD UREA NITROGEN 65 MG/DL (7-18); BUN/CREATININE RATIO 51.2 (6.6-38.0); C-REACTIVE PROTEIN 0.77 MG/DL (0.0-0.5); CALCIUM 8.4 MG/DL (8.5-10.1); CHLORIDE 116 MMOL/L (99-107); CREATININE 1.27 MG/DL (0.40-0.90); GLUCOSE 161 MG/DL (70-104); MAGNESIUM 2.1 MG/DL (1.5-2.4); PHOSPHORUS 3.8 MG/DL (2.3-4.5); POTASSIUM 4.1 MMOL/L (3.5-5.1); SODIUM 148 MMOL/L (135-145); TOTAL CARBON DIOXIDE 22.8 MMOL/L (24-32); TRIGLYCERIDES 383 MG/DL (20-135); eGFR 43 ML/MIN
[2020-12-23 03:59] LABS: WHITE BLOOD COUNT 25.5 X10'3 (4.5-11.0)
[2020-12-23 04:02] LABS: ANISOCYTOSIS 1+; NUCLEATED RED BLOOD CELLS 1 /100WBC (0-0); PLATELET ESTIMATE NORMAL; POLYCHROMASIA FEW; TOTAL CELLS COUNTED 100
[2020-12-23] MEDS: FENTANYL-0.9 % NACL/PF 100 ML IV PRN ×3 (04:35→23:51)
[2020-12-23 04:52] LABS: ABG HCO3 22.8 mmol/L (22.0-26.0); ABG PCO2 (T) 60.9 mmHg (32.0-45.0); FMetHb 0.3 % (0.0-1.5); FO2Hb 88.9 % (94-97); PEEP 10 cm H2O; RESPIRATORY RATE 32 b/min; TIDAL VOLUME 400 mL; TOTAL HEMOGLOBIN 12.2 G/dl (12.0-16.0)
--- NOTE | 2020-12-23 06:30 | NUR ---
Patient in room CICU 2008. I have received report from katlin and had the opportunity to ask questions and assume patient care.
[2020-12-23] MEDS: amLODIPine 5mg tablet PO SCH (08:00)
[2020-12-23] MEDS: docusate sodium 100mg/10ml UD cup PO SCH ×2 (08:00→21:41)
[2020-12-23] MEDS: K and/or MAG REPLACEMENT MC SCH ×2 (08:00→20:00)
[2020-12-23] MEDS: methylPREDNISolone sod succ/PF 40mg inj. IV SCH ×2 (09:44→21:38)
[2020-12-23] MEDS: vancomycin/NS 1 GM ADD-VANTAGE 250 ML IV SCH ×2 (09:44→21:46)
[2020-12-23] MEDS: CefTRIAXone 2gm/D5W 50ml BAG 50 ML IV SCH (09:44)
[2020-12-23] MEDS: venlafaxine XR 37.5mg cap (Q24H) PO SCH (09:45)
[2020-12-23] MEDS: psyllium seed 3.4 gm packet PO SCH (09:45)
[2020-12-23] MEDS: nicotine 21mg patch - 24 hr TD SCH (09:50)
--- NOTE | 2020-12-23 11:56 | NUR ---
TF consult: TC to RN who reports MD would like TF to be slowly advanced. D/w RN recommendation to advance TF by 20 mL Q8H as tolerated to previously recommended goal rate of 60 mL/hr using Vital AF. RN confirms still no BM, MD notified at critical care rounds. Pt pending KUB at this time. Pt continues receiving routine Colace and Metamucil with PRN MoM available last given 12/11. Pt no longer receiving routine Reglan. Will continue to follow closely and make recommendations as appropriate. Recommendations: 1. Continuous TF via OGT using Vital AF with 60 mL/hr goal to provide 1440 mL total volume/day, 1728 kcal, 1166 mL water, and 108 g protein 2. Prealbumin q /; daily scaled wts 3. Additional water flushes per geological drafter; previously low serum Na 4. Routine bowel care; 8 days constipation Addendum: 12/23/20 at [address] Amended: Links added.
[2020-12-23] MEDS: midazolam 100mg in NS 100ml 100 ML IV PRN ×2 (13:34→20:08)
[2020-12-23] MEDS: DEXMEDETOMIDINE 400MCG in NORMAL SALINE 100ml IV SCH (14:15)
[2020-12-23 14:52] LABS: ABG BASE EXCESS -6.5 mmol/L (-2.0-2.0); ABG HCO3 21.9 mmol/L (22.0-26.0); ABG OXYGEN SATURATION 87.9 % (94-97); ABG PCO2 (T) 54.7 mmHg (32.0-45.0); ABG PO2 (T) 54.4 mmHg (75.0-100.0); FCOHb 2.4 % (0.0-3.9); FMetHb 0.3 % (0.0-1.5); FO2Hb 85.5 % (94-97); PATIENT TEMPERATURE 36.2; PEEP 10 cm H2O; RESPIRATORY RATE 32 b/min; TIDAL VOLUME 401 mL; TOTAL HEMOGLOBIN 12.2 G/dl (12.0-16.0)
--- NOTE | 2020-12-23 15:08 | NUR ---
dr díaz in frequently to check on pt.- KUB, LA, ABG ORDERED. update to family. pt paralyzed and sedated. able to decrease levophed down and off.
[2020-12-23] MEDS: heparin, porcine 5000 units/ml vial SQ SCH (16:57)
[2020-12-23] MEDS: insulin glargine (Lantus) pen - multi-dose SQ SCH (21:00)
[2020-12-24] VITALS (24 sets, daily range): BP systolic 106–159; BP diastolic 62–91
[2020-12-24 02:11] LABS: D-DIMER 0.58 MG/L FEU (0-0.50)
[2020-12-24 02:12] LABS: ALBUMIN 2.1 G/DL (3.4-5.0); ANION GAP 9 (8-16); BLOOD UREA NITROGEN 70 MG/DL (7-18); BUN/CREATININE RATIO 58.3 (6.6-38.0); C-REACTIVE PROTEIN 0.62 MG/DL (0.0-0.5); CALCIUM 8.8 MG/DL (8.5-10.1); CHLORIDE 118 MMOL/L (99-107); GLUCOSE 139 MG/DL (70-104); MAGNESIUM 2.1 MG/DL (1.5-2.4); PHOSPHORUS 3.2 MG/DL (2.3-4.5); POTASSIUM 3.9 MMOL/L (3.5-5.1); SODIUM 150 MMOL/L (135-145); TOTAL CARBON DIOXIDE 22.7 MMOL/L (24-32); eGFR 46 ML/MIN
[2020-12-24 02:15] LABS: BASOPHILS # (AUTO) 0.1 X10'3 (0-0.2); BASOPHILS % (AUTO) 0.3 % (0-1); EOSINOPHILS % (AUTO) 0 % (0-6); HEMATOCRIT 32.9 % (35.0-45.0); HEMOGLOBIN 11.1 g/dl (12.0-16.0); LYMPHOCYTES # (AUTO) 0.7 X10'3 (1.1-4.8); LYMPHOCYTES % (AUTO) 3.5 % (21-51); MEAN CORPUSCULAR HEMOGLOBIN 29.8 PG (27.0-31.0); MEAN CORPUSCULAR HGB CONC 33.8 g/dL (33.0-36.5); MEAN CORPUSCULAR VOLUME 88.2 FL (78-98); MEAN PLATELET VOLUME 7.5 FL (7.4-10.4); MONOCYTES # (AUTO) 0.6 X10'3 (0-0.9); MONOCYTES % (AUTO) 3.1 % (2-12); NEUTROPHILS # (AUTO) 18.6 X10'3 (1.8-7.7); NEUTROPHILS % (AUTO) 93.1 % (42-75); PLATELET COUNT 186 X10'3 (140-440); RED BLOOD COUNT 3.73 X10'6 (4.20-5.60); RED CELL DISTRIBUTION WIDTH 16.8 % (11.5-14.5)
[2020-12-24] MEDS: heparin, porcine 5000 units/ml vial SQ SCH ×3 (02:48→17:38)
[2020-12-24] MEDS: mineral oil/petrolatum ophthal oint EACHEYE SCH ×4 (02:53→20:00)
[2020-12-24 03:27] LABS: ABG BASE EXCESS -6.9 mmol/L (-2.0-2.0); ABG HCO3 21.1 mmol/L (22.0-26.0); ABG OXYGEN SATURATION 93.8 % (94-97); ABG PCO2 (T) 53.4 mmHg (32.0-45.0); ABG PO2 (T) 73.7 mmHg (75.0-100.0); FCOHb 2.1 % (0.0-3.9); FMetHb 0.3 % (0.0-1.5); FO2Hb 91.5 % (94-97); PEEP 10 cm H2O; RESPIRATORY RATE 32 b/min; TIDAL VOLUME 400 mL; TOTAL HEMOGLOBIN 11.6 G/dl (12.0-16.0)
[2020-12-24] MEDS: pantoprazole 40MG/NS 100ML BAG 100 ML IV SCH ×5 (04:51→19:29)
[2020-12-24] MEDS: DEXMEDETOMIDINE 400MCG in NORMAL SALINE 100ml IV SCH ×2 (04:52→19:30)
[2020-12-24 05:08] LABS: NUCLEATED RED BLOOD CELLS 3 /100WBC (0-0); TOTAL CELLS COUNTED 100
[2020-12-24 05:11] LABS: ANISOCYTOSIS 1+; PLATELET ESTIMATE NORMAL; POLYCHROMASIA FEW; SMUDGE CELLS 1+
--- NOTE | 2020-12-24 06:30 | NUR ---
Patient in room CICU 2008. I have received report from KIM and had the opportunity to ask questions and assume patient care.
[2020-12-24] MEDS: amLODIPine 5mg tablet PO SCH (08:00)
[2020-12-24] MEDS: K and/or MAG REPLACEMENT MC SCH ×2 (08:00→20:00)
[2020-12-24] MEDS: midazolam 100mg in NS 100ml 100 ML IV PRN (08:05)
[2020-12-24] MEDS: CefTRIAXone 2gm/D5W 50ml BAG 50 ML IV SCH (08:07)
[2020-12-24] MEDS: FENTANYL-0.9 % NACL/PF 100 ML IV PRN ×2 (08:07→13:41)
[2020-12-24] MEDS: vancomycin/NS 1 GM ADD-VANTAGE 250 ML IV SCH ×2 (08:08→21:35)
[2020-12-24] MEDS: venlafaxine XR 37.5mg cap (Q24H) PO SCH (08:11)
[2020-12-24] MEDS: docusate sodium 100mg/10ml UD cup PO SCH (08:11)
[2020-12-24] MEDS: nicotine 21mg patch - 24 hr TD SCH (08:12)
[2020-12-24] MEDS: methylPREDNISolone sod succ/PF 40mg inj. IV SCH ×2 (08:12→21:49)
[2020-12-24] MEDS: psyllium seed 3.4 gm packet PO SCH (08:17)
--- NOTE | 2020-12-24 11:14 | NUR ---
DR LOWERY IN, tube feeding at goal- na 150,m residuals of brown drainage at 280 this am. no bm. sbp higher today 150's- norvasc given. pt remains paralyzed and sedated.
[2020-12-24] MEDS ORDERED: Lactulose Enema **for rectal use only RC PRN ×2 (11:55)
[2020-12-24] MEDS ORDERED: methylnaltrexone br 12mg/0.6ml inj***SubQ only SQ PRN (11:55)
--- NOTE | 2020-12-24 12:19 | NUR ---
F/u: Noted patient's serum Na continues to increase, currently at 150 MMOL/L. Recommend water flushes with tube feeds, d/w at critical care rounds who agrees. See updated recommendations below. Pt now nine days with no BM, d/w who agrees for pt to receive additional bowel care. Routine Senna-S and PRN Lactulose and Relistor added to med list today. Will continue to follow closely. Recommendations: 1. Continuous TF via OGT using Vital AF with 60 mL/hr goal to provide 1440 mL total volume/day, 1728 kcal, 1166 mL water, and 108 g protein 2. Prealbumin q /; daily scaled wts 3. Additional 150 mL water flush Q4H; monitor serum Na and need to adjust 4. Routine bowel care; 9 days constipation Addendum: 12/24/20 at [address] Amended: Links added.
[2020-12-24] MEDS: CISatracurium besylate inj. 100 MG in dextrose 5%-water 90 ML IV PRN ×2 (13:28→17:40)
[2020-12-24] MEDS: lactulose 20gm/30ml cup OGT SCH ×2 (13:39→20:00)
[2020-12-24] MEDS: methylnaltrexone br 12mg/0.6ml inj***SubQ only SQ SCH (13:40)
[2020-12-24] MEDS ORDERED: WATER IV PRN (14:00)
[2020-12-24] MEDS ORDERED: MIDAZOLAM IV PRN (14:00)
[2020-12-24] MEDS ORDERED: DEXTROSE 5% IV PRN (14:00)
[2020-12-24] MEDS: MIDAZolam inj 100 MG in dextrose 5%-water 80 ML IV PRN ×2 (17:39→23:45)
[2020-12-24] MEDS: insulin glargine (Lantus) pen - multi-dose SQ SCH (21:00)
[2020-12-24] MEDS: sennosides/docusate sodium tablet PO SCH (21:49)
[2020-12-25] VITALS (23 sets, daily range): BP systolic 85–165; BP diastolic 56–96
[2020-12-25] MEDS: heparin, porcine 5000 units/ml vial SQ SCH ×3 (00:15→17:12)
[2020-12-25] MEDS: pantoprazole 40MG/NS 100ML BAG 100 ML IV SCH ×6 (00:39→21:52)
[2020-12-25] MEDS: CISatracurium besylate inj. 100 MG in dextrose 5%-water 90 ML IV PRN ×2 (01:30→13:53)
[2020-12-25] MEDS: mineral oil/petrolatum ophthal oint EACHEYE SCH ×4 (02:00→20:00)
[2020-12-25 02:49] LABS: ABG BASE EXCESS -5.2 mmol/L (-2.0-2.0); ABG HCO3 22.3 mmol/L (22.0-26.0); ABG OXYGEN SATURATION 91.9 % (94-97); ABG PCO2 (T) 49.3 mmHg (32.0-45.0); ABG PO2 (T) 62.3 mmHg (75.0-100.0); FCOHb 1.5 % (0.0-3.9); FMetHb 0.3 % (0.0-1.5); FO2Hb 90.2 % (94-97); PATIENT TEMPERATURE 35.7; PEEP 10 cm H2O; RESPIRATORY RATE 32 b/min; TIDAL VOLUME 400 mL; TOTAL HEMOGLOBIN 11.6 G/dl (12.0-16.0)
[2020-12-25] MEDS: FENTANYL IV PRN (03:46)
[2020-12-25] MEDS: DEXTROSE 5% IV PRN (03:46)
[2020-12-25] MEDS: WATER IV PRN (03:46)
[2020-12-25 03:50] LABS: BASOPHILS % (AUTO) 0.1 % (0-1); HEMOGLOBIN 11.1 g/dl (12.0-16.0); MEAN CORPUSCULAR VOLUME 88.7 FL (78-98); NEUTROPHILS # (AUTO) 23.1 X10'3 (1.8-7.7)
[2020-12-25 03:52] LABS: EOSINOPHILS % (AUTO) 0.1 % (0-6); HEMATOCRIT 33.9 % (35.0-45.0); LYMPHOCYTES # (AUTO) 0.7 X10'3 (1.1-4.8); MEAN CORPUSCULAR HEMOGLOBIN 29.1 PG (27.0-31.0); MEAN CORPUSCULAR HGB CONC 32.8 g/dL (33.0-36.5); MEAN PLATELET VOLUME 7.8 FL (7.4-10.4); MONOCYTES # (AUTO) 0.6 X10'3 (0-0.9); MONOCYTES % (AUTO) 2.6 % (2-12); NEUTROPHILS % (AUTO) 94.2 % (42-75); PLATELET COUNT 245 X10'3 (140-440); RED BLOOD COUNT 3.82 X10'6 (4.20-5.60); RED CELL DISTRIBUTION WIDTH 17.4 % (11.5-14.5); WHITE BLOOD COUNT 24.5 X10'3 (4.5-11.0)
[2020-12-25 04:03] LABS: D-DIMER 1.17 MG/L FEU (0-0.50)
[2020-12-25 04:05] LABS: ALBUMIN 2.1 G/DL (3.4-5.0); ANION GAP 10 (8-16); BLOOD UREA NITROGEN 64 MG/DL (7-18); BUN/CREATININE RATIO 60.4 (6.6-38.0); C-REACTIVE PROTEIN 0.36 MG/DL (0.0-0.5); CALCIUM 8.6 MG/DL (8.5-10.1); CHLORIDE 115 MMOL/L (99-107); CREATININE 1.06 MG/DL (0.40-0.90); GLUCOSE 106 MG/DL (70-104); MAGNESIUM 2.3 MG/DL (1.5-2.4); PHOSPHORUS 3.3 MG/DL (2.3-4.5); POTASSIUM 3.4 MMOL/L (3.5-5.1); SODIUM 148 MMOL/L (135-145); TOTAL CARBON DIOXIDE 23.1 MMOL/L (24-32); eGFR 53 ML/MIN
[2020-12-25 04:52] LABS: ANISOCYTOSIS 1+; NUCLEATED RED BLOOD CELLS 2 /100WBC (0-0); PLATELET ESTIMATE NORMAL; TOTAL CELLS COUNTED 100
[2020-12-25 04:53] LABS: POLYCHROMASIA FEW
[2020-12-25] MEDS: lactulose 20gm/30ml cup OGT SCH ×4 (05:27→21:23)
[2020-12-25] MEDS: MIDAZolam inj 100 MG in dextrose 5%-water 80 ML IV PRN ×2 (06:03→15:30)
--- NOTE | 2020-12-25 06:30 | NUR ---
Patient in room CICU 2008. I have received report from KIM and had the opportunity to ask questions and assume patient care.
[2020-12-25] MEDS: K and/or MAG REPLACEMENT MC SCH ×2 (08:00→20:00)
[2020-12-25] MEDS ORDERED: VANCOMYCIN LEVEL IV ONE (08:30)
[2020-12-25] MEDS: CefTRIAXone 2gm/D5W 50ml BAG 50 ML IV SCH (10:21)
[2020-12-25] MEDS: psyllium seed 3.4 gm packet PO SCH (10:22)
[2020-12-25] MEDS: venlafaxine XR 37.5mg cap (Q24H) PO SCH (10:22)
[2020-12-25] MEDS: sennosides/docusate sodium tablet PO SCH ×2 (10:22→20:00)
[2020-12-25] MEDS: amLODIPine 5mg tablet PO SCH (10:23)
[2020-12-25] MEDS: methylPREDNISolone sod succ/PF 40mg inj. IV SCH ×2 (10:24→21:21)
[2020-12-25] MEDS: DEXMEDETOMIDINE 400MCG in NORMAL SALINE 100ml IV SCH (10:25)
[2020-12-25] MEDS: nicotine 21mg patch - 24 hr TD SCH (10:26)
[2020-12-25] MEDS: potassium Cl 40MEQ/250ML bag 270 ML IV PRN (13:52)
[2020-12-25] MEDS: lactobacillus rhamnosus 10,000 MMU CELLS/CAPSULE PO SCH (20:00)
[2020-12-25] MEDS: insulin glargine (Lantus) pen - multi-dose SQ SCH (21:00)
[2020-12-26] VITALS (24 sets, daily range): BP systolic 57–184; BP diastolic 56–84
[2020-12-26] MEDS: pantoprazole 40MG/NS 100ML BAG 100 ML IV SCH ×6 (01:00→22:04)
[2020-12-26] MEDS: heparin, porcine 5000 units/ml vial SQ SCH ×3 (02:19→16:03)
[2020-12-26] MEDS: lactulose 20gm/30ml cup OGT SCH ×4 (02:19→19:55)
[2020-12-26] MEDS: mineral oil/petrolatum ophthal oint EACHEYE SCH ×4 (02:19→20:15)
[2020-12-26] MEDS: DEXMEDETOMIDINE 400MCG in NORMAL SALINE 100ml IV SCH ×3 (02:40→22:55)
[2020-12-26] MEDS: CISatracurium besylate inj. 100 MG in dextrose 5%-water 90 ML IV PRN (02:58)
[2020-12-26] MEDS ORDERED: VANCOMYCIN LEVEL IV ONE ×2 (03:00→08:00)
[2020-12-26 03:38] LABS: BASOPHILS % (AUTO) 0.1 % (0-1); EOSINOPHILS % (AUTO) 0.1 % (0-6); HEMATOCRIT 32.3 % (35.0-45.0); HEMOGLOBIN 10.5 g/dl (12.0-16.0); LYMPHOCYTES # (AUTO) 0.8 X10'3 (1.1-4.8); MEAN CORPUSCULAR HEMOGLOBIN 29.3 PG (27.0-31.0); MEAN CORPUSCULAR HGB CONC 32.5 g/dL (33.0-36.5); MEAN CORPUSCULAR VOLUME 90.2 FL (78-98); MEAN PLATELET VOLUME 7.9 FL (7.4-10.4); MONOCYTES # (AUTO) 0.3 X10'3 (0-0.9); MONOCYTES % (AUTO) 1.6 % (2-12); NEUTROPHILS # (AUTO) 19.1 X10'3 (1.8-7.7); NEUTROPHILS % (AUTO) 94.2 % (42-75); PLATELET COUNT 280 X10'3 (140-440); RED BLOOD COUNT 3.58 X10'6 (4.20-5.60); RED CELL DISTRIBUTION WIDTH 17.1 % (11.5-14.5); WHITE BLOOD COUNT 20.3 X10'3 (4.5-11.0)
[2020-12-26 03:54] LABS: ALANINE AMINOTRANSFERASE 39 U/L (12-78); ALBUMIN 1.9 G/DL (3.4-5.0); ALBUMIN/GLOBULIN RATIO 0.6 (1.1-1.5); ALKALINE PHOSPHATASE 140 IU/L (46-116); ANION GAP 6 (8-16); ASPARTATE AMINO TRANSFERASE 13 U/L (10-37); BILIRUBIN,TOTAL 0.2 MG/DL (0.1-1.0); BLOOD UREA NITROGEN 54 MG/DL (7-18); BUN/CREATININE RATIO 55.1 (6.6-38.0); C-REACTIVE PROTEIN 0.33 MG/DL (0.0-0.5); CALCIUM 8.7 MG/DL (8.5-10.1); CHLORIDE 116 MMOL/L (99-107); CREATININE 0.98 MG/DL (0.40-0.90); GLUCOSE 120 MG/DL (70-104); POTASSIUM 3.7 MMOL/L (3.5-5.1); SODIUM 147 MMOL/L (135-145); TOTAL CARBON DIOXIDE 25.3 MMOL/L (24-32); eGFR 58 ML/MIN
[2020-12-26 04:15] LABS: VANCOMYCIN,RANDOM 34.3 UG/ML
[2020-12-26 04:20] LABS: GIANT PLATELET FEW; NUCLEATED RED BLOOD CELLS 1 /100WBC (0-0); PLATELET ESTIMATE NORMAL; TOTAL CELLS COUNTED 100
[2020-12-26 04:21] LABS: ANISOCYTOSIS 2+; POLYCHROMASIA FEW
[2020-12-26] MEDS: WATER IV PRN (05:37)
[2020-12-26] MEDS: FENTANYL IV PRN (05:37)
[2020-12-26] MEDS: DEXTROSE 5% IV PRN (05:37)
[2020-12-26 05:41] LABS: ABG BASE EXCESS -5.6 mmol/L (-2.0-2.0); ABG HCO3 21.7 mmol/L (22.0-26.0); ABG OXYGEN SATURATION 94.1 % (94-97); ABG PCO2 (T) 47.3 mmHg (32.0-45.0); ABG PO2 (T) 67.1 mmHg (75.0-100.0); FCOHb 1.6 % (0.0-3.9); FMetHb 0.3 % (0.0-1.5); FO2Hb 92.3 % (94-97); PATIENT TEMPERATURE 35.2; PEEP 10 cm H2O; RESPIRATORY RATE 32 b/min; TIDAL VOLUME 400 mL; TOTAL HEMOGLOBIN 11.1 G/dl (12.0-16.0)
--- NOTE | 2020-12-26 07:05 | NUR ---
[facility]. I have received report from Haroldo SMITH and had the opportunity to ask questions and assume patient care. Addendum: 12/26/20 at 0705 by Marivel Upton RN Amended: Links added.
[2020-12-26] MEDS ORDERED: vancomycin/NS 1 GM ADD-VANTAGE 250 ML IV SCH (08:00)
[2020-12-26] MEDS: K and/or MAG REPLACEMENT MC SCH ×2 (08:00→20:00)
--- NOTE | 2020-12-26 08:32 | NUR ---
F/u 12/26: Pt remains intubated and sedated w/ TF running at goal of Vital AF at 60ml/hr. Noted patient's serum Na has decreased some, currently at 147 mMOL/L. Pt now eleven days with no BM, last documented 12/15 though pt now receiving abundant routine bowel care. Will continue to follow closely. Recommendations: 1. Continuous TF via OGT using Vital AF with 60 mL/hr goal to provide 1440 mL total volume/day, 1728 kcal, 1166 mL water, and 108 g protein 2. Prealbumin q /; daily scaled wts 3. Additional 150 mL water flush Q4H; monitor serum Na and need to adjust 4. Routine bowel care; 11 days constipation Addendum: 12/26/20 at [address] Amended: Links added.
[2020-12-26] MEDS: methylnaltrexone br 12mg/0.6ml inj***SubQ only SQ SCH (08:35)
[2020-12-26] MEDS: nicotine 21mg patch - 24 hr TD SCH (08:35)
[2020-12-26] MEDS: methylPREDNISolone sod succ/PF 40mg inj. IV SCH ×2 (08:37→19:56)
[2020-12-26] MEDS: venlafaxine XR 37.5mg cap (Q24H) PO SCH (08:37)
[2020-12-26] MEDS: sennosides/docusate sodium tablet PO SCH ×2 (08:37→19:55)
[2020-12-26] MEDS: amLODIPine 5mg tablet PO SCH (08:37)
[2020-12-26] MEDS: lactobacillus rhamnosus 10,000 MMU CELLS/CAPSULE PO SCH ×2 (08:37→19:55)
[2020-12-26] MEDS: metolazone 2.5mg tablet PO SCH (08:39)
[2020-12-26] MEDS: psyllium seed 3.4 gm packet PO SCH (08:39)
[2020-12-26] MEDS: furosemide 20 MG/2 ML vial IV SCH (08:39)
[2020-12-26] MEDS: CefTRIAXone 2gm/D5W 50ml BAG 50 ML IV SCH (08:39)
[2020-12-26] MEDS: MIDAZolam inj 100 MG in dextrose 5%-water 80 ML IV PRN ×3 (10:28→22:03)
--- NOTE | 2020-12-26 10:57 | NUR ---
Pt. had copious amount of liquid brown stool in bed. Rectal tube placed per order.
--- NOTE | 2020-12-26 13:34 | NUR ---
Attempted to prone pt. per Dr. Holman's order. Pt. did not tolerated. Spo2 went to the low 70's and pt. was biting on ETT not allowing her to get her volumes. Pt. recovered with SP02 89% once supined again.
--- NOTE | 2020-12-26 15:55 | NUR ---
Pt. has been hypertensive this shift especially when providing care ie., suctioning or turning pt. Sedation increased to
--- NOTE | 2020-12-26 18:25 | NUR ---
Problems reprioritized. Patient report given, questions answered & plan of care reviewed with Jordan SMITH. Addendum: 12/26/20 at 1825 by Marivel Upton RN Amended: Links added.
--- NOTE | 2020-12-26 18:30 | NUR ---
Patient in room CICU 2008. I have received report from Marivel SMITH and had the opportunity to ask questions and assume patient care.
[2020-12-26] MEDS: insulin glargine (Lantus) pen - multi-dose SQ SCH (21:00)
[2020-12-27] VITALS (24 sets, daily range): BP systolic 86–176; BP diastolic 51–91
[2020-12-27] MEDS: heparin, porcine 5000 units/ml vial SQ SCH ×4 (00:09→23:47)
[2020-12-27] MEDS: mineral oil/petrolatum ophthal oint EACHEYE SCH ×4 (02:40→19:34)
[2020-12-27] MEDS: pantoprazole 40MG/NS 100ML BAG 100 ML IV SCH ×2 (02:40→07:25)
[2020-12-27] MEDS: lactulose 20gm/30ml cup OGT SCH ×4 (02:41→19:33)
[2020-12-27] MEDS ORDERED: VANCOMYCIN LEVEL IV ONE ×2 (03:00)
[2020-12-27 03:14] LABS: EOSINOPHILS # (AUTO) 0.1 X10'3 (0-0.9); EOSINOPHILS % (AUTO) 0.3 % (0-6); HEMOGLOBIN 10.9 g/dl (12.0-16.0); LYMPHOCYTES # (AUTO) 0.9 X10'3 (1.1-4.8)
[2020-12-27 03:16] LABS: BASOPHILS % (AUTO) 0 % (0-1); HEMATOCRIT 33.3 % (35.0-45.0); LYMPHOCYTES % (AUTO) 3.7 % (21-51); MEAN CORPUSCULAR HGB CONC 32.9 g/dL (33.0-36.5); MEAN CORPUSCULAR VOLUME 88.3 FL (78-98); MEAN PLATELET VOLUME 7.6 FL (7.4-10.4); MONOCYTES # (AUTO) 0.4 X10'3 (0-0.9); MONOCYTES % (AUTO) 1.6 % (2-12); NEUTROPHILS # (AUTO) 21.8 X10'3 (1.8-7.7); NEUTROPHILS % (AUTO) 94.4 % (42-75); PLATELET COUNT 353 X10'3 (140-440); RED BLOOD COUNT 3.77 X10'6 (4.20-5.60); RED CELL DISTRIBUTION WIDTH 16.8 % (11.5-14.5); WHITE BLOOD COUNT 23.2 X10'3 (4.5-11.0)
[2020-12-27] MEDS: WATER IV PRN ×2 (03:27→16:14)
[2020-12-27] MEDS: FENTANYL IV PRN ×2 (03:27→16:14)
[2020-12-27] MEDS: DEXTROSE 5% IV PRN ×2 (03:27→16:14)
[2020-12-27 03:32] LABS: ABG BASE EXCESS -1.6 mmol/L (-2.0-2.0); ABG OXYGEN SATURATION 94.5 % (94-97); ABG PCO2 (T) 54.8 mmHg (32.0-45.0); ABG PO2 (T) 72.2 mmHg (75.0-100.0); FCOHb 1.6 % (0.0-3.9); FMetHb 0.3 % (0.0-1.5); FO2Hb 92.7 % (94-97); PATIENT TEMPERATURE 35.4; PEEP 10 cm H2O; RESPIRATORY RATE 32 b/min; TIDAL VOLUME 400 mL; TOTAL HEMOGLOBIN 10.8 G/dl (12.0-16.0)
[2020-12-27 04:14] LABS: NUCLEATED RED BLOOD CELLS 1 /100WBC (0-0); TOTAL CELLS COUNTED 100
[2020-12-27 04:15] LABS: ANISOCYTOSIS 2+; PLATELET ESTIMATE NORMAL; POLYCHROMASIA FEW
[2020-12-27 04:42] LABS: ALANINE AMINOTRANSFERASE 44 U/L (12-78); ALBUMIN/GLOBULIN RATIO 0.6 (1.1-1.5); ALKALINE PHOSPHATASE 150 IU/L (46-116); ANION GAP 10 (8-16); ASPARTATE AMINO TRANSFERASE 18 U/L (10-37); BILIRUBIN,TOTAL 0.2 MG/DL (0.1-1.0); BLOOD UREA NITROGEN 46 MG/DL (7-18); BUN/CREATININE RATIO 44.7 (6.6-38.0); CALCIUM 8.3 MG/DL (8.5-10.1); CHLORIDE 110 MMOL/L (99-107); CREATININE 1.03 MG/DL (0.40-0.90); GLUCOSE 117 MG/DL (70-104); MAGNESIUM 2.2 MG/DL (1.5-2.4); POTASSIUM 3.4 MMOL/L (3.5-5.1); SODIUM 146 MMOL/L (135-145); TOTAL CARBON DIOXIDE 26.5 MMOL/L (24-32); TOTAL PROTEIN 5.3 G/DL (6.4-8.2); TRIGLYCERIDES 346 MG/DL (20-135); VANCOMYCIN,RANDOM 34.6 UG/ML; eGFR 54 ML/MIN
[2020-12-27] MEDS: NORepinephrine inj. 8 MG in dextrose 5%-water 242 ML IV SCH (05:10)
--- NOTE | 2020-12-27 06:20 | NUR ---
Problems reprioritized. Patient report given, questions answered & plan of care reviewed with Marivel SMITH.
--- NOTE | 2020-12-27 06:30 | NUR ---
Patient in room CICU 2008. I have received report from Jordan SMITH and had the opportunity to ask questions and assume patient care. Tube feed empty. No tube feed formula on unit.
[2020-12-27] MEDS: DEXMEDETOMIDINE 400MCG in NORMAL SALINE 100ml IV SCH ×3 (06:41→23:46)
[2020-12-27] MEDS: K and/or MAG REPLACEMENT MC SCH ×2 (08:00→19:34)
[2020-12-27] MEDS: amLODIPine 5mg tablet PO SCH (08:24)
[2020-12-27] MEDS: lactobacillus rhamnosus 10,000 MMU CELLS/CAPSULE PO SCH ×2 (08:24→19:33)
[2020-12-27] MEDS: sennosides/docusate sodium tablet PO SCH ×2 (08:24→19:33)
[2020-12-27] MEDS: psyllium seed 3.4 gm packet PO SCH (08:24)
[2020-12-27] MEDS: nicotine 21mg patch - 24 hr TD SCH (08:25)
[2020-12-27] MEDS: venlafaxine XR 37.5mg cap (Q24H) PO SCH (08:25)
[2020-12-27] MEDS: methylPREDNISolone sod succ/PF 40mg inj. IV SCH (08:25)
[2020-12-27] MEDS: furosemide 20 MG/2 ML vial IV SCH (08:25)
[2020-12-27] MEDS: metolazone 2.5mg tablet PO SCH (08:26)
[2020-12-27] MEDS: CefTRIAXone 2gm/D5W 50ml BAG 50 ML IV SCH (08:39)
[2020-12-27] MEDS: MIDAZolam inj 100 MG in dextrose 5%-water 80 ML IV PRN ×2 (08:41→22:33)
--- NOTE | 2020-12-27 09:01 | NUR ---
CabrerarHannah Rosenberg called for update. Dr. Coronado in to see pt. RN notified Dr. Cummings that Shakira would like to speak with him.
--- NOTE | 2020-12-27 09:24 | NUR ---
Dr. Cummings called and spoke with dtr. Conte who stated she is going to discuss case with her brother and get back to us re. comfort care.
--- NOTE | 2020-12-27 12:52 | NUR ---
Son here to visit patient.
--- NOTE | 2020-12-27 14:30 | NUR ---
Son left and took all belongings home with him,
--- NOTE | 2020-12-27 18:20 | NUR ---
Problems reprioritized. Patient report given, questions answered & plan of care reviewed with Jordan SMITH. Addendum: 12/27/20 at 1820 by Marivel Upton RN Amended: Links added.
--- NOTE | 2020-12-27 18:20 | NUR ---
Patient in room CICU 2008. I have received report from Marivel SMITH and had the opportunity to ask questions and assume patient care.
[2020-12-27] MEDS: insulin glargine (Lantus) pen - multi-dose SQ SCH (21:00)
[2020-12-28] VITALS (24 sets, daily range): BP systolic 110–171; BP diastolic 68–100
[2020-12-28] MEDS: NORepinephrine inj. 8 MG in dextrose 5%-water 242 ML IV SCH (00:07)
[2020-12-28] MEDS: mineral oil/petrolatum ophthal oint EACHEYE SCH ×4 (02:23→19:51)
[2020-12-28] MEDS: lactulose 20gm/30ml cup OGT SCH ×4 (02:32→19:50)
[2020-12-28 02:48] LABS: ABG BASE EXCESS 3.5 mmol/L (-2.0-2.0); ABG OXYGEN SATURATION 90.7 % (94-97); ABG PCO2 (T) 60.9 mmHg (32.0-45.0); ABG PO2 (T) 58.3 mmHg (75.0-100.0); ALLEN'S TEST Modified; FCOHb 1.6 % (0.0-3.9); FMetHb 0.3 % (0.0-1.5); PATIENT TEMPERATURE 36.6; PEEP 10 cm H2O; RESPIRATORY RATE 32 b/min; TIDAL VOLUME 400 mL; TOTAL HEMOGLOBIN 11.8 G/dl (12.0-16.0)
[2020-12-28] MEDS ORDERED: VANCOMYCIN LEVEL IV ONE (03:00)
[2020-12-28 03:10] LABS: BASOPHILS % (AUTO) 0 % (0-1); EOSINOPHILS # (AUTO) 0.1 X10'3 (0-0.9); EOSINOPHILS % (AUTO) 0.6 % (0-6); HEMATOCRIT 32.9 % (35.0-45.0); LYMPHOCYTES % (AUTO) 4.2 % (21-51); MEAN CORPUSCULAR HEMOGLOBIN 29.3 PG (27.0-31.0); MEAN CORPUSCULAR HGB CONC 33.4 g/dL (33.0-36.5); MEAN CORPUSCULAR VOLUME 87.7 FL (78-98); MEAN PLATELET VOLUME 7.8 FL (7.4-10.4); MONOCYTES # (AUTO) 0.4 X10'3 (0-0.9); MONOCYTES % (AUTO) 1.7 % (2-12); NEUTROPHILS # (AUTO) 21.1 X10'3 (1.8-7.7); NEUTROPHILS % (AUTO) 93.5 % (42-75); PLATELET COUNT 337 X10'3 (140-440); RED BLOOD COUNT 3.75 X10'6 (4.20-5.60); WHITE BLOOD COUNT 22.5 X10'3 (4.5-11.0)
[2020-12-28 03:37] LABS: ALANINE AMINOTRANSFERASE 49 U/L (12-78); ALBUMIN/GLOBULIN RATIO 0.6 (1.1-1.5); ALKALINE PHOSPHATASE 167 IU/L (46-116); ANION GAP 6 (8-16); ASPARTATE AMINO TRANSFERASE 22 U/L (10-37); BILIRUBIN,TOTAL 0.2 MG/DL (0.1-1.0); BLOOD UREA NITROGEN 34 MG/DL (7-18); BUN/CREATININE RATIO 39.5 (6.6-38.0); CALCIUM 8.5 MG/DL (8.5-10.1); CHLORIDE 107 MMOL/L (99-107); CREATININE 0.86 MG/DL (0.40-0.90); GLUCOSE 95 MG/DL (70-104); MAGNESIUM 2.1 MG/DL (1.5-2.4); PHOSPHORUS 3.2 MG/DL (2.3-4.5); SODIUM 145 MMOL/L (135-145); TOTAL CARBON DIOXIDE 32.1 MMOL/L (24-32); TOTAL PROTEIN 5.5 G/DL (6.4-8.2); VANCOMYCIN,RANDOM 28.1 UG/ML; eGFR 67 ML/MIN
[2020-12-28 03:47] LABS: POTASSIUM 2.9 MMOL/L (3.5-5.1)
[2020-12-28] MEDS: WATER IV PRN ×2 (04:20→15:05)
[2020-12-28] MEDS: FENTANYL IV PRN ×2 (04:20→15:05)
[2020-12-28] MEDS: DEXTROSE 5% IV PRN ×2 (04:20→15:05)
[2020-12-28] MEDS: potassium Cl 40MEQ/250ML bag 270 ML IV PRN ×2 (04:30→06:45)
--- NOTE | 2020-12-28 06:21 | NUR ---
Problems reprioritized. Patient report given, questions answered & plan of care reviewed with Marivel SMITH.
[2020-12-28] MEDS: nicotine 21mg patch - 24 hr TD SCH (07:32)
[2020-12-28] MEDS: furosemide 20 MG/2 ML vial IV SCH (07:33)
[2020-12-28] MEDS: methylPREDNISolone sod succ/PF 40mg inj. IV SCH (07:33)
[2020-12-28] MEDS: lactobacillus rhamnosus 10,000 MMU CELLS/CAPSULE PO SCH (07:33)
[2020-12-28] MEDS: pantoprazole 40 MG vial IV SCH (07:33)
[2020-12-28] MEDS: metolazone 2.5mg tablet PO SCH (07:34)
[2020-12-28] MEDS: amLODIPine 5mg tablet PO SCH (07:34)
[2020-12-28] MEDS: venlafaxine XR 37.5mg cap (Q24H) PO SCH (07:34)
[2020-12-28] MEDS: sennosides/docusate sodium tablet PO SCH (07:35)
[2020-12-28] MEDS: heparin, porcine 5000 units/ml vial SQ SCH ×3 (07:35→23:07)
[2020-12-28] MEDS: K and/or MAG REPLACEMENT MC SCH ×2 (08:00→20:00)
[2020-12-28 08:16] LABS: C-REACTIVE PROTEIN 2.09 MG/DL (0.0-0.5); LACTATE DEHYDROGENASE 448 U/L (81-234)
[2020-12-28] MEDS: MIDAZolam inj 100 MG in dextrose 5%-water 80 ML IV PRN ×2 (08:53→19:52)
--- NOTE | 2020-12-28 09:29 | NUR ---
Pt. did not awaken during sedation vacation. BP increased to 186/104, HR 111. Sedation turned bacjk on.
[2020-12-28] MEDS: DEXMEDETOMIDINE 400MCG in NORMAL SALINE 100ml IV SCH (11:00)
[2020-12-28] MEDS ORDERED: acetaminophen 325mg tablet OGT PRN (11:17)
[2020-12-28] MEDS ORDERED: guaiFENesin/codeine phos 10ml UD oral syrup OGT PRN (11:18)
[2020-12-28] MEDS ORDERED: guaiFENesin/DM 10ml UD oral syrup OGT PRN (11:18)
[2020-12-28] MEDS ORDERED: cholecalciferol (vitamin D3) 1,000 unit (25mcg) tablet PO SCH (11:38)
[2020-12-28] MEDS: methylnaltrexone br 12mg/0.6ml inj***SubQ only SQ SCH (11:48)
[2020-12-28] MEDS: losartan 50mg tablet PO SCH (11:48)
--- NOTE | 2020-12-28 13:31 | NUR ---
F/u: Noted patient's GRV up to 1000 mL per EMR, d/w MD at critical care rounds. Per MD pt to start routine Relistor which had been discontinued 12/27 and last given 12/26. Addendum: 12/28/20 at [address] Amended: Links added.
--- NOTE | 2020-12-28 18:15 | NUR ---
Problems reprioritized. Patient report given, questions answered & plan of care reviewed with GRETA SMITH. Addendum: 12/28/20 at 1815 by Marivel Upton RN Amended: Links added.
[2020-12-28] MEDS: sennosides/docusate sodium tablet OGT SCH (19:51)
[2020-12-28] MEDS: lactobacillus rhamnosus 10,000 MMU CELLS/CAPSULE OGT SCH (19:51)
[2020-12-28] MEDS: insulin glargine (Lantus) pen - multi-dose SQ SCH (21:00)
[2020-12-29] VITALS (25 sets, daily range): BP systolic 108–176; BP diastolic 66–103
[2020-12-29] MEDS: DEXMEDETOMIDINE 400MCG in NORMAL SALINE 100ml IV SCH ×2 (00:56→14:51)
[2020-12-29] MEDS: lactulose 20gm/30ml cup OGT SCH ×4 (02:00→20:07)
[2020-12-29] MEDS: mineral oil/petrolatum ophthal oint EACHEYE SCH ×4 (02:00→20:08)
[2020-12-29] MEDS ORDERED: VANCOMYCIN LEVEL IV ONE ×2 (03:00→07:30)
[2020-12-29 03:01] LABS: BASOPHILS # (AUTO) 0.1 X10'3 (0-0.2); BASOPHILS % (AUTO) 0.3 % (0-1); EOSINOPHILS # (AUTO) 0.2 X10'3 (0-0.9); HEMATOCRIT 33.5 % (35.0-45.0); LYMPHOCYTES # (AUTO) 0.8 X10'3 (1.1-4.8); LYMPHOCYTES % (AUTO) 3.9 % (21-51); MEAN CORPUSCULAR HEMOGLOBIN 29.1 PG (27.0-31.0); MEAN CORPUSCULAR HGB CONC 32.8 g/dL (33.0-36.5); MEAN CORPUSCULAR VOLUME 88.8 FL (78-98); MEAN PLATELET VOLUME 7.9 FL (7.4-10.4); MONOCYTES # (AUTO) 0.4 X10'3 (0-0.9); MONOCYTES % (AUTO) 2.1 % (2-12); NEUTROPHILS # (AUTO) 18.9 X10'3 (1.8-7.7); NEUTROPHILS % (AUTO) 92.7 % (42-75); PLATELET COUNT 273 X10'3 (140-440); RED BLOOD COUNT 3.77 X10'6 (4.20-5.60); RED CELL DISTRIBUTION WIDTH 16.9 % (11.5-14.5); WHITE BLOOD COUNT 20.4 X10'3 (4.5-11.0)
[2020-12-29 03:24] LABS: ALANINE AMINOTRANSFERASE 53 U/L (12-78); ALBUMIN 1.9 G/DL (3.4-5.0); ALBUMIN/GLOBULIN RATIO 0.5 (1.1-1.5); ALKALINE PHOSPHATASE 166 IU/L (46-116); ANION GAP 2 (8-16); ASPARTATE AMINO TRANSFERASE 27 U/L (10-37); BILIRUBIN,TOTAL 0.3 MG/DL (0.1-1.0); BLOOD UREA NITROGEN 25 MG/DL (7-18); BUN/CREATININE RATIO 32.9 (6.6-38.0); C-REACTIVE PROTEIN 4.94 MG/DL (0.0-0.5); CALCIUM 8.6 MG/DL (8.5-10.1); CHLORIDE 100 MMOL/L (99-107); CREATININE 0.76 MG/DL (0.40-0.90); GLUCOSE 163 MG/DL (70-104); LACTATE DEHYDROGENASE 345 U/L (81-234); MAGNESIUM 1.9 MG/DL (1.5-2.4); PHOSPHORUS 2.4 MG/DL (2.3-4.5); SODIUM 139 MMOL/L (135-145); TOTAL CARBON DIOXIDE 36.8 MMOL/L (24-32); TOTAL PROTEIN 5.6 G/DL (6.4-8.2); VANCOMYCIN,RANDOM 19.4 UG/ML; eGFR 77 ML/MIN
[2020-12-29 03:26] LABS: POTASSIUM 2.8 MMOL/L (3.5-5.1)
[2020-12-29 03:32] LABS: ABG HCO3 38.1 mmol/L (22.0-26.0); ABG OXYGEN SATURATION 85.8 % (94-97); ABG PCO2 (T) 57.3 mmHg (32.0-45.0); ALLEN'S TEST POSITIVE; FCOHb 2.1 % (0.0-3.9); FMetHb 0.3 % (0.0-1.5); FO2Hb 83.7 % (94-97); PATIENT TEMPERATURE 37.3; PEEP 10 cm H2O; RESPIRATORY RATE 32 b/min; TIDAL VOLUME 400 mL; TOTAL HEMOGLOBIN 11.9 G/dl (12.0-16.0)
[2020-12-29] MEDS: potassium Cl 40MEQ/250ML bag 270 ML IV PRN (05:24)
[2020-12-29 05:32] LABS: TOTAL CELLS COUNTED 100
[2020-12-29 05:33] LABS: ANISOCYTOSIS 1+; PLATELET ESTIMATE NORMAL
[2020-12-29] MEDS: FENTANYL IV PRN ×2 (06:09→17:50)
[2020-12-29] MEDS: WATER IV PRN ×2 (06:09→17:50)
[2020-12-29] MEDS: DEXTROSE 5% IV PRN ×2 (06:09→17:50)
[2020-12-29] MEDS: MIDAZolam inj 100 MG in dextrose 5%-water 80 ML IV PRN ×2 (06:15→17:48)
[2020-12-29] MEDS: K and/or MAG REPLACEMENT MC SCH ×2 (08:00→20:00)
[2020-12-29] MEDS: furosemide 20 MG/2 ML vial IV SCH (08:30)
[2020-12-29] MEDS: sennosides/docusate sodium tablet OGT SCH ×2 (09:40→20:07)
[2020-12-29] MEDS: pantoprazole 40 MG vial IV SCH (09:40)
[2020-12-29] MEDS: ALPRAZolam 0.5mg tablet OGT PRN (09:41)
[2020-12-29] MEDS: cholecalciferol (vitamin D3) 1,000 unit (25mcg) tablet OGT SCH (09:41)
[2020-12-29] MEDS: methylPREDNISolone sod succ/PF 40mg inj. IV SCH (09:42)
[2020-12-29] MEDS: heparin, porcine 5000 units/ml vial SQ SCH ×2 (09:43→16:16)
[2020-12-29] MEDS: amLODIPine 5mg tablet OGT SCH (09:44)
[2020-12-29] MEDS: lactobacillus rhamnosus 10,000 MMU CELLS/CAPSULE OGT SCH ×2 (09:44→20:08)
[2020-12-29] MEDS: venlafaxine 37.5mg tablet OGT SCH (09:45)
[2020-12-29] MEDS: metolazone 2.5mg tablet OGT SCH (09:45)
[2020-12-29] MEDS: vancomycin/NS 1 GM ADD-VANTAGE 250 ML IV SCH (09:48)
[2020-12-29] MEDS: losartan 50mg tablet PO SCH (09:53)
--- NOTE | 2020-12-29 12:08 | NUR ---
Reassessment: Per EMR patient's TF currently running at 30 mL/hr working towards goal rate of 60 mL/hr given elevated GRV. Pt started on Relistor 12/28 and GRV 175-540 mL over the last 24 hours, improved from previous day. LBM 12/28 documented as small with diarrhea though previously constipated for 11 days. Pt receiving routine Senna-S and Lactulose with additional PRN bowel care available. Will continue to follow closely and make recommendations as appropriate. Recommendations: 1. Continuous TF via OGT using Vital AF with 60 mL/hr goal to provide 1440 mL total volume/day, 1728 kcal, 1166 mL water, and 108 g protein 2. Prealbumin q /; daily scaled wts 3. Additional 150 mL water flush Q4H; monitor serum Na and need to adjust 4. Routine bowel care; prior 11 days constipation Addendum: 12/29/20 at [address] Amended: Links added.
[2020-12-29] MEDS: nicotine 21mg patch - 24 hr TD SCH (13:39)
[2020-12-29] MEDS: insulin glargine (Lantus) pen - multi-dose SQ SCH (20:08)
[2020-12-30] VITALS (22 sets, daily range): BP systolic 100–174; BP diastolic 58–106
[2020-12-30] MEDS: heparin, porcine 5000 units/ml vial SQ SCH ×3 (00:15→16:55)
[2020-12-30] MEDS: lactulose 20gm/30ml cup OGT SCH ×4 (02:00→20:51)
[2020-12-30] MEDS: mineral oil/petrolatum ophthal oint EACHEYE SCH ×4 (02:00→20:51)
[2020-12-30 02:56] LABS: BASOPHILS % (AUTO) 0.3 % (0-1); EOSINOPHILS # (AUTO) 0.1 X10'3 (0-0.9); EOSINOPHILS % (AUTO) 0.9 % (0-6); HEMATOCRIT 32.7 % (35.0-45.0); HEMOGLOBIN 10.9 g/dl (12.0-16.0); LYMPHOCYTES # (AUTO) 0.6 X10'3 (1.1-4.8); LYMPHOCYTES % (AUTO) 3.5 % (21-51); MEAN CORPUSCULAR HEMOGLOBIN 29.3 PG (27.0-31.0); MEAN CORPUSCULAR HGB CONC 33.4 g/dL (33.0-36.5); MEAN CORPUSCULAR VOLUME 87.7 FL (78-98); MEAN PLATELET VOLUME 7.8 FL (7.4-10.4); MONOCYTES # (AUTO) 0.4 X10'3 (0-0.9); MONOCYTES % (AUTO) 2.3 % (2-12); NEUTROPHILS # (AUTO) 14.7 X10'3 (1.8-7.7); PLATELET COUNT 254 X10'3 (140-440); RED BLOOD COUNT 3.72 X10'6 (4.20-5.60); RED CELL DISTRIBUTION WIDTH 16.9 % (11.5-14.5); WHITE BLOOD COUNT 15.8 X10'3 (4.5-11.0)
[2020-12-30 03:11] LABS: ALANINE AMINOTRANSFERASE 39 U/L (12-78); ALBUMIN 1.6 G/DL (3.4-5.0); ALBUMIN/GLOBULIN RATIO 0.5 (1.1-1.5); ALKALINE PHOSPHATASE 137 IU/L (46-116); ANION GAP 0 (8-16); ASPARTATE AMINO TRANSFERASE 20 U/L (10-37); BILIRUBIN,TOTAL 0.3 MG/DL (0.1-1.0); BLOOD UREA NITROGEN 19 MG/DL (7-18); BUN/CREATININE RATIO 28.4 (6.6-38.0); C-REACTIVE PROTEIN 3.75 MG/DL (0.0-0.5); CALCIUM 7.2 MG/DL (8.5-10.1); CHLORIDE 97 MMOL/L (99-107); CREATININE 0.67 MG/DL (0.40-0.90); GLUCOSE 228 MG/DL (70-104); LACTATE DEHYDROGENASE 284 U/L (81-234); MAGNESIUM 1.6 MG/DL (1.5-2.4); PHOSPHORUS 2.3 MG/DL (2.3-4.5); PREALBUMIN 16.2 MG/DL (19-36); SODIUM 132 MMOL/L (135-145); TOTAL CARBON DIOXIDE 35.3 MMOL/L (24-32); TOTAL PROTEIN 4.9 G/DL (6.4-8.2); TRIGLYCERIDES 193 MG/DL (20-135); eGFR 89 ML/MIN
[2020-12-30 03:19] LABS: POTASSIUM 2.6 MMOL/L (3.5-5.1)
[2020-12-30] MEDS: potassium Cl 40MEQ/250ML bag 270 ML IV PRN ×2 (04:19→07:22)
[2020-12-30 04:20] LABS: ABG BASE EXCESS 15.9 mmol/L (-2.0-2.0); ABG HCO3 42.3 mmol/L (22.0-26.0); ABG OXYGEN SATURATION 91.7 % (94-97); ABG PCO2 (T) 59.5 mmHg (32.0-45.0); ABG PO2 (T) 59.7 mmHg (75.0-100.0); ALLEN'S TEST POSITIVE; FCOHb 1.9 % (0.0-3.9); FMetHb 0.3 % (0.0-1.5); FO2Hb 89.7 % (94-97); PATIENT TEMPERATURE 36.8; PEEP 10 cm H2O; RESPIRATORY RATE 32 b/min; TIDAL VOLUME 400 mL
[2020-12-30] MEDS: MIDAZolam inj 100 MG in dextrose 5%-water 80 ML IV PRN (04:22)
[2020-12-30] MEDS: FENTANYL IV PRN ×2 (06:32→20:51)
[2020-12-30] MEDS: DEXTROSE 5% IV PRN ×2 (06:32→20:51)
[2020-12-30] MEDS: WATER IV PRN ×2 (06:32→20:51)
[2020-12-30] MEDS: nicotine 21mg patch - 24 hr TD SCH (07:48)
[2020-12-30] MEDS: methylnaltrexone br 12mg/0.6ml inj***SubQ only SQ SCH (07:49)
[2020-12-30] MEDS: furosemide 20 MG/2 ML vial IV SCH (07:50)
[2020-12-30] MEDS: pantoprazole 40 MG vial IV SCH (07:50)
[2020-12-30] MEDS: cholecalciferol (vitamin D3) 1,000 unit (25mcg) tablet OGT SCH (07:50)
[2020-12-30] MEDS: losartan 50mg tablet PO SCH (07:50)
[2020-12-30] MEDS: lactobacillus rhamnosus 10,000 MMU CELLS/CAPSULE OGT SCH ×2 (07:51→20:51)
[2020-12-30] MEDS: methylPREDNISolone sod succ/PF 40mg inj. IV SCH (07:51)
[2020-12-30] MEDS: venlafaxine 37.5mg tablet OGT SCH (07:51)
[2020-12-30] MEDS: amLODIPine 5mg tablet OGT SCH (07:52)
[2020-12-30] MEDS: sennosides/docusate sodium tablet OGT SCH ×2 (07:52→20:51)
[2020-12-30] MEDS: K and/or MAG REPLACEMENT MC SCH ×2 (08:00→20:00)
[2020-12-30] MEDS: metolazone 2.5mg tablet OGT SCH (08:02)
[2020-12-30] MEDS: DEXMEDETOMIDINE 400MCG in NORMAL SALINE 100ml IV SCH (08:02)
[2020-12-30] MEDS: vancomycin/NS 1 GM ADD-VANTAGE 250 ML IV SCH (08:37)
[2020-12-30 16:38] LABS: ALANINE AMINOTRANSFERASE 46 U/L (12-78); ALBUMIN 1.8 G/DL (3.4-5.0); ALBUMIN/GLOBULIN RATIO 0.5 (1.1-1.5); ALKALINE PHOSPHATASE 157 IU/L (46-116); ANION GAP 3 (8-16); ASPARTATE AMINO TRANSFERASE 23 U/L (10-37); BILIRUBIN,TOTAL 0.3 MG/DL (0.1-1.0); BLOOD UREA NITROGEN 23 MG/DL (7-18); BUN/CREATININE RATIO 31.1 (6.6-38.0); CHLORIDE 94 MMOL/L (99-107); CREATININE 0.74 MG/DL (0.40-0.90); GLUCOSE 122 MG/DL (70-104); MAGNESIUM 1.7 MG/DL (1.5-2.4); PHOSPHORUS 3.1 MG/DL (2.3-4.5); POTASSIUM 4.2 MMOL/L (3.5-5.1); SODIUM 136 MMOL/L (135-145); TOTAL CARBON DIOXIDE 39.4 MMOL/L (24-32); TOTAL PROTEIN 5.8 G/DL (6.4-8.2); eGFR 80 ML/MIN
[2020-12-30] MEDS: insulin glargine (Lantus) pen - multi-dose SQ SCH (21:00)
[2020-12-30] MEDS: metoprolol tartrate 1mg/ml inj IV PRN (22:30)
[2020-12-31] VITALS (24 sets, daily range): BP systolic 87–147; BP diastolic 48–84
[2020-12-31] MEDS: heparin, porcine 5000 units/ml vial SQ SCH ×3 (00:25→15:20)
[2020-12-31] MEDS: MIDAZolam inj 100 MG in dextrose 5%-water 80 ML IV PRN (00:25)
[2020-12-31] MEDS: DEXMEDETOMIDINE 400MCG in NORMAL SALINE 100ml IV SCH ×2 (01:45→17:16)
[2020-12-31] MEDS: mineral oil/petrolatum ophthal oint EACHEYE SCH ×4 (01:46→19:21)
[2020-12-31] MEDS: lactulose 20gm/30ml cup OGT SCH ×4 (01:46→19:21)
[2020-12-31 04:15] LABS: BASOPHILS % (AUTO) 0.2 % (0-1); EOSINOPHILS # (AUTO) 0.2 X10'3 (0-0.9); EOSINOPHILS % (AUTO) 1.1 % (0-6); HEMATOCRIT 31.1 % (35.0-45.0); HEMOGLOBIN 10.5 g/dl (12.0-16.0); LYMPHOCYTES # (AUTO) 0.9 X10'3 (1.1-4.8); LYMPHOCYTES % (AUTO) 4.5 % (21-51); MEAN CORPUSCULAR HEMOGLOBIN 29.8 PG (27.0-31.0); MEAN CORPUSCULAR HGB CONC 33.9 g/dL (33.0-36.5); MEAN CORPUSCULAR VOLUME 87.8 FL (78-98); MEAN PLATELET VOLUME 8.1 FL (7.4-10.4); MONOCYTES # (AUTO) 0.6 X10'3 (0-0.9); MONOCYTES % (AUTO) 3.2 % (2-12); NEUTROPHILS # (AUTO) 17.3 X10'3 (1.8-7.7); PLATELET COUNT 287 X10'3 (140-440); RED BLOOD COUNT 3.54 X10'6 (4.20-5.60)
[2020-12-31 04:20] LABS: ABG BASE EXCESS 15.2 mmol/L (-2.0-2.0); ABG HCO3 41.9 mmol/L (22.0-26.0); ABG OXYGEN SATURATION 89.7 % (94-97); ABG PCO2 (T) 63.3 mmHg (32.0-45.0); ABG PO2 (T) 58.4 mmHg (75.0-100.0); ALLEN'S TEST Modified; FCOHb 1.7 % (0.0-3.9); FMetHb 0.3 % (0.0-1.5); FO2Hb 87.9 % (94-97); PATIENT TEMPERATURE 37.2; PEEP 10 cm H2O; RESPIRATORY RATE 32 b/min; TIDAL VOLUME 400 mL; TOTAL HEMOGLOBIN 11.6 G/dl (12.0-16.0)
[2020-12-31 04:49] LABS: ALANINE AMINOTRANSFERASE 40 U/L (12-78); ALBUMIN 1.9 G/DL (3.4-5.0); ALBUMIN/GLOBULIN RATIO 0.5 (1.1-1.5); ALKALINE PHOSPHATASE 155 IU/L (46-116); ANION GAP 6 (8-16); ASPARTATE AMINO TRANSFERASE 23 U/L (10-37); BILIRUBIN,TOTAL 0.3 MG/DL (0.1-1.0); BLOOD UREA NITROGEN 23 MG/DL (7-18); BUN/CREATININE RATIO 30.7 (6.6-38.0); CALCIUM 8.5 MG/DL (8.5-10.1); CHLORIDE 89 MMOL/L (99-107); CREATININE 0.75 MG/DL (0.40-0.90); GLUCOSE 152 MG/DL (70-104); POTASSIUM 3.4 MMOL/L (3.5-5.1); SODIUM 132 MMOL/L (135-145); eGFR 78 ML/MIN
[2020-12-31 04:53] LABS: LACTATE DEHYDROGENASE 339 U/L (81-234); MAGNESIUM 1.7 MG/DL (1.5-2.4); PHOSPHORUS 3.4 MG/DL (2.3-4.5)
[2020-12-31 04:56] LABS: ANISOCYTOSIS 1+; PLATELET ESTIMATE NORMAL; TOTAL CELLS COUNTED 100
[2020-12-31 04:57] LABS: POLYCHROMASIA FEW
[2020-12-31] MEDS ORDERED: WATER IV PRN (06:50)
[2020-12-31] MEDS ORDERED: DEXTROSE 5% IV PRN (06:50)
[2020-12-31] MEDS ORDERED: FENTANYL IV PRN (06:50)
--- NOTE | 2020-12-31 06:50 | NUR ---
Patient in room CICU 2008. I have received report from Crow SMITH and had the opportunity to ask questions and assume patient care.
[2020-12-31] MEDS: pantoprazole 40 MG vial IV SCH (07:31)
[2020-12-31] MEDS: methylPREDNISolone sod succ/PF 40mg inj. IV SCH (07:31)
[2020-12-31] MEDS: furosemide 20 MG/2 ML vial IV SCH (07:31)
[2020-12-31] MEDS: nicotine 21mg patch - 24 hr TD SCH (07:32)
[2020-12-31] MEDS: vancomycin/NS 1 GM ADD-VANTAGE 250 ML IV SCH (07:32)
[2020-12-31] MEDS: venlafaxine 37.5mg tablet OGT SCH (07:33)
[2020-12-31] MEDS: lactobacillus rhamnosus 10,000 MMU CELLS/CAPSULE OGT SCH ×2 (07:33→19:19)
[2020-12-31] MEDS: cholecalciferol (vitamin D3) 1,000 unit (25mcg) tablet OGT SCH (07:33)
[2020-12-31] MEDS: amLODIPine 5mg tablet OGT SCH (07:33)
[2020-12-31] MEDS: sennosides/docusate sodium tablet OGT SCH ×2 (07:33→19:21)
[2020-12-31] MEDS: metolazone 2.5mg tablet OGT SCH (07:34)
[2020-12-31] MEDS: K and/or MAG REPLACEMENT MC SCH ×2 (07:34→20:00)
[2020-12-31] MEDS: losartan 50mg tablet PO SCH (07:39)
[2020-12-31] MEDS: potassium Cl 40MEQ/250ML bag 270 ML IV PRN (07:52)
[2020-12-31] MEDS: DEXTROSE 5% IV PRN (08:08)
[2020-12-31] MEDS: FENTANYL IV PRN (08:08)
[2020-12-31] MEDS: WATER IV PRN (08:08)
[2020-12-31] MEDS ORDERED: fentaNYL/PF inj 2,500 MCG in normal saline 250ml IV soln 200 ML IV PRN (11:10)
[2020-12-31] MEDS: midazolam 100mg in NS 100ml 100 ML IV PRN ×2 (11:40→19:19)
[2020-12-31] MEDS ORDERED: albumin (human) 25% 100 ML IV solution IV ONE (15:15)
--- NOTE | 2020-12-31 18:05 | NUR ---
Problems reprioritized. Patient report given, questions answered & plan of care reviewed with Crow RN.
[2020-12-31] MEDS: insulin glargine (Lantus) pen - multi-dose SQ SCH (21:00)
[2021-01-01] VITALS (24 sets, daily range): BP systolic 93–141; BP diastolic 55–76
[2021-01-01] MEDS: heparin, porcine 5000 units/ml vial SQ SCH ×3 (00:07→15:26)
[2021-01-01] MEDS: fentaNYL/PF inj 2,500 MCG in normal saline 250ml IV soln 200 ML IV PRN ×2 (00:07→17:30)
[2021-01-01] MEDS: lactulose 20gm/30ml cup OGT SCH ×4 (02:00→20:00)
[2021-01-01] MEDS: mineral oil/petrolatum ophthal oint EACHEYE SCH ×4 (02:25→20:21)
[2021-01-01] MEDS: midazolam 100mg in NS 100ml 100 ML IV PRN ×4 (02:25→22:16)
[2021-01-01 02:44] LABS: ABG BASE EXCESS 16.9 mmol/L (-2.0-2.0); ABG HCO3 43.7 mmol/L (22.0-26.0); ABG OXYGEN SATURATION 88.2 % (94-97); ABG PCO2 (T) 65.8 mmHg (32.0-45.0); ABG PO2 (T) 55.4 mmHg (75.0-100.0); ALLEN'S TEST POSITIVE; FCOHb 1.7 % (0.0-3.9); FMetHb 0.3 % (0.0-1.5); FO2Hb 86.4 % (94-97); PEEP 10 cm H2O; RESPIRATORY RATE 32 b/min; TIDAL VOLUME 400 mL; TOTAL HEMOGLOBIN 10.5 G/dl (12.0-16.0)
[2021-01-01 03:14] LABS: BASOPHILS % (AUTO) 0.3 % (0-1); EOSINOPHILS # (AUTO) 0.2 X10'3 (0-0.9); EOSINOPHILS % (AUTO) 1.6 % (0-6); HEMATOCRIT 28.2 % (35.0-45.0); HEMOGLOBIN 9.6 g/dl (12.0-16.0); LYMPHOCYTES # (AUTO) 0.8 X10'3 (1.1-4.8); LYMPHOCYTES % (AUTO) 5.7 % (21-51); MEAN CORPUSCULAR HGB CONC 33.9 g/dL (33.0-36.5); MEAN CORPUSCULAR VOLUME 88.4 FL (78-98); MEAN PLATELET VOLUME 7.8 FL (7.4-10.4); MONOCYTES # (AUTO) 0.5 X10'3 (0-0.9); MONOCYTES % (AUTO) 3.2 % (2-12); NEUTROPHILS # (AUTO) 12.8 X10'3 (1.8-7.7); NEUTROPHILS % (AUTO) 89.2 % (42-75); PLATELET COUNT 202 X10'3 (140-440); RED BLOOD COUNT 3.19 X10'6 (4.20-5.60); RED CELL DISTRIBUTION WIDTH 17.1 % (11.5-14.5); WHITE BLOOD COUNT 14.4 X10'3 (4.5-11.0)
[2021-01-01 03:15] LABS: ALANINE AMINOTRANSFERASE 32 U/L (12-78); ALBUMIN 2.5 G/DL (3.4-5.0); ALBUMIN/GLOBULIN RATIO 0.8 (1.1-1.5); ALKALINE PHOSPHATASE 116 IU/L (46-116); ANION GAP 4 (8-16); ASPARTATE AMINO TRANSFERASE 21 U/L (10-37); BILIRUBIN,TOTAL 0.4 MG/DL (0.1-1.0); BLOOD UREA NITROGEN 23 MG/DL (7-18); BUN/CREATININE RATIO 35.9 (6.6-38.0); C-REACTIVE PROTEIN 3.51 MG/DL (0.0-0.5); CALCIUM 8.1 MG/DL (8.5-10.1); CHLORIDE 87 MMOL/L (99-107); CREATININE 0.64 MG/DL (0.40-0.90); GLUCOSE 179 MG/DL (70-104); LACTATE DEHYDROGENASE 238 U/L (81-234); MAGNESIUM 1.6 MG/DL (1.5-2.4); PHOSPHORUS 3.1 MG/DL (2.3-4.5); POTASSIUM 3.1 MMOL/L (3.5-5.1); SODIUM 130 MMOL/L (135-145); TOTAL CARBON DIOXIDE 38.6 MMOL/L (24-32); TOTAL PROTEIN 5.8 G/DL (6.4-8.2); eGFR > 90 ML/MIN
--- NOTE | 2021-01-01 06:33 | NUR ---
Bedside report given to LUIS Lenz. K+ 3.1 iv replacement K+ was ordered. Pt's FIO2 increased to 100% by respiratory.
--- NOTE | 2021-01-01 06:36 | NUR ---
Patient in room CICU 2008. I have received report from Crow SMITH. and had the opportunity to ask questions and assume patient care.
[2021-01-01] MEDS ORDERED: VANCOMYCIN LEVEL IV ONE (07:30)
[2021-01-01] MEDS: vancomycin/NS 1 GM ADD-VANTAGE 250 ML IV SCH (07:37)
[2021-01-01] MEDS: nicotine 21mg patch - 24 hr TD SCH (07:37)
[2021-01-01] MEDS: potassium Cl 40MEQ/250ML bag 270 ML IV PRN (07:37)
[2021-01-01] MEDS: pantoprazole 40 MG vial IV SCH (07:38)
[2021-01-01] MEDS: lactobacillus rhamnosus 10,000 MMU CELLS/CAPSULE OGT SCH ×2 (07:40→20:19)
[2021-01-01] MEDS: venlafaxine 37.5mg tablet OGT SCH (07:40)
[2021-01-01] MEDS: cholecalciferol (vitamin D3) 1,000 unit (25mcg) tablet OGT SCH (07:40)
[2021-01-01] MEDS: amLODIPine 5mg tablet OGT SCH (07:41)
[2021-01-01] MEDS: furosemide 20 MG/2 ML vial IV SCH (07:41)
[2021-01-01] MEDS: metolazone 2.5mg tablet OGT SCH (07:42)
[2021-01-01] MEDS: methylnaltrexone br 12mg/0.6ml inj***SubQ only SQ SCH (07:42)
[2021-01-01] MEDS: K and/or MAG REPLACEMENT MC SCH ×2 (07:42→20:00)
[2021-01-01] MEDS: sennosides/docusate sodium tablet OGT SCH ×2 (07:42→20:00)
[2021-01-01] MEDS: losartan 50mg tablet PO SCH (07:53)
[2021-01-01] MEDS: DEXMEDETOMIDINE 400MCG in NORMAL SALINE 100ml IV SCH ×2 (09:13→19:34)
--- NOTE | 2021-01-01 09:31 | NUR ---
Reassessment: Pt remains intubated and TF now at goal rate. GRV remains elevated though improving and WNL with range 165-410 mL over the last 24 hours. Noted Relistor is being held d/t pt with diarrhea. Recommend continuing with Relistor to assist with TF tolerance. Pt may also benefit from prokinetic agent for additional assistance. Serum Na down to 130 MMOL/L, water flushes have been discontinued since 12/30 per MD. LBM 01/01 with 100 mL stool output from rectal tube so far, documented with 300 mL stool output 12/31. Routine bowel care being held at this time. Will continue to follow closely. Recommendations: 1. Continuous TF via OGT using Vital AF with 60 mL/hr goal to provide 1440 mL total volume/day, 1728 kcal, 1166 mL water, and 108 g protein 2. Prealbumin q /; daily scaled wts 3. No water flushes at this time per MD given low serum Na; monitor serum Na 4. Routine bowel care; opioid antagonist per MD; consider prokinetic agent to assist with TF tolerance Addendum: 01/01/21 at [address] Amended: Links added.
--- NOTE | 2021-01-01 10:00 | NUR ---
Spoke with daughter Inés over the phone and gave update on pt's condition.
[2021-01-01] MEDS ORDERED: dextrose ORAL solution 15 GM/59 ML bottle OGT PRN (11:35)
[2021-01-01] MEDS: metoprolol tartrate 1mg/ml inj IV PRN (11:53)
--- NOTE | 2021-01-01 18:14 | NUR ---
Problems reprioritized. Patient report given, questions answered & plan of care reviewed with Crow RN.
[2021-01-01] MEDS: insulin glargine (Lantus) pen - multi-dose SQ SCH (20:22)
[2021-01-02] VITALS (27 sets, daily range): BP systolic 85–129; BP diastolic 47–74
[2021-01-02] MEDS: mineral oil/petrolatum ophthal oint EACHEYE SCH ×4 (01:00→20:00)
[2021-01-02] MEDS: heparin, porcine 5000 units/ml vial SQ SCH ×3 (01:00→16:27)
[2021-01-02] MEDS: lactulose 20gm/30ml cup OGT SCH ×4 (01:01→20:00)
[2021-01-02] MEDS: DEXMEDETOMIDINE 400MCG in NORMAL SALINE 100ml IV SCH ×4 (03:11→23:20)
[2021-01-02 03:17] LABS: ABG BASE EXCESS 16.9 mmol/L (-2.0-2.0); ABG HCO3 43.9 mmol/L (22.0-26.0); ABG PCO2 (T) 69.3 mmHg (32.0-45.0); ABG PO2 (T) 60.2 mmHg (75.0-100.0); ALLEN'S TEST POSITIVE; FCOHb 1.7 % (0.0-3.9); FMetHb 0.3 % (0.0-1.5); FO2Hb 88.2 % (94-97); PATIENT TEMPERATURE 37.5; PEEP 10 cm H2O; RESPIRATORY RATE 32 b/min; TIDAL VOLUME 400 mL; TOTAL HEMOGLOBIN 10.1 G/dl (12.0-16.0)
[2021-01-02 04:02] LABS: BASOPHILS % (AUTO) 0.3 % (0-1); EOSINOPHILS # (AUTO) 0.2 X10'3 (0-0.9); EOSINOPHILS % (AUTO) 1.4 % (0-6); HEMATOCRIT 26.4 % (35.0-45.0); LYMPHOCYTES # (AUTO) 0.8 X10'3 (1.1-4.8); LYMPHOCYTES % (AUTO) 4.8 % (21-51); MEAN CORPUSCULAR HEMOGLOBIN 30.1 PG (27.0-31.0); MEAN CORPUSCULAR HGB CONC 34.3 g/dL (33.0-36.5); MEAN CORPUSCULAR VOLUME 87.8 FL (78-98); MEAN PLATELET VOLUME 8.1 FL (7.4-10.4); MONOCYTES # (AUTO) 0.5 X10'3 (0-0.9); MONOCYTES % (AUTO) 2.8 % (2-12); NEUTROPHILS # (AUTO) 15.2 X10'3 (1.8-7.7); NEUTROPHILS % (AUTO) 90.7 % (42-75); PLATELET COUNT 211 X10'3 (140-440); RED CELL DISTRIBUTION WIDTH 16.9 % (11.5-14.5); WHITE BLOOD COUNT 16.7 X10'3 (4.5-11.0)
[2021-01-02 04:20] LABS: ALANINE AMINOTRANSFERASE 30 U/L (12-78); ALBUMIN 2.1 G/DL (3.4-5.0); ALBUMIN/GLOBULIN RATIO 0.6 (1.1-1.5); ALKALINE PHOSPHATASE 119 IU/L (46-116); ANION GAP 2 (8-16); ASPARTATE AMINO TRANSFERASE 19 U/L (10-37); BILIRUBIN,TOTAL 0.4 MG/DL (0.1-1.0); BLOOD UREA NITROGEN 26 MG/DL (7-18); BUN/CREATININE RATIO 38.2 (6.6-38.0); C-REACTIVE PROTEIN 6.16 MG/DL (0.0-0.5); CALCIUM 7.7 MG/DL (8.5-10.1); CHLORIDE 89 MMOL/L (99-107); CREATININE 0.68 MG/DL (0.40-0.90); GLUCOSE 159 MG/DL (70-104); LACTATE DEHYDROGENASE 236 U/L (81-234); MAGNESIUM 1.4 MG/DL (1.5-2.4); PHOSPHORUS 2.7 MG/DL (2.3-4.5); POTASSIUM 3.1 MMOL/L (3.5-5.1); SODIUM 131 MMOL/L (135-145); TOTAL CARBON DIOXIDE 39.9 MMOL/L (24-32); TOTAL PROTEIN 5.6 G/DL (6.4-8.2); eGFR 88 ML/MIN
[2021-01-02] MEDS: midazolam 100mg in NS 100ml 100 ML IV PRN ×4 (05:21→23:21)
--- NOTE | 2021-01-02 06:52 | NUR ---
Bedside shit report given to LUIS Schwartz.
[2021-01-02] MEDS: fentaNYL/PF inj 2,500 MCG in normal saline 250ml IV soln 200 ML IV PRN ×2 (07:12→23:22)
[2021-01-02] MEDS: potassium Cl 40MEQ/250ML bag 270 ML IV PRN (07:13)
[2021-01-02] MEDS: K and/or MAG REPLACEMENT MC SCH ×2 (07:31→20:00)
[2021-01-02] MEDS: sennosides/docusate sodium tablet OGT SCH ×2 (07:32→20:00)
[2021-01-02] MEDS: amLODIPine 5mg tablet OGT SCH (08:00)
[2021-01-02] MEDS: losartan 50mg tablet PO SCH (08:00)
[2021-01-02] MEDS: furosemide 20 MG/2 ML vial IV SCH (08:00)
[2021-01-02] MEDS ORDERED: magnesium 2GM in 50ml NS 50 ML IV PRN (08:05)
[2021-01-02] MEDS: metolazone 2.5mg tablet OGT SCH (08:13)
[2021-01-02] MEDS: lactobacillus rhamnosus 10,000 MMU CELLS/CAPSULE OGT SCH ×2 (08:13→20:00)
[2021-01-02] MEDS: venlafaxine 37.5mg tablet OGT SCH (08:13)
[2021-01-02] MEDS: pantoprazole 40 MG vial IV SCH (08:14)
[2021-01-02] MEDS: nicotine 21mg patch - 24 hr TD SCH (08:14)
[2021-01-02] MEDS: cholecalciferol (vitamin D3) 1,000 unit (25mcg) tablet OGT SCH (08:14)
[2021-01-02] MEDS: vancomycin/NS 1 GM ADD-VANTAGE 250 ML IV SCH (08:14)
[2021-01-02 17:08] LABS: ABG BASE EXCESS 12.9 mmol/L (-2.0-2.0); ABG HCO3 39.8 mmol/L (22.0-26.0); ABG PCO2 (T) 68.1 mmHg (32.0-45.0); ABG PO2 (T) 58.3 mmHg (75.0-100.0); ALLEN'S TEST POSITIVE; FCOHb 1.6 % (0.0-3.9); FMetHb 0.1 % (0.0-1.5); FO2Hb 86.5 % (94-97); PATIENT TEMPERATURE 37.8; PEEP 10 cm H2O; RESPIRATORY RATE 30 b/min; TIDAL VOLUME 400 mL; TOTAL HEMOGLOBIN 9.7 G/dl (12.0-16.0)
[2021-01-02] MEDS: insulin glargine (Lantus) pen - multi-dose SQ SCH (21:00)
[2021-01-03] VITALS (24 sets, daily range): BP systolic 82–117; BP diastolic 44–65
[2021-01-03] MEDS: heparin, porcine 5000 units/ml vial SQ SCH ×3 (01:22→15:56)
[2021-01-03] MEDS: lactulose 20gm/30ml cup OGT SCH ×4 (02:00→20:00)
[2021-01-03] MEDS: mineral oil/petrolatum ophthal oint EACHEYE SCH ×4 (02:00→20:50)
[2021-01-03 03:09] LABS: ABG HCO3 39.7 mmol/L (22.0-26.0); ABG OXYGEN SATURATION 87.1 % (94-97); ABG PCO2 (T) 74.2 mmHg (32.0-45.0); ALLEN'S TEST POSITIVE; FCOHb 1.5 % (0.0-3.9); FMetHb 0.3 % (0.0-1.5); FO2Hb 85.5 % (94-97); PATIENT TEMPERATURE 37.6; PEEP 10 cm H2O; RESPIRATORY RATE 30 b/min; TIDAL VOLUME 400 mL; TOTAL HEMOGLOBIN 9.9 G/dl (12.0-16.0)
[2021-01-03 03:30] LABS: BASOPHILS # (AUTO) 0.1 X10'3 (0-0.2); BASOPHILS % (AUTO) 0.4 % (0-1); EOSINOPHILS # (AUTO) 0.2 X10'3 (0-0.9); EOSINOPHILS % (AUTO) 1.1 % (0-6); HEMATOCRIT 26.7 % (35.0-45.0); HEMOGLOBIN 8.7 g/dl (12.0-16.0); LYMPHOCYTES # (AUTO) 0.7 X10'3 (1.1-4.8); LYMPHOCYTES % (AUTO) 4.4 % (21-51); MEAN CORPUSCULAR HEMOGLOBIN 29.8 PG (27.0-31.0); MEAN CORPUSCULAR HGB CONC 32.7 g/dL (33.0-36.5); MEAN CORPUSCULAR VOLUME 91.2 FL (78-98); MEAN PLATELET VOLUME 8.1 FL (7.4-10.4); MONOCYTES # (AUTO) 0.5 X10'3 (0-0.9); MONOCYTES % (AUTO) 3.1 % (2-12); NEUTROPHILS # (AUTO) 15.1 X10'3 (1.8-7.7); PLATELET COUNT 200 X10'3 (140-440); RED BLOOD COUNT 2.93 X10'6 (4.20-5.60); RED CELL DISTRIBUTION WIDTH 17.1 % (11.5-14.5); WHITE BLOOD COUNT 16.6 X10'3 (4.5-11.0)
[2021-01-03 03:39] LABS: ALANINE AMINOTRANSFERASE 31 U/L (12-78); ALBUMIN 1.8 G/DL (3.4-5.0); ALBUMIN/GLOBULIN RATIO 0.4 (1.1-1.5); ALKALINE PHOSPHATASE 164 IU/L (46-116); ANION GAP 3 (8-16); ASPARTATE AMINO TRANSFERASE 18 U/L (10-37); BILIRUBIN,TOTAL 0.3 MG/DL (0.1-1.0); BLOOD UREA NITROGEN 30 MG/DL (7-18); CALCIUM 8.1 MG/DL (8.5-10.1); CHLORIDE 89 MMOL/L (99-107); CREATININE 0.77 MG/DL (0.40-0.90); GLUCOSE 163 MG/DL (70-104); LACTATE DEHYDROGENASE 212 U/L (81-234); MAGNESIUM 1.8 MG/DL (1.5-2.4); PHOSPHORUS 3.1 MG/DL (2.3-4.5); POTASSIUM 3.6 MMOL/L (3.5-5.1); PREALBUMIN 13.9 MG/DL (19-36); SODIUM 129 MMOL/L (135-145); TOTAL CARBON DIOXIDE 36.7 MMOL/L (24-32); TRIGLYCERIDES 137 MG/DL (20-135); eGFR 76 ML/MIN
[2021-01-03] MEDS: midazolam 100mg in NS 100ml 100 ML IV PRN ×2 (06:31→14:46)
[2021-01-03] MEDS: DEXMEDETOMIDINE 400MCG in NORMAL SALINE 100ml IV SCH ×2 (07:13→20:49)
[2021-01-03] MEDS ORDERED: furosemide 40mg/4ml inj IV ONE (07:55)
[2021-01-03] MEDS: sennosides/docusate sodium tablet OGT SCH ×2 (08:00→20:00)
[2021-01-03] MEDS: metolazone 2.5mg tablet OGT SCH (08:00)
[2021-01-03] MEDS: furosemide 20 MG/2 ML vial IV SCH (08:00)
[2021-01-03] MEDS: K and/or MAG REPLACEMENT MC SCH ×2 (08:00→20:00)
[2021-01-03] MEDS: amLODIPine 5mg tablet OGT SCH (08:00)
[2021-01-03] MEDS: losartan 50mg tablet PO SCH (08:00)
[2021-01-03] MEDS: pantoprazole 40 MG vial IV SCH (09:29)
[2021-01-03] MEDS: nicotine 21mg patch - 24 hr TD SCH (09:29)
[2021-01-03] MEDS: lactobacillus rhamnosus 10,000 MMU CELLS/CAPSULE OGT SCH ×2 (09:31→20:00)
[2021-01-03] MEDS: venlafaxine 37.5mg tablet OGT SCH (09:32)
[2021-01-03] MEDS: cholecalciferol (vitamin D3) 1,000 unit (25mcg) tablet OGT SCH (09:32)
[2021-01-03] MEDS: vancomycin/NS 1 GM ADD-VANTAGE 250 ML IV SCH (09:39)
[2021-01-03] MEDS: acetaminophen 325mg tablet OGT PRN (10:41)
[2021-01-03] MEDS: fentaNYL/PF inj 2,500 MCG in normal saline 250ml IV soln 200 ML IV PRN (15:52)
[2021-01-03] MEDS: insulin glargine (Lantus) pen - multi-dose SQ SCH (20:50)
[2021-01-04] VITALS (24 sets, daily range): BP systolic 69–153; BP diastolic 36–81
[2021-01-04] MEDS: heparin, porcine 5000 units/ml vial SQ SCH ×3 (00:46→15:29)
[2021-01-04] MEDS: midazolam 100mg in NS 100ml 100 ML IV PRN ×3 (00:47→19:47)
[2021-01-04] MEDS: lactulose 20gm/30ml cup OGT SCH ×4 (02:00→20:00)
[2021-01-04] MEDS: mineral oil/petrolatum ophthal oint EACHEYE SCH ×4 (02:17→19:48)
[2021-01-04] MEDS: DEXMEDETOMIDINE 400MCG in NORMAL SALINE 100ml IV SCH ×3 (02:17→19:48)
[2021-01-04 03:12] LABS: BASOPHILS % (AUTO) 0.3 % (0-1); EOSINOPHILS # (AUTO) 0.1 X10'3 (0-0.9); HEMATOCRIT 28.6 % (35.0-45.0); HEMOGLOBIN 9.6 g/dl (12.0-16.0); LYMPHOCYTES # (AUTO) 0.7 X10'3 (1.1-4.8); MEAN CORPUSCULAR HGB CONC 33.6 g/dL (33.0-36.5); MEAN CORPUSCULAR VOLUME 89.1 FL (78-98); MEAN PLATELET VOLUME 7.7 FL (7.4-10.4); MONOCYTES # (AUTO) 0.4 X10'3 (0-0.9); MONOCYTES % (AUTO) 3.5 % (2-12); NEUTROPHILS # (AUTO) 10.6 X10'3 (1.8-7.7); NEUTROPHILS % (AUTO) 89.2 % (42-75); PLATELET COUNT 176 X10'3 (140-440); RED CELL DISTRIBUTION WIDTH 17.1 % (11.5-14.5); WHITE BLOOD COUNT 11.9 X10'3 (4.5-11.0)
[2021-01-04 03:37] LABS: ALANINE AMINOTRANSFERASE 40 U/L (12-78); ALBUMIN 1.6 G/DL (3.4-5.0); ALBUMIN/GLOBULIN RATIO 0.4 (1.1-1.5); ALKALINE PHOSPHATASE 216 IU/L (46-116); ANION GAP 4 (8-16); ASPARTATE AMINO TRANSFERASE 23 U/L (10-37); BILIRUBIN,TOTAL 0.3 MG/DL (0.1-1.0); BLOOD UREA NITROGEN 38 MG/DL (7-18); BUN/CREATININE RATIO 52.1 (6.6-38.0); C-REACTIVE PROTEIN 9.14 MG/DL (0.0-0.5); CALCIUM 8.2 MG/DL (8.5-10.1); CHLORIDE 86 MMOL/L (99-107); CREATININE 0.73 MG/DL (0.40-0.90); GLUCOSE 161 MG/DL (70-104); LACTATE DEHYDROGENASE 206 U/L (81-234); MAGNESIUM 1.5 MG/DL (1.5-2.4); PHOSPHORUS 3.6 MG/DL (2.3-4.5); SODIUM 129 MMOL/L (135-145); TOTAL PROTEIN 6.1 G/DL (6.4-8.2); eGFR 81 ML/MIN
[2021-01-04 03:53] LABS: POTASSIUM 2.8 MMOL/L (3.5-5.1)
[2021-01-04] MEDS ORDERED: NORepinephrine 8mg/ 250ml NS 250 ML IV ONE (04:36)
[2021-01-04 04:42] LABS: ABG BASE EXCESS 13.4 mmol/L (-2.0-2.0); ABG HCO3 40.1 mmol/L (22.0-26.0); ABG OXYGEN SATURATION 93.8 % (94-97); ABG PCO2 (T) 64.7 mmHg (32.0-45.0); ABG PO2 (T) 70.4 mmHg (75.0-100.0); ALLEN'S TEST POSITIVE; FCOHb 1.2 % (0.0-3.9); FMetHb 0.3 % (0.0-1.5); FO2Hb 92.4 % (94-97); PATIENT TEMPERATURE 36.6; PEEP 10 cm H2O; TIDAL VOLUME 400 mL; TOTAL HEMOGLOBIN 9.3 G/dl (12.0-16.0)
[2021-01-04] MEDS: potassium Cl 40MEQ/250ML bag 270 ML IV PRN (05:14)
--- NOTE | 2021-01-04 06:25 | NUR ---
Patient in room CICU 2008. I have received report from Erinn SMITH and had the opportunity to ask questions and assume patient care.
[2021-01-04] MEDS: pantoprazole 40 MG vial IV SCH (07:58)
[2021-01-04] MEDS: cholecalciferol (vitamin D3) 1,000 unit (25mcg) tablet OGT SCH (07:58)
[2021-01-04] MEDS: lactobacillus rhamnosus 10,000 MMU CELLS/CAPSULE OGT SCH ×2 (07:59→20:00)
[2021-01-04] MEDS: nicotine 21mg patch - 24 hr TD SCH (07:59)
[2021-01-04] MEDS: losartan 50mg tablet PO SCH (07:59)
[2021-01-04] MEDS: venlafaxine 37.5mg tablet OGT SCH (07:59)
[2021-01-04] MEDS: sennosides/docusate sodium tablet OGT SCH ×2 (08:00→20:00)
[2021-01-04] MEDS: furosemide 20 MG/2 ML vial IV SCH (08:00)
[2021-01-04] MEDS: amLODIPine 5mg tablet OGT SCH (08:00)
[2021-01-04] MEDS: K and/or MAG REPLACEMENT MC SCH ×2 (08:00→19:48)
--- NOTE | 2021-01-04 10:59 | NUR ---
Reassessment: Pt remains intubated and tolerating TF at goal rate with GRV WNL. Serum Na remains low at 129 MMOL/L, water flushes continue to be held. LBM 01/04 documented as diarrhea and routine bowel care held today, previously without a BM since 01/01. No changes to nutrition recommendations at this time. Will continue to follow. Recommendations: 1. Continuous TF via OGT using Vital AF with 60 mL/hr goal to provide 1440 mL total volume/day, 1728 kcal, 1166 mL water, and 108 g protein 2. Prealbumin q /; daily scaled wts 3. No water flushes at this time per MD given low serum Na; monitor serum Na 4. Routine bowel care Addendum: 01/04/21 at [address] Amended: Links added.
--- NOTE | 2021-01-04 11:05 | NUR ---
Family meeting had with son Rob and daughter Inés, case management and Dr. Cummings at bedside. Discussed code status change and family agrees to change pt to DNR and to continue treatment at this time.
[2021-01-04] MEDS: fentaNYL/PF inj 2,500 MCG in normal saline 250ml IV soln 200 ML IV PRN (13:13)
--- NOTE | 2021-01-04 18:18 | NUR ---
Problems reprioritized. Patient report given, questions answered & plan of care reviewed with Erinn SMITH.
[2021-01-04] MEDS: insulin glargine (Lantus) pen - multi-dose SQ SCH (21:00)
[2021-01-05] VITALS (24 sets, daily range): BP systolic 78–129; BP diastolic 45–79
[2021-01-05] MEDS: lactulose 20gm/30ml cup OGT SCH ×4 (02:00→20:00)
[2021-01-05] MEDS: midazolam 100mg in NS 100ml 100 ML IV PRN ×3 (02:57→19:02)
[2021-01-05] MEDS: fentaNYL/PF inj 2,500 MCG in normal saline 250ml IV soln 200 ML IV PRN ×2 (02:58→18:51)
[2021-01-05] MEDS: DEXMEDETOMIDINE 400MCG in NORMAL SALINE 100ml IV SCH ×4 (02:59→23:12)
[2021-01-05] MEDS: mineral oil/petrolatum ophthal oint EACHEYE SCH ×4 (02:59→20:00)
[2021-01-05 03:10] LABS: BASOPHILS % (AUTO) 0.3 % (0-1); EOSINOPHILS # (AUTO) 0.2 X10'3 (0-0.9); EOSINOPHILS % (AUTO) 1.7 % (0-6); HEMATOCRIT 25.4 % (35.0-45.0); HEMOGLOBIN 8.1 g/dl (12.0-16.0); LYMPHOCYTES # (AUTO) 0.8 X10'3 (1.1-4.8); LYMPHOCYTES % (AUTO) 6.8 % (21-51); MEAN CORPUSCULAR HEMOGLOBIN 29.5 PG (27.0-31.0); MEAN CORPUSCULAR VOLUME 92.1 FL (78-98); MEAN PLATELET VOLUME 7.3 FL (7.4-10.4); MONOCYTES # (AUTO) 0.5 X10'3 (0-0.9); MONOCYTES % (AUTO) 4.6 % (2-12); NEUTROPHILS # (AUTO) 10.4 X10'3 (1.8-7.7); NEUTROPHILS % (AUTO) 86.6 % (42-75); PLATELET COUNT 244 X10'3 (140-440); RED BLOOD COUNT 2.76 X10'6 (4.20-5.60); WHITE BLOOD COUNT 11.9 X10'3 (4.5-11.0)
[2021-01-05 03:48] LABS: ALANINE AMINOTRANSFERASE 67 U/L (12-78); ALBUMIN 1.5 G/DL (3.4-5.0); ALBUMIN/GLOBULIN RATIO 0.3 (1.1-1.5); ALKALINE PHOSPHATASE 330 IU/L (46-116); ANION GAP -1 (8-16); ASPARTATE AMINO TRANSFERASE 34 U/L (10-37); BILIRUBIN,TOTAL 0.3 MG/DL (0.1-1.0); BLOOD UREA NITROGEN 36 MG/DL (7-18); BUN/CREATININE RATIO 50.7 (6.6-38.0); C-REACTIVE PROTEIN 9.83 MG/DL (0.0-0.5); CALCIUM 8.5 MG/DL (8.5-10.1); CHLORIDE 94 MMOL/L (99-107); CREATININE 0.71 MG/DL (0.40-0.90); GLUCOSE 140 MG/DL (70-104); LACTATE DEHYDROGENASE 271 U/L (81-234); MAGNESIUM 1.4 MG/DL (1.5-2.4); PHOSPHORUS 3.4 MG/DL (2.3-4.5); POTASSIUM 3.8 MMOL/L (3.5-5.1); SODIUM 131 MMOL/L (135-145); TOTAL CARBON DIOXIDE 37.6 MMOL/L (24-32); eGFR 83 ML/MIN
[2021-01-05] MEDS ORDERED: NORepinephrine 8mg/ 250ml NS 250 ML IV SCH (07:50)
[2021-01-05] MEDS: furosemide 20 MG/2 ML vial IV SCH (08:00)
[2021-01-05] MEDS: amLODIPine 5mg tablet OGT SCH (08:00)
[2021-01-05] MEDS: losartan 50mg tablet PO SCH (08:00)
[2021-01-05] MEDS: K and/or MAG REPLACEMENT MC SCH ×2 (08:00→20:00)
[2021-01-05] MEDS: sennosides/docusate sodium tablet OGT SCH ×2 (08:00→20:00)
[2021-01-05] MEDS: nicotine 21mg patch - 24 hr TD SCH (09:00)
[2021-01-05] MEDS: pantoprazole 40 MG vial IV SCH (09:00)
[2021-01-05] MEDS: venlafaxine 37.5mg tablet OGT SCH (09:01)
[2021-01-05] MEDS: lactobacillus rhamnosus 10,000 MMU CELLS/CAPSULE OGT SCH ×2 (09:01→20:00)
[2021-01-05] MEDS: cholecalciferol (vitamin D3) 1,000 unit (25mcg) tablet OGT SCH (09:01)
[2021-01-05] MEDS: heparin, porcine 5000 units/ml vial SQ SCH ×3 (09:20→17:15)
[2021-01-05] MEDS: insulin glargine (Lantus) pen - multi-dose SQ SCH (21:00)
[2021-01-06] VITALS (21 sets, daily range): BP systolic 63–124; BP diastolic 32–76
[2021-01-06] MEDS: lactulose 20gm/30ml cup OGT SCH ×4 (02:00→21:50)
[2021-01-06] MEDS: mineral oil/petrolatum ophthal oint EACHEYE SCH ×4 (02:48→20:00)
[2021-01-06 03:21] LABS: C-REACTIVE PROTEIN 9.92 MG/DL (0.0-0.5); LACTATE DEHYDROGENASE 396 U/L (81-234)
[2021-01-06] MEDS: midazolam 100mg in NS 100ml 100 ML IV PRN ×3 (03:42→23:43)
[2021-01-06] MEDS: fentaNYL/PF inj 2,500 MCG in normal saline 250ml IV soln 200 ML IV PRN ×2 (07:04→17:39)
[2021-01-06] MEDS: DEXMEDETOMIDINE 400MCG in NORMAL SALINE 100ml IV SCH ×6 (07:05→21:50)
[2021-01-06 07:08] LABS: ALANINE AMINOTRANSFERASE 74 U/L (12-78); ALBUMIN 1.5 G/DL (3.4-5.0); ALBUMIN/GLOBULIN RATIO 0.3 (1.1-1.5); ALKALINE PHOSPHATASE 366 IU/L (46-116); ANION GAP 7 (8-16); ASPARTATE AMINO TRANSFERASE 36 U/L (10-37); BILIRUBIN,TOTAL 0.3 MG/DL (0.1-1.0); BLOOD UREA NITROGEN 35 MG/DL (7-18); BUN/CREATININE RATIO 53.8 (6.6-38.0); CALCIUM 8.2 MG/DL (8.5-10.1); CHLORIDE 92 MMOL/L (99-107); CREATININE 0.65 MG/DL (0.40-0.90); GLUCOSE 193 MG/DL (70-104); MAGNESIUM 1.3 MG/DL (1.5-2.4); POTASSIUM 3.5 MMOL/L (3.5-5.1); SODIUM 134 MMOL/L (135-145); TOTAL CARBON DIOXIDE 35.4 MMOL/L (24-32); TOTAL PROTEIN 6.4 G/DL (6.4-8.2); eGFR > 90 ML/MIN
[2021-01-06] MEDS: amLODIPine 5mg tablet OGT SCH (08:00)
[2021-01-06] MEDS: losartan 50mg tablet PO SCH (08:00)
[2021-01-06] MEDS: nicotine 21mg patch - 24 hr TD SCH (08:38)
[2021-01-06] MEDS: furosemide 20 MG/2 ML vial IV SCH (08:38)
[2021-01-06] MEDS: sennosides/docusate sodium tablet OGT SCH ×2 (08:39→21:51)
[2021-01-06] MEDS: lactobacillus rhamnosus 10,000 MMU CELLS/CAPSULE OGT SCH ×2 (08:39→21:51)
[2021-01-06] MEDS: venlafaxine 37.5mg tablet OGT SCH (08:40)
[2021-01-06] MEDS: cholecalciferol (vitamin D3) 1,000 unit (25mcg) tablet OGT SCH (08:41)
[2021-01-06] MEDS: heparin, porcine 5000 units/ml vial SQ SCH ×3 (08:41→17:30)
[2021-01-06] MEDS: pantoprazole 40 MG vial IV SCH (08:43)
[2021-01-06] MEDS: K and/or MAG REPLACEMENT MC SCH ×2 (08:45→20:00)
[2021-01-06] MEDS: insulin glargine (Lantus) pen - multi-dose SQ SCH (21:00)
[2021-01-06] MEDS: acetaminophen 325mg tablet OGT PRN (21:51)
[2021-01-06] MEDS: ALPRAZolam 0.5mg tablet OGT PRN (21:51)
[2021-01-07] VITALS: BP 115/67
[2021-01-07] MEDS: heparin, porcine 5000 units/ml vial SQ SCH
[2021-01-07] MEDS: metoprolol tartrate 1mg/ml inj IV PRN (00:25)
[2021-01-07 01:00] VITALS: BP 64/40
[2021-01-07] MEDS ORDERED: acetaminophen 1,000mg/100ml IV 100 ML IV ONE (01:40)
[2021-01-07 02:00] VITALS: BP 104/62
[2021-01-07 03:00] VITALS: BP 88/44
[2021-01-07 03:09] LABS: ABG BASE EXCESS 6.5 mmol/L (-2.0-2.0); ABG HCO3 36.6 mmol/L (22.0-26.0); ABG OXYGEN SATURATION 82.8 % (94-97); ABG PCO2 (T) 114.6 mmHg (32.0-45.0); ABG PO2 (T) 64.4 mmHg (75.0-100.0); ALLEN'S TEST Modified; FCOHb 2.3 % (0.0-3.9); FMetHb 0.3 % (0.0-1.5); FO2Hb 80.6 % (94-97); PATIENT TEMPERATURE 40.3; PEEP 10 cm H2O; RESPIRATORY RATE 30 b/min; TIDAL VOLUME 400 mL; TOTAL HEMOGLOBIN 8.9 G/dl (12.0-16.0)
[2021-01-07 03:29] LABS: C-REACTIVE PROTEIN 10.49 MG/DL (0.0-0.5)
--- NOTE | 2021-01-07 03:38 | NUR ---
MD Florentino notified of critical abg results and current pt clinical presentation/assessment; no new orders obtained at this time; Family notified (daughter) of pt current deterioration, given opportunity to ask questions, daughter verbalized would call back to unit.
== END 2021-01-07 12:29 | DRG 207 ==
LOC: ER 07:22 → ED HOLD 11:00 → COVID IP 21:25 → ORTHO 4S 11-30 18:20 → CICU 2S 12-15 07:50
PROVIDERS: ADMIT Internal Medicine; ATTEND Internal Medicine
PROC: XW033E5 Introduction of Remdesivir Anti-infective into Peripheral Vein, Percutaneous Approach, New Technology Group 5 (ICD-10-PCS; 2020-11-17)
PROC: 5A0935A Assistance with Respiratory Ventilation, Less than 24 Consecutive Hours, High Flow/Velocity Cannula (ICD-10-PCS; 2020-11-18)
PROC: 5A0935A Assistance with Respiratory Ventilation, Less than 24 Consecutive Hours, High Flow/Velocity Cannula (ICD-10-PCS; 2020-11-19)
PROC: 5A0935A Assistance with Respiratory Ventilation, Less than 24 Consecutive Hours, High Flow/Velocity Cannula (ICD-10-PCS; 2020-11-20)
PROC: 5A0935A Assistance with Respiratory Ventilation, Less than 24 Consecutive Hours, High Flow/Velocity Cannula (ICD-10-PCS; 2020-11-21)
PROC: 5A0935A Assistance with Respiratory Ventilation, Less than 24 Consecutive Hours, High Flow/Velocity Cannula (ICD-10-PCS; 2020-11-22)
PROC: 5A0935A Assistance with Respiratory Ventilation, Less than 24 Consecutive Hours, High Flow/Velocity Cannula (ICD-10-PCS; 2020-11-23)
PROC: 5A0935A Assistance with Respiratory Ventilation, Less than 24 Consecutive Hours, High Flow/Velocity Cannula (ICD-10-PCS; 2020-11-26)
PROC: 5A0935A Assistance with Respiratory Ventilation, Less than 24 Consecutive Hours, High Flow/Velocity Cannula (ICD-10-PCS; 2020-11-29)
PROC: 5A0935A Assistance with Respiratory Ventilation, Less than 24 Consecutive Hours, High Flow/Velocity Cannula (ICD-10-PCS; 2020-12-01)
PROC: 5A0945A Assistance with Respiratory Ventilation, 24-96 Consecutive Hours, High Flow/Velocity Cannula (ICD-10-PCS; 2020-12-03)
PROC: 5A0935A Assistance with Respiratory Ventilation, Less than 24 Consecutive Hours, High Flow/Velocity Cannula (ICD-10-PCS; 2020-12-07)
PROC: 5A0935A Assistance with Respiratory Ventilation, Less than 24 Consecutive Hours, High Flow/Velocity Cannula (ICD-10-PCS; 2020-12-08)
PROC: 5A0935A Assistance with Respiratory Ventilation, Less than 24 Consecutive Hours, High Flow/Velocity Cannula (ICD-10-PCS; 2020-12-09)
PROC: 5A0935A Assistance with Respiratory Ventilation, Less than 24 Consecutive Hours, High Flow/Velocity Cannula (ICD-10-PCS; 2020-12-10)
PROC: 5A0945A Assistance with Respiratory Ventilation, 24-96 Consecutive Hours, High Flow/Velocity Cannula (ICD-10-PCS; 2020-12-12)
PROC: 5A09457 Assistance with Respiratory Ventilation, 24-96 Consecutive Hours, Continuous Positive Airway Pressure (ICD-10-PCS; 2020-12-15)
PROC: 5A0935A Assistance with Respiratory Ventilation, Less than 24 Consecutive Hours, High Flow/Velocity Cannula (ICD-10-PCS; 2020-12-17)
PROC: 5A09357 Assistance with Respiratory Ventilation, Less than 24 Consecutive Hours, Continuous Positive Airway Pressure (ICD-10-PCS; 2020-12-17)
PROC: 02HV33Z Insertion of Infusion Device into Superior Vena Cava, Percutaneous Approach (ICD-10-PCS; 2020-12-17)
PROC: B548ZZA Ultrasonography of Superior Vena Cava, Guidance (ICD-10-PCS; 2020-12-17)
PROC: 5A1955Z Respiratory Ventilation, Greater than 96 Consecutive Hours (ICD-10-PCS; principal; 2020-12-18)
PROC: 0BH17EZ Insertion of Endotracheal Airway into Trachea, Via Natural or Artificial Opening (ICD-10-PCS; 2020-12-18)
PROC: 30233N1 Transfusion of Nonautologous Red Blood Cells into Peripheral Vein, Percutaneous Approach (ICD-10-PCS; 2020-12-20)
PROC: 3E1G88Z Irrigation of Upper GI using Irrigating Substance, Via Natural or Artificial Opening Endoscopic (ICD-10-PCS; 2020-12-20)
PROC: 04HY32Z Insertion of Monitoring Device into Lower Artery, Percutaneous Approach (ICD-10-PCS; 2020-12-21)
PROC: 4A133B1 Monitoring of Arterial Pressure, Peripheral, Percutaneous Approach (ICD-10-PCS; 2020-12-21)
PROC: 4A133J1 Monitoring of Arterial Pulse, Peripheral, Percutaneous Approach (ICD-10-PCS; 2020-12-21)
DX: U07.1 COVID-19 (principal); J12.82 Pneumonia due to coronavirus disease 2019; A41.02 Sepsis due to Methicillin resistant Staphylococcus aureus; J80 Acute respiratory distress syndrome; R40.20 Unspecified coma; K92.2 Gastrointestinal hemorrhage, unspecified; N39.0 Urinary tract infection, site not specified; N17.9 Acute kidney failure, unspecified; J44.0 Chronic obstructive pulmonary disease with (acute) lower respiratory infection; E87.2 Acidosis; E87.0 Hyperosmolality and hypernatremia; B96.20 Unspecified Escherichia coli [E. coli] as the cause of diseases classified elsewhere; I50.9 Heart failure, unspecified; I95.9 Hypotension, unspecified; F41.9 Anxiety disorder, unspecified; I99.8 Other disorder of circulatory system; I11.0 Hypertensive heart disease with heart failure; K59.00 Constipation, unspecified; E87.6 Hypokalemia; Z66 Do not resuscitate; F32.9 Major depressive disorder, single episode, unspecified; K21.9 Gastro-esophageal reflux disease without esophagitis; R00.0 Tachycardia, unspecified; R79.82 Elevated C-reactive protein (CRP); Z79.899 Other long term (current) drug therapy; Z87.891 Personal history of nicotine dependence; Z98.891 History of uterine scar from previous surgery
CPT/HCPCS: 36415; 36430; 36573; 36600; 43255; 43753; 71045; 74018; 80048; 80053; 80202; 81001; 82330; 82803; 82948; 83605; 83615; 83735; 83880; 84100; 84132; 84134; 84145; 84478; 84484; 85007; 85018; 85025; 85027; 85379; 85610; 85730; 86140; 86870; 86885; 86900; 86901; 86902; 86905; 86920; 86922; 87040; 87070; 87077; 87081; 87088; 87186; 87635; 93005; 93306; 94002; 94003; 94660; 94760; 94799; 96365; 96368; 96375; 99152; 99153; 99285; C9113; C9803; G0378; J0131; J0692; J0696; J0780; J1100; J1644; J1650; J1815; J1940; J2060; J2212; J2250; J2270; J2405; J2597; J2765; J2920; J3010; J3370; J3475; J3480; J3490; J7030; J7042; J7050; J7060; J8540; P9016; P9045; P9047